=== PATIENT | female | born 1965 | race Hispanic/Latino ===

== ENCOUNTER 2022-04-28 15:01 | Emergency (ER) | payer OTHER ==
--- OUTSIDE RECORDS SUMMARY | 2022-04-28 15:04 | XMS REPORT | Continuity of Care Document ---
:1965 Author Organization [facility] t Address [address] [place] [address] Care Team Providers Name Role Phone Jose Roberto Jones Attending Clinician Unavailable Mariusz Hernadez DO Attending Clinician RICH TOLEDO Attending Clinician Unavailable Rich Toledo MD Attending Clinician Agapito CLINE Attending Clinician Doctor Unassigned, Name Attending Clinician Unavailable Scott Cheung MD Attending Clinician Scott CHEUNG Attending Clinician Unavailable Javi CLINE Attending Clinician Brad OGDEN C Attending Clinician JAVI Attending Clinician Unavailable Richie GLORIA Attending Clinician Unavailable Payers Payer Name Policy Type Policy Number Effective Date Expiration Date S ource Problems Condition Condition Condition Status Onset Resolution Last Treating Co mments Source Name Details Category Date Date Treatment Clinician Date Vaginal Vaginal Disease Active 2019- Univers itching itching 6-04 ity of 00:00: [address] Urinary Urinary Disease Active 2019- Univers frequency frequency 6-04 ity of 00:00: [address] 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 00:00: [place] vaginitis vaginitis 00 [facility] Branch H/O H/O Disease Active 2016-11 Overview: [place] s mammogram mammogram 09/20/17- i ty of 00:00: see [place] 00 scanned Medical records Branch WNL History of History of Disease Active U nivers thyroid thyroid 7 ity of disease disease 00:00: [place] 00 Medical Branch Post-menop Post-menop Disease Active U nivers ausal ausal 05-24 ity of 00:00: [place] 00 Medical Branch H/O tubal H/O tubal Disease Active Uni vers ligation ligation 05-24 ity of 00:00: [place] [facility] Depression Depression Disease Active U nivers 05-24 ity of 00:00: [place] 00 Medical Branch Generalize Generalize Disease Active U nivers d anxiety d anxiety 05-24 ity of disorder disorder 00:00: [place] [facility] Liver Liver Disease Active Univers disease disease 05-24 ity of 00:00: [place] 00 Medical Branch Obesity Obesity Disease Active Overview: Univ ers (BMI (BMI 7 ICD10 ity of 30-39.9) 30-39.9) 00:00: Diagnosis Dennys as 00 Term Medical Thoracic Medicine Specialist Branch Utility Well woman Well woman Disease Active Overview : Univers exam exam 05-24 ICD10 ity of 00:00: Diagnosis [place] Term Medical Thoracic Medicine Specialist Branch Utility Overweight Overweight Disease Active Overview : Univers 05-24 ICD10 ity of 00:00: Diagnosis [place] 00 Term Medical Thoracic Medicine Specialist Branch Utility Allergies, Adverse Reactions, Alerts Allergy Allergy Status Severity Reaction(s) Onset Inactive Treating Comm ents Source Name Type Date Date Clinician NO KNOWN Drug Active Univers ALLERGIE Class ity of [facility] Social History Social Habit Start Date Stop Date Quantity Comments Source Exposure to Not sure [place] of SARS-CoV-2 [place] [facility] (event) Branch Tobacco use and 2020-12-23 2020-12-23 Never used Universit y of exposure 00:00:00 00:00:00 [facility] Alcohol intake 2020-12-23 2020-12-23 Current University of 00:00:00 00:00:00 non-drinker of [facility] alcohol Branch (finding) Sex [birth year] At [birth year] Universit y of 00:00:00 00:00:00 [facility] Smoking Status Start Date Stop Date Source Never smoker [facility] Medications Ordered Filled Start Stop Current Ordering Indication Dosage Frequency Signature Comments Components Source Medication Medication Date Date Medication? Clinician (SIG) Name Name Fesoterodin Yes [id number] 4mg Take 1 Univers e (TOVIAZ) 2-01 tablet by ity of 4 mg tablet 00:00: mouth [place] 00 daily. Medical Branch Fesoterodin Yes [id number] 4mg Take 1 Univers e (TOVIAZ) 2-01 tablet by ity of 4 mg tablet 00:00: mouth [place] 00 daily. Medical Branch Fesoterodin Yes [id number] 4mg Take 1 Univers e (TOVIAZ) 2-01 tablet by ity of 4 mg tablet 00:00: mouth [place] 00 daily. Medical Branch mupirocin 2 Yes [id number] Apply to Univers % ointment 1-14 area(s) 3 ity of 00:00: (three) [place] 00 times Medical daily. Branch hydrOXYzine Yes [id number] 1 tablet Univers 25 mg 1-14 twice a ity of tablet 00:00: day as [place] 00 needed for Medical sleep Branch triamcinolo Yes [id number] Use BID on Univers ne 1-14 affected ity of acetonide 00:00[place] 0.1 % cream 00 body. Do [facility] not use on Branch face. mupirocin 2 Yes [id number] Apply to Univers % ointment 1-14 area(s) 3 ity of 00:00: (three) [place] 00 times Medical daily. Branch hydrOXYzine Yes [id number] 1 tablet Univers 25 mg 1-14 twice a ity of tablet 00:00: day as [place] 00 needed for Medical sleep Branch triamcinolo Yes [id number] Use BID on Univers ne 1-14 affected ity of acetonide 00:00[place] of [place] 0.1 % cream 00 body. Do [facility] not use on Branch face. mupirocin 2 Yes [id number] Apply to Univers % ointment 1-14 area(s) 3 ity of 00:00: (three) [place] 00 times Medical daily. Branch hydrOXYzine 2020-0 Yes [id number] 1 tablet Univers 25 mg 1-14 twice a ity of tablet 00:00: day as [place] 00 needed for Medical sleep Branch triamcinolo 2020-0 Yes [id number] Use BID on Univers ne 1-14 affected ity of acetonide 00:00: [place] of [place] 0.1 % cream 00 body. Do Medi matt not use on Branch face. mupirocin 2 2020-0 Yes [id number] Apply to Univers % ointment 1-14 area(s) 3 ity of 00:00: (three) [place] 00 times Medical daily. Branch hydrOXYzine 2020-0 Yes [id number] 1 tablet Univers 25 mg 1-14 twice a ity of tablet 00:00: day as [place] 00 needed for Medical sleep Branch triamcinolo 2020-0 Yes [id number] Use BID on Univers ne 1-14 affected ity of acetonide 00:00: [place] of [place] 0.1 % cream 00 body. Do Medi matt not use on Branch face. mupirocin 2 2020-0 Yes [id number] Apply to Univers % ointment 1-14 area(s) 3 ity of 00:00: (three) [place] 00 times Medical daily. Branch hydrOXYzine 2020-0 Yes [id number] 1 tablet Univers 25 mg 1-14 twice a ity of tablet 00:00: day as [place] 00 needed for Medical sleep Branch triamcinolo 2020-0 Yes [id number] Use BID on Univers ne 1-14 affected ity of acetonide 00:00: [place] of [place] 0.1 % cream 00 body. Do Medi matt not use on Branch face. mupirocin 2 2020-0 Yes [id number] Apply to Univers % ointment 1-14 area(s) 3 ity of 00:00: (three) [place] 00 times Medical daily. Branch hydrOXYzine 2020-0 Yes [id number] 1 tablet Univers 25 mg 1-14 twice a ity of tablet 00:00: day as [place] 00 needed for Medical sleep Branch triamcinolo 2020-0 Yes [id number] Use BID on Univers ne 1-14 affected ity of acetonide 00:00: [place] of [place] 0.1 % cream 00 body. Do Medi matt not use on Branch face. mupirocin 2 2020-0 Yes [id number] Apply to Univers % ointment 1-14 area(s) 3 ity of 00:00: (three) [place] 00 times Medical daily. Branch hydrOXYzine 0 Yes [id number] 1 tablet Univers 25 mg 1-14 twice a ity of tablet 00:00: day as [place] 00 needed for Medical sleep Branch triamcinolo 0 Yes [id number] Use BID on Univers ne 1-14 affected ity of acetonide 00:00: [place] of [place] 0.1 % cream 00 body. Do Medi matt not use on Branch face. mupirocin 2 2020-0 Yes [id number] Apply to Univers % ointment 1-14 area(s) 3 ity of 00:00: (three) [place] 00 times Medical daily. Branch hydrOXYzine 0 Yes [id number] 1 tablet Univers 25 mg 1-14 twice a ity of tablet 00:00: day as [place] 00 needed for Medical sleep Branch triamcinolo 0 Yes [id number] Use BID on Univers ne 1-14 affected ity of acetonide 00:00: [place] of [place] 0.1 % cream 00 body. Do Medi matt not use on Branch face. omeprazole 2020-1 Yes 40mg Take 40 mg U nivers 40 mg 2-31 by mouth ity of capsule 00:00: daily. [place] [facility] omeprazole 2020-1 Yes 40mg Take 40 mg U nivers 40 mg 2-31 by mouth ity of capsule 00:00: daily. [place] [facility] omeprazole 2020-1 Yes 40mg Take 40 mg U nivers 40 mg 2-31 by mouth ity of capsule 00:00: daily. Medical Branch omeprazole 2020-1 Yes 40mg Take 40 mg U nivers 40 mg 2-31 by mouth ity of capsule 00:00: daily. [place] [facility] omeprazole 2020-1 Yes 40mg Take 40 mg U nivers 40 mg 2-31 by mouth ity of capsule 00:00: daily. [place] [facility] omeprazole 2020-1 Yes 40mg Take 40 mg U nivers 40 mg 2-31 by mouth ity of capsule 00:00: daily. [place] [address] Medical Branch ziprasidone 2019-11- No TAKE 1 Uni vers 40 mg 12-06 CAPSULE BY ity of capsule 00:00: 00:00 MOUTH IN [place] 00 :00 THE Medical MORNING Branch WITH FOOD ziprasidone 2019-11- No TAKE 1 Uni vers 40 mg 12-06 CAPSULE BY ity of capsule 00:00: 00:00 MOUTH IN [place] 00 :00 THE Medical MORNING Branch WITH FOOD cephALEXin 2019-11- No [id number] 500mg Take 2 Univers 250 mg 12-2307 capsules ity of capsule 00:00: 05:59 by mouth [place] 00 :00 every 12 Medical (twelve) Branch hours for 5 days. ziprasidone 2018-0 Yes TK 2 CS PO Univers 60 mg 5-15 HS WF ity of capsule 00:00: [address] Branch ziprasidone 2018-0 Yes TK 2 CS PO Univers 60 mg 5-15 HS WF ity of capsule 00:00: [address] Branch ziprasidone 2019-0 Yes TK 2 CS PO Univers 60 mg 5-15 HS WF ity of capsule 00:00: [address] Branch ziprasidone 2019-0 Yes TK 2 CS PO Univers 60 mg 5-15 HS WF ity of capsule 00:00: [address] Branch ziprasidone 2019-0 Yes TK 2 CS PO Univers 60 mg 5-15 HS WF ity of capsule 00:00: [address] Branch ziprasidone 2019-0 Yes TK 2 CS PO Univers 60 mg 5-15 HS WF ity of capsule 00:00: [address] Branch ziprasidone 2019-0 Yes TK 2 CS PO Univers 60 mg 5-15 HS WF ity of capsule 00:00: [address] Branch ziprasidone 2019-0 Yes TK 2 CS PO Univers 60 mg 5-15 HS WF ity of capsule 00:00: [place] [address] Medical Branch ziprasidone 2019-0 Yes TK 2 CS PO Univers 60 mg 5-15 HS WF ity of capsule 00:00: [address] Branch ziprasidone 2019-0 Yes TK 2 CS PO Univers 60 mg 5-15 HS WF ity of capsule 00:00: [address] Branch ziprasidone 2019-0 Yes TK 2 CS PO Univers 60 mg 5-15 HS WF ity of capsule 00:00: [address] Branch ziprasidone 2019-0 Yes TK 2 CS PO Univers 60 mg 5-15 HS WF ity of capsule 00:00: [place] 00 Medical Branch ziprasidone 2019-0 Yes TK 2 CS PO Univers 60 mg 5-15 HS WF ity of capsule 00:00: [place] 00 Medical Branch ziprasidone 2019-0 Yes TK 2 CS PO Univers 60 mg 5-15 HS WF ity of capsule 00:00: [place] 00 Medical Branch ziprasidone 2019-0 Yes TK 2 CS PO Univers 60 mg 5-15 HS WF ity of capsule 00:00: [place] [address] Medical Branch ziprasidone 2019-0 Yes TK 2 CS PO Univers 60 mg 5-15 HS WF ity of capsule 00:00: [place] [address] Medical Branch ziprasidone 2019-0 Yes TK 2 CS PO Univers 60 mg 5-15 HS WF ity of capsule 00:00: [place] [address] Medical Branch ziprasidone 2019-0 Yes TK 2 CS PO Univers 60 mg 5-15 HS WF ity of capsule 00:00: [place] [address] Medical Branch ziprasidone 2019-0 Yes TK 2 CS PO Univers 60 mg 5-15 HS WF ity of capsule 00:00: [place] [address] Medical Branch ziprasidone 2019-0 Yes TK 2 CS PO Univers 60 mg 5-15 HS WF ity of capsule 00:00: [place] [address] Medical Branch ziprasidone 2019-0 Yes TK 2 CS PO Univers 60 mg 5-15 HS WF ity of capsule 00:00: [place] [address] Medical Branch ziprasidone 2019-0 Yes TK 2 CS PO Univers 60 mg 5-15 HS WF ity of capsule 00:00: [place] [address] Medical Branch ziprasidone 2019-0 Yes TK 2 CS PO Univers 60 mg 5-15 HS WF ity of capsule 00:00: [place] 00 Medical Branch triamcinolo 2019-0 Yes MAR AA BID Univers ne 5-10 ity of acetonide 00:00: [place] 0.1 % 00 Medical ointment Branch triamcinolo 2019-0 Yes MAR AA BID Univers ne 5-10 ity of acetonide 00:00: [place] 0.1 % 00 Medical ointment Branch triamcinolo 2019-0 Yes MAR AA BID Univers ne 5-10 ity of acetonide 00:00: [place] 0.1 % 00 Medical ointment Branch triamcinolo 2019-0 Yes MAR AA BID Univers ne 5-10 ity of acetonide 00:00: [place] 0.1 % 00 Medical ointment Branch [facility] 2019-0 Yes MAR AA BID Univers ne 5-10 ity of acetonide 00:00: [place] 0.1 % 00 Medical ointment Branch [facility] 2019-0 Yes MAR AA BID Univers ne 5-10 ity of acetonide 00:00: [place] 0.1 % 00 Medical ointment Branch [facility] 2019-0 Yes MAR AA BID Univers ne 5-10 ity of acetonide 00:00: [place] 0.1 % 00 Medical ointment Branch [facility] 2019-0 Yes MAR AA BID Univers ne 5-10 ity of acetonide 00:00: [place] 0.1 % 00 Medical ointment Branch [facility] 2019-0 Yes MAR AA BID Univers ne 5-10 ity of acetonide 00:00: [place] 0.1 % 00 Medical ointment Branch [facility] 2019-0 Yes MAR AA BID Univers ne 5-10 ity of acetonide 00:00: [place] 0.1 % 00 Medical ointment Branch [facility] 2019-0 Yes MAR AA BID Univers ne 5-10 ity of acetonide 00:00: [place] 0.1 % 00 Medical ointment Branch [facility] 2019-0 Yes MAR AA BID Univers ne 5-10 ity of acetonide 00:00: [place] 0.1 % 00 Medical ointment Branch [facility] 2019-0 Yes MAR AA BID Univers ne 5-10 ity of acetonide 00:00: [place] 0.1 % 00 Medical ointment Branch [facility] 2019-0 Yes MAR AA BID Univers ne 5-10 ity of acetonide 00:00: [place] 0.1 % 00 Medical ointment Branch [facility] 2019-0 Yes MAR AA BID Univers ne 5-10 ity of acetonide 00:00: [place] 0.1 % 00 Medical ointment Branch [facility] 2019-0 Yes MAR AA BID Univers ne 5-10 ity of acetonide 00:00: [place] 0.1 % 00 Medical ointment Branch [facility] 2019-0 Yes MAR AA BID Univers ne 5-10 ity of acetonide 00:00: [place] 0.1 % 00 Medical ointment Branch [facility] 2019-0 Yes MAR AA BID Univers ne 5-10 ity of acetonide 00:00: [place] 0.1 % 00 Medical ointment Branch [facility] Yes MAR AA BID Univers ne 5-10 ity of acetonide 00:00: [place] 0.1 % 00 Medical ointment Branch [facility] Yes MAR AA BID Univers ne 5-10 ity of acetonide 00:00: [place] 0.1 % 00 Medical ointment Branch [facility] Yes MAR AA BID Univers ne 5-10 ity of acetonide 00:00: [place] 0.1 % 00 Medical ointment Branch [facility] Yes MAR AA BID Univers ne 5-10 ity of acetonide 00:00: [place] 0.1 % 00 Medical ointment Branch [facility] Yes [facility] AA BID Univers ne 5-10 ity of acetonide 00:00: [place] 0.1 % 00 Medical ointment Branch LORazepam Yes TK 1 T PO Uni vers 0.5 mg 3-25 Q 8 H PRF ity of tablet 00:00: ANXIETY [place] [facility] LORazepam Yes TK 1 T PO Uni vers 0.5 mg 3-25 Q 8 H PRF ity of tablet 00:00: ANXIETY [place] [facility] LORazepam Yes TK 1 T PO Uni vers 0.5 mg 3-25 Q 8 H PRF ity of tablet 00:00: ANXIETY [place] [facility] Branch LORazepam Yes TK 1 T PO Uni vers 0.5 mg 3-25 Q 8 H PRF ity of tablet 00:00: ANXIETY [place] [facility] LORazepam Yes TK 1 T PO Uni vers 0.5 mg 3-25 Q 8 H PRF ity of tablet 00:00: ANXIETY [place] [facility] LORazepam Yes TK 1 T PO Uni vers 0.5 mg 3-25 Q 8 H PRF ity of tablet 00:00: ANXIETY [place] [facility] LORazepam Yes TK 1 T PO Uni vers 0.5 mg 3-25 Q 8 H PRF ity of tablet 00:00: ANXIETY [place] [facility] LORazepam Yes TK 1 T PO Uni vers 0.5 mg 3-25 Q 8 H PRF ity of tablet 00:00: ANXIETY [place] [facility] LORazepam Yes TK 1 T PO Uni vers 0.5 mg 3-25 Q 8 H PRF ity of tablet 00:00: ANXIETY Medical Branch LORazepam Yes TK 1 T PO Uni vers 0.5 mg 3-25 Q 8 H PRF ity of tablet 00:00: ANXIETY Medical Branch LORazepam Yes TK 1 T PO Uni vers 0.5 mg 3-25 Q 8 H PRF ity of tablet 00:00: ANXIETY Medical Branch LORazepam Yes TK 1 T PO Uni vers 0.5 mg 3-25 Q 8 H PRF ity of tablet 00:00: ANXIETY Medical Branch LORazepam Yes TK 1 T PO Uni vers 0.5 mg 3-25 Q 8 H PRF ity of tablet 00:00: ANXIETY [place] [facility] LORazepam Yes TK 1 T PO Uni vers 0.5 mg 3-25 Q 8 H PRF ity of tablet 00:00: ANXIETY [place] [facility] LORazepam Yes TK 1 T PO Uni vers 0.5 mg 3-25 Q 8 H PRF ity of tablet 00:00: ANXIETY [place] [facility] LORazepam Yes TK 1 T PO Uni vers 0.5 mg 3-25 Q 8 H PRF ity of tablet 00:00: ANXIETY [place] [facility] LORazepam Yes TK 1 T PO Uni vers 0.5 mg 3-25 Q 8 H PRF ity of tablet 00:00: ANXIETY [place] [facility] LORazepam Yes TK 1 T PO Uni vers 0.5 mg 3-25 Q 8 H PRF ity of tablet 00:00: ANXIETY [place] [facility] LORazepam Yes TK 1 T PO Uni vers 0.5 mg 3-25 Q 8 H PRF ity of tablet 00:00: ANXIETY [place] [facility] LORazepam Yes TK 1 T PO Uni vers 0.5 mg 3-25 Q 8 H PRF ity of tablet 00:00: ANXIETY [place] [facility] LORazepam Yes TK 1 T PO Uni vers 0.5 mg 3-25 Q 8 H PRF ity of tablet 00:00: ANXIETY [place] [facility] LORazepam Yes TK 1 T PO Uni vers 0.5 mg 3-25 Q 8 H PRF ity of tablet 00:00: ANXIETY [place] [facility] LORazepam Yes TK 1 T PO Uni vers 0.5 mg 3-25 Q 8 H PRF ity of tablet 00:00: ANXIETY Medical Branch benztropine 2019-0 Yes TK 1 T PO U nivers 0.5 mg 3-20 BID PRN ity of tablet 00:00: FOR SHAKING/ST Medical IFFNESS/RE Branch STLESSNESS benztropine 2019-0 Yes TK 1 T PO U nivers 0.5 mg 3-20 BID PRN ity of tablet 00:00: FOR SHAKING/ST Medical IFFNESS/RE Branch STLESSNESS benztropine 2019-0 Yes TK 1 T PO U nivers 0.5 mg 3-20 BID PRN ity of tablet 00:00: FOR SHAKING/ST Medical IFFNESS/RE Branch STLESSNESS benztropine 2019-0 Yes TK 1 T PO U nivers 0.5 mg 3-20 BID PRN ity of tablet 00:00: FOR SHAKING/ST Medical IFFNESS/RE Branch STLESSNESS benztropine 2019-0 Yes TK 1 T PO U nivers 0.5 mg 3-20 BID PRN ity of tablet 00:00: FOR SHAKING/ST Medical IFFNESS/RE Branch STLESSNESS benztropine 2019-0 Yes TK 1 T PO U nivers 0.5 mg 3-20 BID PRN ity of tablet 00:00: FOR SHAKING/ST Medical IFFNESS/RE Branch STLESSNESS benztropine 2019-0 Yes TK 1 T PO U nivers 0.5 mg 3-20 BID PRN ity of tablet 00:00: FOR SHAKING/ST Medical IFFNESS/RE Branch STLESSNESS benztropine 2019-0 Yes TK 1 T PO U nivers 0.5 mg 3-20 BID PRN ity of tablet 00:00: FOR SHAKING/ST Medical IFFNESS/RE Branch STLESSNESS benztropine 2019-0 Yes TK 1 T PO U nivers 0.5 mg 3-20 BID PRN ity of tablet 00:00: FOR SHAKING/ST Medical IFFNESS/RE Branch STLESSNESS benztropine 2019-0 Yes TK 1 T PO U nivers 0.5 mg 3-20 BID PRN ity of tablet 00:00: FOR [place] SHAKING/ST Medical IFFNESS/RE Branch STLESSNESS benztropine 2019-0 Yes TK 1 T PO U nivers 0.5 mg 3-20 BID PRN ity of tablet 00:00: FOR [place] SHAKING/ST Medical IFFNESS/RE Branch STLESSNESS benztropine 2019-0 Yes TK 1 T PO U nivers 0.5 mg 3-20 BID PRN ity of tablet 00:00: FOR [place] SHAKING/ST Medical IFFNESS/RE Branch STLESSNESS benztropine 2019-0 Yes TK 1 T PO U nivers 0.5 mg 3-20 BID PRN ity of tablet 00:00: FOR [place] SHAKING/ST Medical IFFNESS/RE Branch STLESSNESS benztropine 2019-0 Yes TK 1 T PO U nivers 0.5 mg 3-20 BID PRN ity of tablet 00:00: FOR [place] SHAKING/ST Medical IFFNESS/RE Branch STLESSNESS benztropine 2019-0 Yes TK 1 T PO U nivers 0.5 mg 3-20 BID PRN ity of tablet 00:00: FOR [place] SHAKING/ST Medical IFFNESS/RE Branch STLESSNESS benztropine 2019-0 Yes TK 1 T PO U nivers 0.5 mg 3-20 BID PRN ity of tablet 00:00: FOR [place] SHAKING/ST Medical IFFNESS/RE Branch STLESSNESS benztropine 2019-0 Yes TK 1 T PO U nivers 0.5 mg 3-20 BID PRN ity of tablet 00:00: FOR [place] SHAKING/ST Medical IFFNESS/RE Branch STLESSNESS benztropine 2019-0 Yes TK 1 T PO U nivers 0.5 mg 3-20 BID PRN ity of tablet 00:00: FOR [place] SHAKING/ST Medical IFFNESS/RE Branch STLESSNESS benztropine 2019-0 Yes TK 1 T PO U nivers 0.5 mg 3-20 BID PRN ity of tablet 00:00: FOR [place] SHAKING/ST Medical IFFNESS/RE Branch STLESSNESS benztropine 2019-0 Yes TK 1 T PO U nivers 0.5 mg 3-20 BID PRN ity of tablet 00:00: FOR [place] SHAKING/ST Medical IFFNESS/RE Branch STLESSNESS benztropine 2019-0 Yes TK 1 T PO U nivers 0.5 mg 3-20 BID PRN ity of tablet 00:00: FOR SHAKING/ST Medical IFFNESS/RE Branch STLESSNESS benztropine 2019-0 Yes TK 1 T PO U nivers 0.5 mg 3-20 BID PRN ity of tablet 00:00: FOR SHAKING/ST Medical IFFNESS/RE Branch STLESSNESS benztropine 2019-0 Yes TK 1 T PO U nivers 0.5 mg 3-20 BID PRN ity of tablet 00:00: FOR SHAKING/ST Medical IFFNESS/RE Branch STLESSNESS Ativan Ativan Yes Danyel 1 tablet Commo n [place] as needed Spirit at bedtime - [facility] Vital Signs Vital Name Observation Time Observation Value Comments Source Systolic blood 2020-12-23 21:28:00 144 mm[Hg] Univer sity of pressure [facility] Diastolic blood 2020-12-23 21:28:00 85 mm[Hg] Unive rsity of [facility] Heart rate 2020-12-23 21:28:00 80 /min [facility] Respiratory rate 2020-12-23 21:28:00 18 /min [facility] Body height 2020-12-23 21:28:00 152.4 cm [facility] Body weight 2020-12-23 21:28:00 69.854 kg [facility] BMI 2020-12-23 21:28:00 30.08 kg/m2 [facility] Oxygen saturation in 2020-12-23 21:28:00 97 /min [facility] Arterial blood by [facility] Pulse oximetry Branch Systolic blood 2020-12-06 19:09:00 129 mm[Hg] Univer sity of pressure [facility] Diastolic blood 2020-12-06 19:09:00 72 mm[Hg] Unive rsity of pressure [facility] Heart rate 2020-12-06 19:09:00 70 /min [facility] Body temperature 2020-12-06 19:09:00 36.67 [facility] Respiratory rate 2020-12-06 19:09:00 18 /min [facility] Body weight 2020-12-06 19:09:00 68.539 kg Universi ty of [place] [facility] BMI 2020-12-06 19:09:00 29.51 kg/m2 Universi ty of [place] [facility] Oxygen saturation in 2020-12-06 19:09:00 98 /min University of Arterial blood by [facility] Pulse oximetry Branch Systolic blood 2020-10-21 19:38:00 116 mm[Hg] Univer sity of pressure [place] [facility] Diastolic blood 2020-10-21 19:38:00 67 mm[Hg] Unive rsity of pressure [place] [facility] Heart rate 2020-10-21 19:38:00 79 /min Universi ty of [place] [facility] Respiratory rate 2020-10-21 19:38:00 18 /min Univ ersity of [place] [facility] Body height 2020-10-21 19:38:00 152.4 cm Universi ty of [place] [facility] Body weight 2020-10-21 19:38:00 68.675 kg Universi ty of [place] [facility] BMI 2020-10-21 19:38:00 29.57 kg/m2 [facility]i ty [facility] [place] [facility] Oxygen saturation in 2020-10-21 19:38:00 97 /min University of Arterial blood by [facility] Pulse oximetry Branch Systolic blood 2020-10-14 19:26:00 116 mm[Hg] Univer sity of pressure [place] [facility] Diastolic blood 2020-10-14 19:26:00 77 mm[Hg] Unive rsity of pressure [place] [facility] Heart rate 2020-10-14 19:26:00 84 /min Universi ty of [place] [facility] Body temperature 2020-10-14 19:26:00 36.44 [facility] Univ ersity of [place] [facility] Respiratory rate 2020-10-14 19:26:00 18 /min Univ ersity of [place] [facility] Body weight 2020-10-14 19:26:00 67.314 kg Universi ty of [place] [facility] BMI 2020-10-14 19:26:00 28.98 kg/m2 [facility] [place] [facility] Systolic blood 2020-06-10 15:34:00 127 mm[Hg] Univer sity of pressure [place] [facility] Diastolic blood 2020-06-10 15:34:00 89 mm[Hg] Unive rsity of pressure [place] [facility] Heart rate 2020-06-10 15:34:00 93 /min [facility] Body temperature 2020-06-10 15:34:00 36.61 [facility] Respiratory rate 2020-06-10 15:34:00 16 /min [facility] Body height 2020-06-10 15:34:00 152.4 cm [facility] Body weight 2020-06-10 15:34:00 69.854 kg [facility] BMI 2020-06-10 15:34:00 30.08 kg/m2 [facility] Procedures Procedure Date / Time Performing Clinician Source Performed DISCLOSURE AND CONSENT, 2020-12-06 06:01:00 Doctor Unassigned, N o [facility] MEDICAL AND SURGICAL [facility] PROCEDURES POCT URINALYSIS 2020-10-21 20:33:00 Sh[place] [facility] o [facility] PATIENT QUESTIONNAIRE 2020-10-21 06:01:00 Doctor Unassigned, No [facility] NOTICE OF PRIVACY 2020-06-10 15:08:13 Doctor Unassigned, No [facility] Encounters Start End Encounter Admission Attending Care Care Encounter Source Date/Time Date/Time Type Type Clinicians Facility Department ID 2022-04-13 Outpatient Jones, STLMLC STLMLC [id number] Common 12:59:04 [facility] 2022-04-09 Outpatient Jones, STLMLC STLMLC [id number] Common 16:18:00 [facility] 2021-12-17 Outpatient Jones, STLMLC STLMLC [id number] Common 14:32:00 Danyel [facility] 2021-12-17 Outpatient Jones, STLMLC STLMLC [id number] Common 14:31:33 Danyel [facility] 2021-12-17 Outpatient Jones, STLMLC STLMLC [id number] Common 13:45:17 Danyel [id number] [facility] 2021-12-17 Outpatient Jones, STLMLC STLMLC [id number] Common 12:48:47 [facility] 37637 [facility] 2021-12-17 Outpatient Jones, STLMLC STLMLC [id number] Common 12:48:29 Danyel [id number] [facility] 2021-12-17 Outpatient Jones, STLMLC STLMLC [id number] Common 12:18:24 Danyel 26791 [facility] 2021-12-17 Outpatient Jones, STLMLC STLMLC [id number] Common 11:44:15 Danyel 64882 [facility] 2021-12-17 Outpatient Jones, STLMLC STLMLC [id number] Common 11:25:09 Danyel 08618 [facility] 2021-12-17 Outpatient Jones, STLMLC STLMLC [id number] Common 11:24:16 Danyel 16781 [facility] 2021-12-17 Outpatient Jones, STLMLC STLMLC [id number] Common 11:16:21 Danyel 29090 [facility] 2022-04-16 2022-04-16 ambulatory STLMLC STLMLC [id number] Common 00:00:00 00:00:00 [facility] 2022-04-13 2022-04-13 ambulatory STLMLC STLMLC [id number] Common 00:00:00 00:00:00 [facility] 2022-02-24 2022-02-24 ambulatory STLMLC STLMLC [id number] Common 00:00:00 00:00:00 [facility] 2021-11-27 2021-11-27 ambulatory STLMLC STLMLC [id number] Common 00:00:00 00:00:00 [facility] 2021-10-21 2021-10-21 ambulatory STLMLC STLMLC [id number] Common 00:00:00 00:00:00 [facility] 2021-08-27 2021-08-27 Outpatient STLMLC STLMLC [id number] Common 00:00:00 00:00:00 [facility] 2021-08-13 2021-08-13 Outpatient STLMLC STLMLC [id number] Common 00:00:00 00:00:00 [facility] 2021-07-24 2021-07-24 Outpatient STLMLC STLMLC [id number] Common 00:00:00 00:00:00 [facility] 2021-07-24 2021-07-24 Outpatient STLMLC STLMLC [id number] Common 00:00:00 00:00:00 [facility] 2021-05-29 2021-05-29 Outpatient STLMLC STLMLC [id number] Common 00:00:00 00:00:00 [facility] 2021-05-29 2021-05-29 Outpatient STLMLC STLMLC [id number] Common 00:00:00 00:00:00 [facility] 2021-04-22 2021-04-22 Outpatient STLMLC STLMLC [id number] Common 00:00:00 00:00:00 [facility] 2021-02-26 2021-02-26 Outpatient STLMLC STLMLC [id number] Common 00:00:00 00:00:00 [facility] 2021-02-01 2021-02-01 Patient Satya [facility] [id number] Univers 00:00:00 00:00:00 [id number] [id number] Madalyn MARIN [phone] [place] [address] [address] 2021-01-21 2021-01-21 Outpatient STLMLC STLMLC [id number] Common 00:00:00 00:00:00 [facility] 2021-01-20 2021-01-20 Outpatient R SHAYY [facility] [id number] P-20 Univers 16:00:00 16:00:00 [id number] ity [facility] 2020-12-24 2020-12-24 Outpatient STLMLC STLMLC [id number] Common 00:00:00 00:00:00 [facility] 2020-12-23 2020-12-23 Office Shayy Toledo [facility] [id number] Univers 15:22:06 16:01:41 Visit [facility] [id number] [id number] [phone] [address] Office Building 2020-12-23 2020-12-23 Outpatient Henry [facility]O [facility] [id number] P-[id number] Univers 15:30:00 15:30:00 [id number] ity of [facility] 2020-12-23 2020-12-23 Outpatient Henry [facility]EDO [facility] [id number] Univers 15:30:00 15:30:00 ity of [facility] 2020-12-06 2020-12-06 Office Ray Altman [facility] 1.2.840.114 [id number] Univers 12:55:13 13:25:13 Visit Shayy Toledo [facility] [id number] [id number] [phone] [address] Office Building 2020-12-06 2020-12-06 Outpatient Henry TOLEDO [facility] [id number] P-[id number] Univers 13:00:00 13:00:00 [id number] ity of [facility] 2020-12-06 2020-12-06 Outpatient Henry TOLEDO [facility] [id number] Univers 13:00:00 13:00:00 ity of [facility] 2020-12-06 2020-12-06 Orders Doctor SWANSON [id number] Univers 00:00:00 00:00:00 Only Unassigned, TAVARES [id number] ity of [place] [facility] [id number] Dennys as [phone] [place] [address] [address] 2020-12-05 2020-12-05 [facility] [id number] Univers 08:40:53 16:49:31 Visit Philomena AARON [id number] [id number] [phone] [address] [facility] 2020-12-05 2020-12-05 Office Jonatan [facility] 1.2.840.114 [id number] 08:40:53 16:49:31 Visit Philomena AARON [id number] [place] [id number] [place] [phone] [facility] 2020-12-05 2020-12-05 [facility] [id number] Univers 08:45:00 08:45:00 PHILOMENA [id number] [facility] 2020-12-05 2020-12-05 [facility] [id number] Univers 08:45:00 08:45:00 PHILOMENA [facility] 2020-11-28 2020-11-28 Outpatient STLMLC STLMLC [id number] Common 00:00:00 00:00:00 [facility] 2020-11-28 2020-11-28 Outpatient STLMLC STLMLC [id number] Common 00:00:00 00:00:00 [facility] 2020-11-01 2020-11-01 Outpatient STLMLC STLMLC [id number] Common 00:00:00 00:00:00 [facility] 2020-10-22 2020-10-22 Telephone [facility] 1.2.840.114 [id number] Univers 00:00:00 00:00:00 Juan Gering [id number] [id number] [phone] In dical nal [address] [facility] 2020-10-21 2020-10-21 Office [facility] 1.2.840.114 [id number] Univers 13:20:16 14:09:54 Visit [facility] [id number] [id number] [phone] [facility] 098 [facility] 2020-10-21 2020-10-21 Outpatient [facility]AYY [facility] [id number] P-20 Univers 13:30:00 13:30:00 [facility] 2020-10-21 2020-10-21 Outpatient R SHAYY [facility] [id number] Univers 13:30:00 13:30:00 ity of [facility] 2020-10-21 2020-10-21 Orders Doctor SKY 1.2.840.114 [id number] Univers 00:00:00 00:00:00 Only Unassigned, TAVAERS [id number] ity of [place] [facility] [id number] Dennys as [phone] [address] 2020-10-15 2020-10-15 Telephone [facility] 1.2.840.114 [id number] Univers 00:00:00 00:00:00 [facility] [id number] [id number] [phone] [address] 2020-10-15 2020-10-15 Telephone [facility] 1.2.840.114 [id number] Univers 00:00:00 00:00:00 Juansatish [place] [id number] [id number] [phone] [address] 2020-10-15 2020-10-15 Telephone [facility] 1.2.840.114 [id number] Univers 00:00:00 00:00:00 Tamie Quiroz BOAT TENDER [id number] [facility] [id number] Dennys as MATERNAL [phone] Med ical & CHILD 107 [facility] 2020-10-14 2020-10-14 Office [facility] 1.2.840.114 [id number] Univers 13:01:52 13:28:42 Visit Juan Gering [id number] [id number] [phone] [address] 2020-10-14 2020-10-14 Outpatient R JAVI [facility] [id number] Univers 13:00:00 13:00:00 JUAN ity [facility] 2020-10-14 2020-10-14 Outpatient R JAVI [facility] [id number] P-[id number] Univers 09:30:00 09:30:00 JUAN [id number] ity [facility] 2020-10-14 2020-10-14 Outpatient STLMLC STLMLC [id number] Common 00:00:00 00:00:00 [facility] 2020-08-28 2020-08-28 Outpatient STLMLC STLMLC [id number] Common 00:00:00 00:00:00 [facility] 2020-08-15 2020-08-15 Outpatient STLMLC STLMLC [id number] Common 00:00:00 00:00:00 [facility] 2020-08-14 2020-08-14 Outpatient STLMLC STLMLC [id number] Common 00:00:00 00:00:00 [facility] 2020-07-31 2020-07-31 Outpatient [facility] [id number] Common 11:42:00 11:42:[address] [facility] 2020-07-31 2020-07-31 Outpatient [facility] [id number] Common 10:00:00 10:00:[address] [facility] 2020-06-10 2020-06-18 Office [facility] [id number] Univers 10:20:52 15:33:43 Visit Tamie Quiroz BOAT TENDER [id number] ity [facility] [id number] Dennys as MATERNAL [phone] Med ical & CHILD [address] [place] [address] 2020-06-11 2020-06-11 Outpatient [facility] [id number] Common 13:45:00 13:45:[address] [facility] 2020-06-10 2020-06-10 Outpatient Henry GLORIA [facility] [id number] Univers 10:15:00 10:15:00 TAMIE [id number] ity o f [facility] 2020-06-10 2020-06-10 Out[facility] [id number] Univers 10:15:00 10:15:00 TAMIE chand o f [facility] 2020-06-10 2020-06-10 Orders Doctor SKY 1.2.840.114 [id number] 00:00:00 00:00:00 Only Unassigned, TAVARES [id number] ity of [place] [facility] [id number] Dennys as [phone] [address] 2020-06-04 2020-06-04 Out[facility] [id number] Common 08:47:00 08:47:[address] [facility] 2020-05-28 2020-05-28 [facility] [id number] Common 15:17:00 15:17:[address] [facility] 2020-05-23 2020-05-23 Out[facility] [id number] Common 16:02:00 16:02:[address] [facility] 2020-05-22 2020-05-22 Out[facility] [id number] Common 09:28:00 09:28:[address] [facility] 2020-05-13 2020-05-13 Out[facility] [id number] Common 10:12:00 10:12:[address] [facility] 2020-05-08 2020-05-08 Out[facility] [id number] Common 14:30:00 14:30:[address] [facility] 2020-05-08 2020-05-08 Out[facility] [id number] Common 07:55:00 07:55:[address] [facility] 2020-04-30 2020-04-30 Out[facility] [id number] Common 10:45:00 10:45:[address] [facility] 2020-04-30 2020-04-30 Out[facility] [id number] Common 10:45:00 10:45:[address] [facility] 2020-04-08 2020-04-08 Out[facility] [id number] Common 13:10:00 13:10:[address] [facility] 2020-02-17 2020-02-17 Out[facility] [id number] Common 15:00:00 15:00:[address] [facility] 2020-02-16 2020-02-16 [facility] [id number] Common 16:47:00 16:47:[address] [facility] 2020-01-29 2020-01-29 Out[facility] [id number] Common 10:30:00 10:30:[address] [facility] 2019-10-30 2019-10-30 Out[facility] [id number] Common 10:15:00 10:15:[address] [facility] 2019-10-24 2019-10-24 Out[facility] [id number] Common 08:29:00 08:29:[address] [facility] 2019-07-27 2019-07-27 [facility] [id number] Common 09:45:00 09:45:[address] [facility] 2019-05-23 2019-05-23 Out[facility] [id number] Common 11:41:00 11:41:[address] [facility] 2019-03-08 2019-03-08 [facility] [id number] Common 14:45:00 14:45:00 t Urgent [facility] 2019-02-22 2019-02-22 Out[facility] [id number] Common 10:00:00 10:00:[address] [facility] 2019-02-01 2019-02-01 Out[facility] [id number] Common 09:33:00 09:33:[address] [facility] 2019-01-25 2019-01-25 Out[facility] [id number] Common 13:30:00 13:30:[address] [facility] Results Test Description Test Time Test Comments Results Result Comments Source TSH, THIRD GENERATION 2022-01-30 05:29:52 Test Item Value Reference Range Interpretation Comme nts TSH, THIRD GENERATION (test code = 2821) 1.630 UIU/ML 0.400-4.100 VITAMIN D, 25 [id number] 05:21:29 Test Item Value Reference Range Interpretation Comments VITAMIN D, 25 OH 12 NG/ML SEE BELOW L NOTE: 25-H YDROXYVITAMIN D (test code = 4958) ASSAY INC LUDES 25-HYDROXYVITAM IN D2 AND D3. METHOD OLOGY IS CHEMILUMINESCEN T IMMUNOASSAY. INTERPRE TIVE RANGES PEDIATRIC (<17 YEARS) . . . . . . . . . . . NG/ML 20-100A DULT: INSUFFICIENT . . . . . . . . . . . . . . N G/ML <20 SUBOPTI MAL . . . . . . . . . . . . . . . NG/ML 20-29 OPTIMAL . . . . . . . . . . . . . . . . . NG/ML 30-100 UNLESS OTHERW ISE INDICATED, ALL TESTING PERFORMED ATCLI NICAL PATHOLOGY LABOR [employer] [address] [place] [address] LABORATORY DIRE CTOR: Jose Roberto BRYSON. CLIA NUMBER [id number] CAP ACCREDITATION N O. [id number] HEMOGLOBIN [id number] 05:14:35 Test Item Value Reference Range Interpretation Comments HEMOGLOBIN A1c (test code = 75979) 5.8 % 4.2-5.6 H COMPREHENSIVE METABOLIC [id number] 05:08:46 Test Item Value Reference Range Interpretation Comments GLUCOSE (test code = 107 MG/DL 70-99 H 2216) BUN (test code = 13 MG/DL 6-20 2207) CREATININE (test 0.86 MG/DL 0.60-1.30 code = 2213) eGFR (2020 CKD-EPI) 79 ML/MIN/1.73 >60 (test code = 81706) CALC BUN/CREAT (test 15 RATIO 6-28 code = 2235) SODIUM (test code = 144 MEQ/L 680-818 4476) POTASSIUM (test code 4.6 MEQ/L 3.5-5.4 = 2227) CHLORIDE (test code 104 MEQ/L 95-107 = 2214) CARBON DIOXIDE (test 25 MEQ/L 19-31 code = 2205) CALCIUM (test code = 9.6 MG/DL 8.5-10.5 2208) PROTEIN, TOTAL (test 7.5 G/DL 6.1-8.3 code = 2228) ALBUMIN (test code = 4.6 G/DL 3.5-5.2 2200) CALC GLOBULIN (test 2.9 G/DL 1.9-3.7 code = 2239) CALC A/G RATIO (test 1.6 RATIO 1.0-2.6 code = 2233) BILIRUBIN, TOTAL <0.2 MG/DL See_Comment [Automated message] (test code = 2206) The syste [employer] which generated this result transmit franklin reference range : <=1.2. The refe rence range was not u sed to interpret th is result as normal/abnormal . ALKALINE PHOSPHATASE 69 U/L 40-136 (test code = 2203) AST (test code = 20 U/L 9-40 2217) ALT (test code = 23 U/L 5-40 2218) LIPID [id number] 05:08:46 Test Item Value Reference Range Interpretation Comments CHOLESTEROL (test 214 MG/DL <200 H code = 2210) TRIGLYCERIDES (test 80 MG/DL <150 code = 2232) HDL CHOLESTEROL (test 60 MG/DL >39 code = 222) CALC LDL CHOL (test 137 MG/DL <100 H NOTE: C ALCULATED LDL code = 2237) IS BASED ON HALINA-CROCKETT METHOD WHICHINCLUDES ADJUSTABLE TRIGLYCERIDE:VL DL CHOLESTEROL RAT IO.THIS FACTOR VARIES B Y MEASURED TRIGLY CERIDE AND NON-HDLCHOL ESTEROL CONCENTRATIONS WITH INCREASED CALCU LATED LDL SEENIN HIGH ER TRIGLYCERIDE OR LOWER NON-HDL SPECIME NS. FOR MOREINFORMATION , SEE CLIENT ANNOUNCE MENT AT [email or web address] RISK RATIO LDL/HDL 2.28 RATIO <3.22 (test code = 2238) CBC W/AUTO DIFF WITH [id number] 03:31:03 Test Item Value Reference Range Interpretation Comments WBC (test code = 4.4 K/UL 3.5-11.0 1001) RBC (test code = 5.26 M/UL 3.80-5.40 1002) HEMOGLOBIN (test code 14.2 G/DL 11.5-15.5 = 1003) HEMATOCRIT (test code 43.2 % 34.0-45.0 = 1004) MCV (test code = 82.1 fL 80.0-99.0 1005) MCH (test code = 27.0 PG 25.0-33.0 1006) MCHC (test code = 32.9 G/DL 31.0-36.0 1007) RDW (test code = 12.9 % 11.5-15.0 1038) NEUTROPHILS (test 54.0 % code = 1008) LYMPHOCYTES (test 35.2 % code = 1010) MONOCYTES (test code 7.0 % = 1011) EOSINOPHILS (test 2.7 % code = 1012) BASOPHILS (test code 0.9 % = 1013) IMMATURE GRANULOCYTES 0.2 % (test code = 1036) NUCLEATED RBCS (test 0.0 /100 See_Comment [Autom ated code = 1065) WBC'S message] The sy stem which generated this result transmitted reference range : 0.0. The refere nce range was not u sed to interpret th is result as normal/abnormal . PLATELET COUNT (test 191 K/UL 130-400 code = 1015) ABSOLUTE NEUTROPHILS 2.39 K/UL 1.50-7.50 (test code = 1066) ABSOLUTE LYMPHOCYTES 1.56 K/UL 1.00-4.00 (test code = 1067) ABSOLUTE MONOCYTES 0.31 K/UL 0.20-1.00 (test code = 1068) ABSOLUTE EOSINOPHILS 0.12 K/UL 0.00-0.50 (test code = 1040) ABSOLUTE BASOPHILS 0.04 K/UL 0.00-0.20 (test code = 1069) ABS IMMATURE 0.01 K/UL 0.00-0.10 GRANULOCYTES (test code = 1020) ABS NUCLEATED RBCS 0.00 K/UL 0.00-0.11 (test code = 29662) POCT URINALYSIS W SPECIFIC [id number] 20:34:00 Test Item Value Reference Range Interpretation Comments POCT U SP GRAV (test code = 1.020 mg/dl 1.005-1.025 3255) POCT PH U (test code = 3254) 5 mg/dl 5-8 POCT U LEUK EST (test code = negative Negative - Negative 3263) POCT U NIT (test code = 3262) negative Negative - Negative POCT U PROT (test code = negative Negative - Negative 3259) POCT U GLU (test code = 3256) normal Negative - Negative POCT U KETONE (test code = negative Negative - Negative 3258) POCT U UROBILI (test code = normal 0.2-1 3260) POCT U BILI (test code = negative Negative - Negative 3261) POCT U BLD (test code = 3257) negative Negative - Negative POCT U COLOR (test code = yellow 3266) POCT U APPEAR (test code = clear 3267) Lab Interpretation (test code Normal = 52215-2) [facility] URINALYSIS W SPECIFIC [id number] 20:34:00 Test Item Value Reference Range Interpretation Comments POCT U SP GRAV (test code = 1.020 mg/dl 1.005-1.025 5) POCT PH U (test code = 3254) 5 mg/dl 5-8 POCT U LEUK EST (test code = negative Negative - Negative 3) POCT U NIT (test code = 3262) negative Negative - Negative POCT U PROT (test code = negative Negative - Negative 3259) POCT U GLU (test code = 3256) normal Negative - Negative POCT U KETONE (test code = negative Negative - Negative 3258) POCT U UROBILI (test code = normal 0.2-1 3260) POCT U BILI (test code = negative Negative - Negative 3261) POCT U BLD (test code = 3257) negative Negative - Negative POCT U COLOR (test code = yellow 3266) POCT U APPEAR (test code = clear 3267) Lab Interpretation (test code Normal = 63169-6) [facility]
--- NOTE | 2022-04-28 16:22 | RAD REPORT ---
EXAM DESCRIPTION: RAD - Knee Right 2 View - 04/28/2022 4:16 pm CLINICAL HISTORY: Pain COMPARISON: Knee Right 3 View dated 05/17/2009 FINDINGS: Mild osteoarthritis is present. No acute fracture or dislocation is seen.
--- NOTE | 2022-04-28 16:24 | RAD REPORT ---
EXAM DESCRIPTION: RAD - Knee Left 2 View - 04/28/2022 4:16 pm CLINICAL HISTORY: PAIN COMPARISON: Knee Left 3 view dated 05/17/2009 FINDINGS: Moderate osteoarthritis is suspected. No acute fracture visualized.
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
[2022-04-28 17:32] VITALS: BP 132/76; TEMP 98.2; O2SAT 100
== END 2022-04-28 17:00 | disposition home or self-care (01) ==
LOC: ER 15:01
DX: S80.02XA Contusion of left knee, initial encounter (principal); S80.01XA Contusion of right knee, initial encounter
CPT/HCPCS: 99283

== ENCOUNTER 2024-07-03 13:35 | Emergency (ER) | payer OTHER ==
--- OUTSIDE RECORDS SUMMARY | 2024-07-03 13:41 | XMS REPORT | Continuity of Care Document ---
Author Name Unknown Address [address] 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 Name Role Phone Aidee Wilkinson Primary Care Physician Danyel Jones Attending Clinician Unavailable DEVANG_Brennon Attending Clinician Unavaila josh GC_GCBZW_Kaabdi_S Attending Clinician Unavaila Kiesha Rivers MD Attending Clinician KIESHA WHEATLEY Attending Clinician Unavailable Nathaniel Hernadez DO Attending Clinician [phone] Shayy Toledo MD Attending Clinician [phone] SHAYY TOLEDO Attending Clinician Unavailable Ray Altman MD Attending Clinician Doctor Unassigned, Guernsey Attending Clinician U Philomena Guzman MD Attending Clinician PHILOMENA CHEUNG Attending Clinician Unavail able Juan Caldwell MD Attending Clinician [phone] Tamie Pulliam Attending Clinician + JUAN CALDWELL Attending Clinician Unavailable TAMIE SALINAS Attending Clinician Unavail able Darwin Admitting Clinician Unavaila ble GIOVANNI_GCBZW_Geneva_Ran Admitting Clinician Unavaila ble Payers Payer Name Policy Type Policy Number Effective Date Expirati on Date Source [place]: NOVITAS [employer] [id number] 2014 00:00:00 MEDICARE NOVITAS MB [id number] 2014 00:00:00 [id number] 2014 00:00:00 [facility] Problems Condition Name Condition Details Condition Category Status Onset Date Resolution Date Last Treatment Date Treating Clinician Comments Source Primary gonarthros is, bilateral Primary Gonarthros is, Bilateral Problem Active 01-13 00:00: 00 [facility] Pain of bilateral knee regions Pain of Bilateral Knee Regions Problem Active 01-13 00:00: 00 [facility] Vaginal itching Vaginal itching Disease Active 04-25 00:00: 00 [facility] Urinary frequency Urinary frequency Disease Active 04-25 00:00: 00 [facility] Postmenopa usal atrophic vaginitis Postmenopa usal atrophic vaginitis Disease Active 04-25 00:00: 00 [facility] H/O mammogram H/O mammogram Disease Active 2016-11 00:00: 00 Overview: Formattin g of this note might be different from the original. 09/20/17- see scanned records [facility] History of thyroid disease History of thyroid disease Disease Active 05-28 00:00: 00 [facility] Post-menop ausal Post-menop ausal Disease Active 05-24 00:00: 00 [facility] H/O tubal ligation H/O tubal ligation Disease Active 05-24 00:00: 00 [facility] Depression Depression Disease Active 05-24 00:00: 00 [facility] Liver disease Liver disease Disease Active 05-24 00:00: 00 [facility] Obesity (BMI 30-39.9) Obesity (BMI 30-39.9) Disease Active 05-24 00:00: 00 Overview: Formattin g of this note might be different from the original. ICD10 Diagnosis Term Quality Assurance Monitor Body Utility [facility] Well woman exam Well woman exam Disease Active 05-24 00:00: 00 Overview: Formattin g of this note might be different from the original. ICD10 Diagnosis Term Quality Assurance Monitor Body Utility [facility] [id number] Abnormal mammogram Problem Common [facility] [id number] Sleep apnea in adult Problem [facility] Chronic hepatitis C Chronic hepatitis C Problem [facility] Vitamin D deficiency Vitamin D deficiency Problem [facility] Mixed hyperlipid emia Hyperlipid emia, mixed Problem [facility] Atopic dermatitis Atopic dermatitis Problem [facility] [id number] Eczema, unspecifie d type Problem [facility] [id number] Gastroesop hageal reflux disease without esophagiti s Problem [facility] Laboratory test result abnormal Liver enzyme elevation Problem [facility] Major depressive disorder, single episode, severe with psychotic features Depression , psychotic Problem [facility] Hiatal hernia Hiatal hernia Problem [facility] [id number] Generalize d anxiety disorder Problem [facility] Moderate major depression , single episode Major depressive disorder, single episode, moderate Problem [facility] [id number] Cirrhosis of liver without ascites, unspecifie d hepatic cirrhosis type Problem [facility] [id number] Depression with anxiety Problem [facility] Gastroesop hageal reflux disease GERD (gastroeso phageal reflux disease) Problem [facility] [id number] Bipolar affective disorder, currently depressed, moderate Problem [facility] Liver cyst Liver cyst Problem Co mmon [facility] [id number] Elevated LFTs Problem [facility] Decreased hearing Decreased hearing Problem [facility] Hyperglyce guille Hyperglyce guille Problem [facility] [id number] Irritant contact dermatitis , unspecifie d trigger Problem [facility] [id number] Overactive bladder Problem [facility] [id number] Benzodiaze pine dependence , continuous Problem [facility] Allergies, Adverse Reactions, Alerts Allergy Name Allergy Type Status Severity Reaction(s) Onset Date Inactive Date Treating Clinician Comments Source NO KNOWN ALLERGIE S [facility] Active rash [facility] Social History Social Habit Start Date Stop Date Quantity Comments Source History of Tobacco Use [facility] Sex Assigned At [facility] Exposure to SARS-CoV-2 (event) 2022-07-11 00:00:00 2022-07-21 14:42:[address] [facility] [place] [place] Tobacco use and exposure 2022-07-21 00:00:00 2022-07-21 00:00:00 Smokeless tobacco non-user [facility] [place] [place] Alcohol intake 2022-07-21 00:00:00 2022-07-21 00:00:00 Current non-drinker of alcohol (finding) [facility] [place] [place] Smoking Status Start Date Stop Date Source Never Smoker [facility] Medications Ordered Medication Name Filled Medication Name Start Date Stop Date Current Medication? Ordering Clinician Indication Dosage Frequency Signature (SIG) Comments Components Source topiramate 25 mg tablet 06-15 00:00: 00 Yes 1mg Nicholas Chisholm Lomaira 8 mg tablet 06-15 00:00: 00 Yes 5mg Nicholas Susi Phan Qsymia 3.75 mg-23 mg capsule, extended release 2024-0 7-25 00:00: 00 Yes 1mg Nicholas Chisholm benztropine 0.5 mg tablet 0 7-23 00:00: 00 Yes mg Nicholas Chisholm omeprazole 40 mg capsule,del ayed release 0 -16 00:00: 00 Yes mg Nicholas Chisholm hydroxyzine HCl 25 mg tablet 2023-0 7-16 00:00: 00 Yes mg Nicholas Chisholm triamcinolo ne acetonide 0.1 % topical ointment 0 -16 00:00: 00 Yes % Nicholas Chisholm ziprasidone 40 mg capsule 0 7-05 00:00: 00 Yes mg Nicholas Chisholm ZIPRASIDONE 60MG 0 4-12 00:00: 00 Yes Nicholas Chisholm meloxicam 15 mg tablet 0 4- 00:00: 00 Yes mg Nicholas Chisholm MELOXICAM 15MG 0 2-22 00:00: 00 Yes Nicholas Chisholm TRIAMCINOLO N 0.1% OIN 0 2-21 00:00: 00 Yes Nicholas Chisholm ZIPRASIDONE 40MG 2023-0 2-18 00:00: 00 Yes Nicholas Chisholm ZIPRASIDONE 40MG 0 1-24 00:00: 00 Yes Nicholas Chisholm TRIAMCINOLO N 0.1% OIN 2022-11 2-05 00:00: 00 Yes Nicholas Chisholm HYDROXYZ HCL 25MG 2022-11 2-05 00:00: 00 Yes Nicholas Chisholm TAKE 1 CAPSULE BY MOUTH THREE TIMES DAILY FOR 14 DAYS 2022-11 1-09 00:00: 00 Yes Nicholas Chisholm METHYLPRED 4MG 2022-11 1-09 00:00: 00 Yes Nicholas Chisholm HYDROXYZ HCL 25MG 1 0-24 00:00: 00 Yes Nicholas Chisholm TAKE 1 CAPSULE BY MOUTH EVERY DAY 1 0-24 00:00: 00 Yes Nicholas Chisholm BENZTROPINE 0.5MG 0 9-27 00:00: 00 Yes 500 Nicholas Chisholm TAKE 1 TABLET 3 TIMES DAILY. 0 8- 00:00: 00 05-08 00:00 :00 No 1 Nicholas Chisholm CHLORHEX GLU 0.12% ALESIA 2023-0 7-25 00:00: 00 Yes Nicholas Chisholm TRIAMCINOLO N 0.1% OIN 2023-0 7-19 00:00: 00 Yes Nicholas Chisholm TAKE 1 TABLET BY MOUTH EVERY 12 HOURS NEEDED FOR ITCHING 2023-0 7-19 00:00: 00 Yes Nicholsa Chisholm BENZTROPINE 0.5MG 2023-0 7-13 00:00: 00 Yes 500 Nicholas Chisholm TAKE 1 CAPSULE BY MOUTH IN THE MORNING 3-0 6-26 00:00: 00 Yes Nicholas Chisholm ZIPRASIDONE 60MG 2023-0 6-13 00:00: 00 Yes Nicholas Chisholm OMEPRAZOLE 40MG 2023-0 6-13 00:00: 00 Yes [id number] Nicholas Chisholm OMEPRAZOLE 40MG 2023-0 5-24 00:00: 00 Yes [id number] Nicholas Chisholm CHLORHEX GLU 0.12% ALESIA 3-0 5-19 00:00: 00 Yes Nicholas Chisholm ZIPRASIDONE 40MG 2023-0 5-18 00:00: 00 Yes Nicholas Chisholm TRIAMCINOLO N 0.1% OIN 2023-0 5-15 00:00: 00 Yes Nicholas Chisholm HYDROXYZ HCL 25MG 3-0 4-29 00:00: 00 Yes Nicholas Chisholm BENZTROPINE 0.5MG 2023-0 4-03 00:00: 00 Yes Nicholas Chisholm TAKE 2 CAPSULES BY MOUTH AT BEDTIME WITH FOOD 2023-0 4-03 00:00: 00 Yes Nicholas Chisholm ZIPRASIDONE 40MG 2023-0 4-03 00:00: 00 Yes [id number] Nicholas Chisholm TAKE 1 TABLET BY MOUTH EVERY 12 HOURS NEEDED FOR ITCHING 2023-0 3-21 00:00: 00 Yes Nicholas Chisholm TAKE 1 CAPSULE BY MOUTH EVERY DAY 2023-0 2-27 00:00: 00 Yes Nicholas Chisholm TRIAMCINOLO N 0.1% OIN 2023-0 2-27 00:00: 00 Yes Nicholas Chisholm CHLORHEX GLU 0.12% ALESIA 2023-0 2-23 00:00: 00 Yes Nicholas Chisholm ZIPRASIDONE 40MG 2023-0 2-10 00:00: 00 Yes [id number] Nicholas Chisholm TAKE 1 TABLET BY MOUTH AT BEDTIME 3-0 1-03 00:00: 00 Yes Nicholas Chisholm ZIPRASIDONE 40MG 3-0 1-03 00:00: 00 Yes [id number] Nicholas Chisholm ZIPRASIDONE 60MG 2021-1 2-22 00:00: 00 Yes [id number] Nicholas Chisholm HYDROXYZ HCL 25MG 2021-1 2-21 00:00: 00 Yes [id number] Nicholas Chisholm TAKE 1 CAPSULE BY MOUTH EVERY DAY 2021-1 2- 00:00: 00 Yes 40 Nicholas Chisholm TRIAMCINOLO NE ACETONIDE 0.1% OIN 2021-1 2- 00:00: 00 Yes Nicholas Chisholm CHLORHEXIDI NE GLUCONATE 0.12% ALESIA 2021-11 2- 00:00: 00 Yes Nicholas Chisholm ZIPRASIDONE HCL 40MG 2021-1 2- 00:00: 00 Yes 40 Nicholas Chisholm APPLY TOPICALLY TO THE AFFECTED AREA TWICE DAILY 2021-1 2- 00:00: 00 Yes Nicholas Chisholm SUPREP BOWEL PREP KIT PREP KIT ALESIA 2021-1 - 00:00: 00 Yes Nicholas Chisholm APPLY 2 GRAMS TOPICALLY TO THE AFFECTED JOINTS TWICE DAILY NEEDED 2021-1 2-13 00:00: 00 - 00:00 :00 No Nicholas Chisholm ZIPRASIDONE 60MG 2021-1 1-28 00:00: 00 Yes [id number] Nicholas Chisholm CHLORHEX GLU 0.12% ALESIA 2021- 1-07 00:00: 00 Yes 120 Nicholas Chisholm DICLOFENAC 1% GEL 2021-1 0-13 00:00: 00 Yes 1000 Nicholas Cihsholm APPLY 2 GRAMS TOPICALLY TO THE AFFECTED JOINTS TWICE DAILY NEEDED 2021-1 0-11 00:00: 00 Yes Nicholas Chisholm ZIPRASIDONE 40MG 2-1 0-10 00:00: 00 Yes [id number] Nicholas Chisholm TAKE 1 TABLET BY MOUTH TWICE DAILY NEEDED FOR ANXIETY OR SLEEP 2021-1 0-10 00:00: 00 Yes Nicholas Chisholm ZIPRASIDONE 60MG CAP 2021-1 0-05 00:00: 00 Yes Nicholas Chisholm OMEPRAZOLE 40MG 2-0 8-23 00:00: 00 Yes [id number] Nicholas Chisholm HYDROXYZINE HYDROCHLORI DE 25MG 2-0 8-23 00:00: 00 Yes [id number] Nicholas Chisholm &lt 2022-0 8-15 00:00: 00 Yes 60 Nicholas Chisholm TAKE 2 CAPSULES BY MOUTH AT BEDTIME WITH FOOD 2021-0 8-12 00:00: 00 Yes Nicholas Chisholm TAKE 1 TABLET BY MOUTH AT BEDTIME 2-0 8-09 00:00: 00 Yes Nicholas Chisholm &lt 2022-0 8-08 00:00: 00 Yes 40 Nicholas Chisholm ZIPRASIDONE HCL 40MG 2-0 8-08 00:00: 00 Yes [id number] Nicholas Chisholm &lt 2022-0 7-09 00:00: 00 Yes 60 Nicholas Chisholm &lt 2022-0 7-09 00:00: 00 Yes 40 Nicholas Chisholm &lt 2022-0 7-09 00:00: 00 Yes 25 Nicholas Chisholm triamcinolo ne acetonide 0.1 % topical cream 2021-0 6-21 00:00: 00 Yes 1% Nicholas Chisholm diclofenac 1 % topical gel 2021-0 6-21 00:00: 00 Yes 1% Nicholas Chisholm TAKE 1 TABLET BY MOUTH AT BEDTIME 2021-0 6-21 00:00: 00 Yes Nicholas Chisholm &lt 2022-0 6-21 00:00: 00 Yes Nicholas Chisholm TAKE 1 TABLET BY MOUTH TWICE DAILY NEEDED FOR ANXIETY OR SLEEP 2021-0 4-25 00:00: 00 Yes Nicholas Chisholm TAKE 1 TABLET BY MOUTH AT BEDTIME 2021-0 4-25 00:00: 00 Yes Nicholas Chisholm Dose Unknown 2021-0 3-12 00:00: 00 Yes Nicholas Chisholm Dose Unknown 2021-0 3-11 00:00: 00 Yes Nicholas Chisholm Dose Unknown 2021-0 3-11 00:00: 00 Yes Nicholas Chisholm triamcinolo ne acetonide 0.1 % topical cream 2021-0 3-10 00:00: 00 Yes 1% Nicholas Chisholm Dose Unknown 2021-0 3-10 00:00: 00 Yes Nicholas Chisholm Dose Unknown 2021-0 3-10 00:00: 00 Yes Nicholas Chisholm Fesoterodin e (TOVIAZ) 4 mg tablet 12-23 00:00: 00 Yes [id number] 4mg Take 1 tablet by mouth daily. [facility] triamcinolo ne acetonide 0.1 % cream 12-05 00:00: 00 Yes [id number] Use BID on affected areas of body. Do not use on face. [facility] omeprazole 40 mg capsule,del ayed release 04-22 00:00: 00 Yes 1mg Nicholas Chisholm Dose Unknown 11-22 00:00: 00 Yes Nicholas Chisholm LORazepam 0.5 mg tablet 02-13 00:00: 00 Yes TK 1 T PO Q 8 H PRF ANXIETY [facility] benzonatate 200 mg capsule TAKE 1 CAPSULE BY MOUTH THREE TIMES DAILY FOR 14 DAYS benzonatate 200 mg capsule TAKE 1 CAPSULE BY MOUTH THREE TIMES DAILY FOR 14 DAYS No benzonatat e 200 mg capsule TAKE 1 CAPSULE BY MOUTH THREE TIMES DAILY FOR 14 DAYS [facility] benztropine 0.5 mg tablet TAKE 1 TABLET BY MOUTH AT BEDTIME benztropine 0.5 mg tablet TAKE 1 TABLET BY MOUTH AT BEDTIME No benztropin e 0.5 mg tablet TAKE 1 TABLET BY MOUTH AT BEDTIME [facility] chlorhexidi ne gluconate 0.12 % mouthwash chlorhexidi ne gluconate 0.12 % mouthwash No chlorhexid ine gluconate 0.12 % mouthwash [facility] hydroxyzine HCl 25 mg tablet TAKE 1 TABLET BY MOUTH TWICE DAILY NEEDED FOR ANXIETY OR SLEEP hydroxyzine HCl 25 mg tablet TAKE 1 TABLET BY MOUTH TWICE DAILY NEEDED FOR ANXIETY OR SLEEP No hydroxyzin e HCl 25 mg tablet TAKE 1 TABLET BY MOUTH TWICE DAILY NEEDED FOR ANXIETY OR SLEEP [facility] methylpredn isolone 4 mg tablets in a dose pack FOLLOW PACKAGE DIRECTIONS methylpredn isolone 4 mg tablets in a dose pack FOLLOW PACKAGE DIRECTIONS No methylpred nisolone 4 mg tablets in a dose pack FOLLOW PACKAGE DIRECTIONS [facility] Mobic 15 mg tablet Take 1 tablet every day by oral route with meal(s) for 30 days. Mobic 15 mg tablet Take 1 tablet every day by oral route with meal(s) for 30 days. No 1 Q1D Mobic 15 mg tablet Take 1 tablet every day by oral route with meal(s) for 30 days. [facility] omeprazole 40 mg capsule,del ayed release TAKE 1 CAPSULE BY MOUTH EVERY DAY omeprazole 40 mg capsule,del ayed release TAKE 1 CAPSULE BY MOUTH EVERY DAY No omeprazole 40 mg capsule,de layed release TAKE 1 CAPSULE BY MOUTH EVERY DAY [facility] triamcinolo ne acetonide 0.1 % topical ointment APPLY TOPICALLY TO THE AFFECTED AREA TWICE DAILY triamcinolo ne acetonide 0.1 % topical ointment APPLY TOPICALLY TO THE AFFECTED AREA TWICE DAILY No triamcinol one acetonide 0.1 % topical ointment APPLY TOPICALLY TO THE AFFECTED AREA TWICE DAILY [facility] valacyclovi r 1 gram tablet valacyclovi r 1 gram tablet No valacyclov ir 1 gram tablet [facility] ziprasidone 20 mg capsule TAKE 1 CAPSULE BY MOUTH IN THE MORNING ziprasidone 20 mg capsule TAKE 1 CAPSULE BY MOUTH IN THE MORNING No ziprasidon e 20 mg capsule TAKE 1 CAPSULE BY MOUTH IN THE MORNING [facility] ziprasidone 40 mg capsule TAKE 1 CAPSULE BY MOUTH IN THE MORNING WITH FOOD ziprasidone 40 mg capsule TAKE 1 CAPSULE BY MOUTH IN THE MORNING WITH FOOD No ziprasidon e 40 mg capsule TAKE 1 CAPSULE BY MOUTH IN THE MORNING WITH FOOD [facility] ziprasidone 60 mg capsule TAKE 2 CAPSULES BY MOUTH AT BEDTIME WITH FOOD ziprasidone 60 mg capsule TAKE 2 CAPSULES BY MOUTH AT BEDTIME WITH FOOD No ziprasidon e 60 mg capsule TAKE 2 CAPSULES BY MOUTH AT BEDTIME WITH FOOD [facility] hydrOXYzine HCl 25 MG hydrOXYzine HCl 25 MG No 1{table t_as_ne eded} hydrOXYzin e HCl 25 MG Mupirocin 2 % Mupirocin 2 % No 1{appli cation_ to_affe cted_ar ea} TID Mupirocin 2 % Fluocinonid e 0.05 % Fluocinonid e 0.05 % No QD Fluocinoni de 0.05 % Omeprazole 40 MG Omeprazole 40 MG No 1{capsu le} QD Omeprazole 40 MG Geodon 60 MG Geodon 60 MG No 1{capsu le_with _food} BID Geodon 60 MG Triamcinolo ne Acetonide 0.1 % Triamcinolo ne Acetonide 0.1 % No 1{appli cation} BID Triamcinol one Acetonide 0.1 % ZyrTEC Allergy 10 MG ZyrTEC Allergy 10 MG No 1{table t} QD ZyrTEC Allergy 10 MG Hibiclens 4 % Hibiclens 4 % No 1{ml} QD Hibiclens 4 % Immunizations Ordered Immunization Name Filled Immunization Name Date Status Comments Source SHINGRIX VACCINE SHINGRIX VACCINE 2022-02-02 00:00:00 Completed Nicholas Chisholm Tdap Tdap 2022-02-02 00:00:00 Rex Chisholm Vital Signs Vital Name Observation Time Observation Value Comments S bere height 2024-06-06 09:10:00 62 [in_i] Commo n [facility] weight 2024-06-06 09:10:00 156.6 [lb_av] Co [facility] temperature 2024-06-06 09:10:00 96.4 [degF] Com [facility] bmi 2024-06-06 09:10:00 28.64 kg/m2 Comm on [facility] oximetry 2024-06-06 09:10:00 96 % Commo n [facility] blood pressure systolic 2024-06-06 09:10:00 132 mm[Hg] [facility] pressure diastolic 2024-06-06 09:10:00 70 mm[Hg] Common [facility] height 2024-06-06 09:10:00 62 [in_i] Commo n [facility] weight 2024-06-06 09:10:00 156.6 [facility]lb_av[facility] 09:10:00 96.4 [degF] Com [facility] bmi 2024-06-06 09:10:00 28.64 kg/m2 Comm on [facility] oximetry 2024-06-06 09:10:00 96 % Commo n [facility] blood pressure systolic 2024-06-06 09:10:00 132 mm[Hg] Common [facility] blood pressure diastolic 2024-06-06 09:10:00 70 mm[Hg] Common [facility] height 2024-02-03 16:10:00 62 [in_i] Commo n [facility] weight 2024-02-03 16:10:00 154.0 [lb_av] Co mmon [facility] temperature 2024-02-03 16:10:00 97.5 [degF] Com mon [facility] bmi 2024-02-03 16:10:00 28.16 kg/m2 Comm on [facility] oximetry 2024-02-03 16:10:00 96 % Commo n [facility] respiratory rate 2024-02-03 16:10:00 17 /min [facility] blood pressure systolic 2024-02-03 16:10:00 130 mm[Hg] Common [facility] blood pressure diastolic 2024-02-03 16:10:00 82 mm[Hg] [facility] Body Weight 2024-01-13 00:00:00 148 [lb_av] [facility] BMI (Body Mass Index) 2024-01-13 00:00:00 30.9 kg/m2 [facility] Height 2024-01-13 00:00:00 58 [in_i] [facility] Height 2024-01-13 00:00:00 58 [in_i] [facility] Body Weight 2024-01-13 00:00:00 148 [lb_av] [facility] BMI (Body Mass Index) 2024-01-13 00:00:00 30.9 kg/m2 [facility] height 2024-01-12 10:20:00 62 [in_i] Commo n [facility] weight 2024-01-12 10:20:00 151.0 [lb_av] Co mmon [facility] temperature 2024-01-12 10:20:00 97.7 [degF] Com [facility] bmi 2024-01-12 10:20:00 27.62 kg/m2 Comm on [facility] oximetry 2024-01-12 10:20:00 97 % Commo n [facility] respiratory rate 2024-01-12 10:20:00 18 /min Common [facility] blood pressure systolic 2024-01-12 10:20:00 118 mm[Hg] Common [facility] blood pressure diastolic 2024-01-12 10:20:00 67 mm[Hg] Common [facility] height 2024-01-12 10:20:00 62 [in_i] Commo n [facility] weight 2024-01-12 10:20:00 151.0 [lb_av] Co mmon [facility] temperature 2024-01-12 10:20:00 97.7 [degF] Com [facility] bmi 2024-01-12 10:20:00 27.62 kg/m2 Comm on [facility] oximetry 2024-01-12 10:20:00 97 % Commo n [facility] respiratory rate 2024-01-12 10:20:00 18 /min Common [facility] blood pressure systolic 2024-01-12 10:20:00 118 mm[Hg] Common [facility] blood pressure diastolic 2024-01-12 10:20:00 67 mm[Hg] Common [facility] height 2023-09-30 10:40:00 62 [in_i] Commo n [facility] weight 2023-09-30 10:40:00 148.4 [lb_av] Co mmon [facility] bmi 2023-09-30 10:40:00 27.14 kg/m2 Comm on [facility] height 2023-09-14 14:30:00 62 [in_i] Commo n [facility] weight 2023-09-14 14:30:00 148.4 [lb_av] Co mmon [facility] temperature 2023-09-14 14:30:00 97.2 [degF] Com mon [facility] bmi 2023-09-14 14:30:00 27.14 kg/m2 Comm on [facility] oximetry 2023-09-14 14:30:00 94 % Commo n [facility] respiratory rate 2023-09-14 14:30:00 16 /min Common [facility] blood pressure systolic 2023-09-14 14:30:00 138 mm[Hg] [facility] blood pressure diastolic 2023-09-14 14:30:00 74 mm[Hg] Common [facility] height 2023-06-09 09:40:00 62 [in_i] Commo n [facility] weight 2023-06-09 09:40:00 149.0 [lb_av] Co on [facility] temperature 2023-06-09 09:40:00 96.4 [degF] Com mon [facility] bmi 2023-06-09 09:40:00 27.25 kg/m2 Comm on [facility] oximetry 2023-06-09 09:40:00 97 % Commo n [facility] respiratory rate 2023-06-09 09:40:00 17 /min Common [facility] blood pressure systolic 2023-06-09 09:40:00 131 mm[Hg] [facility] blood pressure diastolic 2023-06-09 09:40:00 68 mm[Hg] [facility] height 2023-06-09 09:40:00 62 [in_i] Commo n [facility] weight 2023-06-09 09:40:00 149.0 [lb_av] Co mmon [facility] temperature 2023-06-09 09:40:00 96.4 [degF] Com [facility] bmi 2023-06-09 09:40:00 27.25 kg/m2 Comm on [facility] oximetry 2023-06-09 09:40:00 97 % Commo n [facility] respiratory rate 2023-06-09 09:40:00 17 /min Common [facility] blood pressure systolic 2023-06-09 09:40:00 131 mm[Hg] Common [facility] blood pressure diastolic 2023-06-09 09:40:00 68 mm[Hg] Common [facility] height 2023-01-18 10:50:00 62 [in_i] Commo n [facility] weight 2023-01-18 10:50:00 150.2 [lb_av] Co mmon [facility] temperature 2023-01-18 10:50:00 97.2 [degF] Com [facility] bmi 2023-01-18 10:50:00 27.47 kg/m2 Comm on [facility] oximetry 2023-01-18 10:50:00 96 % Commo n [facility] respiratory rate 2023-01-18 10:50:00 17 /min Common [facility] blood pressure systolic 2023-01-18 10:50:00 119 mm[Hg] Common [facility] blood pressure diastolic 2023-01-18 10:50:00 67 mm[Hg] Common [facility] height 2022-10-14 10:40:00 62 [in_i] Commo n [facility] weight 2022-10-14 10:40:00 152.5 [lb_av] Co mmon [facility] temperature 2022-10-14 10:40:00 97.2 [degF] Com mon [facility] bmi 2022-10-14 10:40:00 27.89 kg/m2 Comm on [facility] oximetry 2022-10-14 10:40:00 97 % Commo n [facility] respiratory rate 2022-10-14 10:40:00 17 /min Common [facility] blood pressure systolic 2022-10-14 10:40:00 131 mm[Hg] [facility] blood pressure diastolic 2022-10-14 10:40:00 74 mm[Hg] Common [facility] Respiratory rate 2022-07-21 20:12:00 18 /min [facility] [place] [place] Body height 2022-07-21 20:12:00 152.4 cm [facility] Body weight 2022-07-21 20:12:00 70.035 kg [facility] BMI 2022-07-21 20:12:00 30.15 kg/m2 [facility] height 2022-07-14 10:30:00 62 [in_i] Commo n [facility] weight 2022-07-14 10:30:00 152 [lb_av] Comm on [facility] temperature 2022-07-14 10:30:00 97.9 [degF] Com mon [facility] bmi 2022-07-14 10:30:00 27.8 kg/m2 Commo n [facility] oximetry 2022-07-14 10:30:00 97 % Commo n [facility] respiratory rate 2022-07-14 10:30:00 16 /min Common [facility] blood pressure systolic 2022-07-14 10:30:00 122 mm[Hg] Common [facility] blood pressure diastolic 2022-07-14 10:30:00 73 mm[Hg] Common [facility] height 2022-06-10 10:30:00 62.5 [in_i] Comm on [facility] weight 2022-06-10 10:30:00 152.8 [lb_av] Co on [facility] temperature 2022-06-10 10:30:00 98.7 [degF] Com [facility] bmi 2022-06-10 10:30:00 27.5 kg/m2 Commo n [facility] oximetry 2022-06-10 10:30:00 96 % Commo n [facility] respiratory rate 2022-06-10 10:30:00 17 /min [facility] blood pressure systolic 2022-06-10 10:30:00 117 mm[Hg] Common [facility] blood pressure diastolic 2022-06-10 10:30:00 70 mm[Hg] Common [facility] height 2022-04-13 13:20:00 62.5 [in_i] Comm on [facility] weight 2022-04-13 13:20:00 151.8 [lb_av] Co on [facility] temperature 2022-04-13 13:20:00 97.4 [degF] Com [facility] bmi 2022-04-13 13:20:00 27.32 kg/m2 Comm on [facility] oximetry 2022-04-13 13:20:00 97 % Commo n [facility] respiratory rate 2022-04-13 13:20:00 17 /min Common [facility] blood pressure systolic 2022-04-13 13:20:00 127 mm[Hg] Common [facility] blood pressure diastolic 2022-04-13 13:20:00 63 mm[Hg] Common [facility] height 2021-11-27 14:00:00 62.5 [in_i] Comm on [facility] weight 2021-11-27 14:00:00 151.3 [lb_av] Co mmon [facility] temperature 2021-11-27 14:00:00 97.2 [degF] Com [facility] bmi 2021-11-27 14:00:00 27.23 kg/m2 Comm on [facility] oximetry 2021-11-27 14:00:00 98 % Commo n [facility] respiratory rate 2021-11-27 14:00:00 17 /min Common [facility] blood pressure systolic 2021-11-27 14:00:00 126 mm[Hg] Common [facility] blood pressure diastolic 2021-11-27 14:00:00 73 mm[Hg] [facility] height 2021-08-27 11:20:00 62.5 [in_i] Comm on [facility] weight 2021-08-27 11:20:00 154.1 [lb_av] Co on [facility] temperature 2021-08-27 11:20:00 98.0 [degF] Com [facility] bmi 2021-08-27 11:20:00 27.73 kg/m2 Comm on [facility] oximetry 2021-08-27 11:20:00 95 % Commo n [facility] respiratory rate 2021-08-27 11:20:00 17 /min [facility] blood pressure systolic 2021-08-27 11:20:00 123 mm[Hg] Common [facility] blood pressure diastolic 2021-08-27 11:20:00 62 mm[Hg] Common [facility] BP Systolic 2024-06-26 08:37:00 113 mm[Hg] Stas tompkins Susi Phan BP Diastolic 2024-06-26 08:37:00 71 mm[Hg] Kg jose Susi Phan Weight Measured 2024-06-26 08:37:00 156.60 pounds Nicholas Chisholm Height Measured 2024-06-26 08:37:00 62.00 inches Nicholas F Pahn Body Temperature 2024-06-26 08:37:00 97.30 degrees Nicholas F Phan Heart Rate 2024-06-26 08:37:00 85.00 /min Olya en F Phan Respiratory Rate 2024-06-26 08:37:00 18.00 /min Nicholas F Phan BP Systolic 2024-06-15 17:53:00 137 mm[Hg] Step hen F Phan BP Diastolic 2024-06-15 17:53:00 80 mm[Hg] Kg phen F Phan Weight Measured 2024-06-15 17:53:00 156.60 pounds Nicholas F Phan Height Measured 2024-06-15 17:53:00 62.00 inches Nicholas F Phan Body Temperature 2024-06-15 17:53:00 98.20 degrees Nicholas F Phan Heart Rate 2024-06-15 17:53:00 89.00 /min Olya en F Phan Respiratory Rate 2024-06-15 17:53:00 18.00 /min Nicholas F Phan BP Systolic 2024-01-27 10:06:00 129 mm[Hg] Step hen F Phan BP Diastolic 2024-01-27 10:06:00 86 mm[Hg] Kg phen F Phan Weight Measured 2024-01-27 10:06:00 154.60 pounds Nicholas F Phan Height Measured 2024-01-27 10:06:00 62.00 inches Nicholas F Phan Body Temperature 2024-01-27 10:06:00 98.10 degrees Nicholas F Phan Heart Rate 2024-01-27 10:06:00 93.00 /min Olya en F Phan Respiratory Rate 2024-01-27 10:06:00 17.00 /min Nicholas F Phan BP Systolic 2023-07-14 11:00:00 118 mm[Hg] Step hen F Phan BP Diastolic 2023-07-14 11:00:00 78 mm[Hg] Kg phen F Phan Weight Measured 2023-07-14 11:00:00 149.60 pounds Nicholas F Phan Height Measured 2023-07-14 11:00:00 62.00 inches Nicholas F Phan Body Temperature 2023-07-14 11:00:00 98.20 degrees Nicholas F Phan Heart Rate 2023-07-14 11:00:00 90.00 /min Olya en F Phan Respiratory Rate 2023-07-14 11:00:00 18.00 /min Nicholas F Phan BP Systolic 2022-05-12 09:45:00 133 mm[Hg] Step hen F Phan BP Diastolic 2022-05-12 09:45:00 83 mm[Hg] Kg phen F Phan Weight Measured 2022-05-12 09:45:00 152.60 pounds Nicholas F Phan Height Measured 2022-05-12 09:45:00 62.00 inches Nicholas F Phan Body Temperature 2022-05-12 09:45:00 97.40 degrees Nciholas F Phan Heart Rate 2022-05-12 09:45:00 96.00 /min Olya en F Phan Respiratory Rate 2022-05-12 09:45:00 Nicholas F Phan BP Systolic 2022-02-02 10:23:00 114 mm[Hg] Step hen F Phan BP Diastolic 2022-02-02 10:23:00 72 mm[Hg] Kg phen F Phan Weight Measured 2022-02-02 10:23:00 155.60 pounds Nicholas F Phan Height Measured 2022-02-02 10:23:00 62.00 inches Nicholas F Phan Body Temperature 2022-02-02 10:23:00 98.10 degrees Nicholas F Phan Heart Rate 2022-02-02 10:23:00 80.00 /min Olya en F Phan Respiratory Rate 2022-02-02 10:23:00 Nicholas F Phan BP Systolic 2022-01-29 09:37:00 125 mm[Hg] Step hen F Phan BP Diastolic 2022-01-29 09:37:00 82 mm[Hg] Kg phen F Phan Weight Measured 2022-01-29 09:37:00 154.60 pounds Nicholas F Phan Height Measured 2022-01-29 09:37:00 62.00 inches Nicholas F Phan Body Temperature 2022-01-29 09:37:00 97.50 degrees Nicholas F Phan Heart Rate 2022-01-29 09:37:00 90.00 /min Olya en F Phan Respiratory Rate 2022-01-29 09:37:00 Nicholas F Phan BP Systolic 2021-06-27 14:34:00 116 mm[Hg] Step hen F Phan BP Diastolic 2021-06-27 14:34:00 75 mm[Hg] Kg phen Susi Chisholm Weight Measured 2021-06-27 14:34:00 151.00 pounds Nicholas Chisholm Height Measured 2021-06-27 14:34:00 62.00 inches Nicholas Susi Chisholm Body Temperature 2021-06-27 14:34:00 97.90 degrees Nicholas Susi Chisholm Heart Rate 2021-06-27 14:34:00 89.00 /min Olya en F Phan Respiratory Rate 2021-06-27 14:34:00 Nicholas Susi Chisholm BP Systolic 2020-06-24 11:24:00 144 mm[Hg] Step hen F Phan BP Diastolic 2020-06-24 11:24:00 81 mm[Hg] Kg phen Susi Chisholm Weight Measured 2020-06-24 11:24:00 155.00 pounds Nicholas Chisholm Height Measured 2020-06-24 11:24:00 62.00 inches Nicholas Chisholm Body Temperature 2020-06-24 11:24:00 98.60 degrees Nicholas Chisholm Heart Rate 2020-06-24 11:24:00 97.00 /min Olya en F Phan Respiratory Rate 2020-06-24 11:24:00 16.00 /min Nicholas Chisholm Procedures Procedure Date / Time Performed Performing Clinicia n Source XR, knee, 1 or 2 view 2024-01-13 00:00:00 [facility] Encounters Start Date/Time End Date/Time Encounter Type Admission Type Attending [facility] Care Facility Care Department Encounter ID Source 2024-06-02 08:54:00 [facility] [id number] [facility] 2024-01-10 11:29:00 [facility] [id number] [facility] 2023-09-30 08:38:00 [facility] [id number] [facility] 2023-06-23 12:01:00 [facility] [id number] [facility] 2023-06-07 07:43:00 Outpatient Jones, Danyel STLMLC ST[facility] [id number] [facility] 2023-01-14 08:26:00 Outpatient Jones, Danyel STLMLC STLMLC [id number] [facility] 2022-10-13 08:19:00 Outpatient Jones, Danyel STLMLC STLMLC [id number] [facility] 2022-10-02 08:24:00 Outpatient Jones, Danyel STLMLC STLMLC [id number] [facility] [place] [place] [facility] 2022-04-13 12:59:04 Outpatient Jones, Danyel STLMLC STLMLC [id number] [facility] 2022-04-09 16:18:00 Outpatient Jones, Danyel STLMLC STLMLC [id number] [facility] 2021-12-17 14:32:00 Outpatient Jones, Danyel STLMLC STLMLC [id number] [facility] 2021-12-17 14:31:33 Outpatient Jones, Danyel STLMLC STLMLC [id number] [facility] 2021-12-17 13:45:17 Outpatient Jones, Danyel STLMLC STLMLC [id number] [facility] 2021-12-17 12:48:47 Outpatient Jones, Danyel STLMLC STLMLC [id number] [facility] 2021-12-17 12:48:29 Outpatient Jones, Danyel STLMLC STLMLC [id number] [facility] 2021-12-17 12:18:24 Outpatient Jones, Danyel STLMLC STLMLC [id number] [facility] 2021-12-17 11:44:15 Outpatient Jones, Danyel STLMLC STLMLC [id number] [facility] 2021-12-17 11:25:09 Out[facility] [id number] [facility] 2021-12-17 11:24:16 Outpatient JonesDanyel tamez [facility] [id number] [facility] 2021-12-17 11:16:21 Outpatient JonesDanyel tamez [facility] [id number] [facility] 2024-07-03 08:32:55 2024-07-03 08:32:55 Outpatient [facility] [id number] Nicholas Chisholm 2024-06-27 13:00:19 2024-06-27 13:00:19 Outpatient [facility] [id number] Nicholas Chisholm 2024-06-26 08:30:10 2024-06-26 08:30:10 Outpatient [facility] [id number] Nicholas Chisholm 2024-06-26 00:00:00 2024-06-26 00:00:00 Outpatient Visit [facility] [id number] Nicholas Chisholm 2024-06-15 17:46:51 2024-06-15 17:46:51 Outpatient [facility] [id number] Nicholas Chisholm 2024-06-15 00:00:00 2024-06-15 00:00:00 Outpatient Visit [facility] [id number] Nicholas Chisholm 2024-06-06 00:00:00 2024-06-06 00:00:00 OFFICE VISIT ESTAB PT LEVEL 4 [facility] [id number] [facility] 2024-06-06 00:00:00 2024-06-06 00:00:00 SUB ANNUAL [facility] [id number] [facility] 2024-05-22 13:38:40 2024-05-22 13:38:40 Outpatient [facility] [id number] Nicholas Chisholm 2024-04-18 09:55:33 2024-04-18 09:55:33 Outpatient [facility] [id number] Nicholas Chisholm 2024-04-13 00:00:00 2024-04-13 00:00:00 (TEL) STLMLC STLC [id number] [facility] 2024-03-09 00:00:00 2024-03-09 00:00:00 (TEL) STLMLC STLMLC [id number] [facility] 2024-03-07 14:21:40 2024-03-07 14:21:40 Outpatient [facility] [id number] Nicholas Chisholm 2024-02-22 00:00:00 2024-02-22 00:00:00 Joey Medrano MD: [address] [place] [id number] , Ph. [phone] Darryl Mack [facility] [place] [facility] [place] [id number] [facility] 2024-02-03 00:00:00 2024-02-03 00:00:00 OFFICE VISIT ESTAB PT LEVEL 3 [facility] [id number] [facility] 2024-02-01 14:26:12 2024-02-01 14:26:12 Outpatient [facility] [id number] Nicholas Goldman Phan 2024-02-01 00:00:00 2024-02-01 00:00:00 (WEB) STLC STLC [id number] [facility] 2024-01-27 09:51:30 2024-01-27 09:51:30 Outpatient [facility] [id number] Nicholas Goldman Phan 2024-01-13 00:00:00 2024-01-13 00:00:00 Joey Medrano MD: [address] [place] [id number] , Ph. [phone] Darryl Mack [facility] [place] [facility] [place] [id number] [facility] 2024-01-13 00:00:00 2024-01-13 00:00:00 Joey Medrano MD: [id number] [place] [address] , Ph. [phone] [facility] [place] [facility] [place] [id number] [facility] 2024-01-12 00:00:00 2024-01-12 00:00:00 Outpatient FOG_Mitchell_Henry yee_ [facility] [id number] [facility] 2024-01-12 00:00:00 2024-01-12 00:00:00 OFFICE VISIT ESTAB PT LEVEL 4 STLMLC STLMLC [id number] [facility] 2024-01-06 00:00:00 2024-01-06 00:00:00 Outpatient DEVANG_Alena Mack [facility] [id number] [facility] 2024-01-04 00:00:00 2024-01-04 00:00:00 (TEL) STLMLC STLMLC [id number] [facility] 2023-12-28 14:15:32 2023-12-28 14:15:32 Outpatient [facility] [id number] Nicholas F Phan 2023-10-18 14:44:31 2023-10-18 14:44:31 Outpatient [facility] [id number] Nicholas Goldman Phan 2023-10-18 00:00:00 2023-10-18 00:00:00 (TEL) STLMLC [facility]C [id number] [facility] 2023-09-30 00:00:00 2023-09-30 00:00:00 (TEL) STLMLC STLMLC [id number] [facility] 2023-09-30 00:00:00 2023-09-30 00:00:00 OFFICE VISIT ESTAB PT LEVEL 3 STLMLC STLMLC [id number] [facility] 2023-09-20 00:00:00 2023-09-20 00:00:00 Outpatient GC_GCBZW_Ka diyala_S [facility] [id number] [facility] 2023-09-14 00:00:00 2023-09-14 00:00:00 (TEL) STLMLC STLMLC [id number] [facility] 2023-09-14 00:00:00 2023-09-14 00:00:00 OFFICE VISIT ESTAB PT LEVEL 4 STLMLC STLMLC [id number] [facility] 2023-08-10 13:18:13 2023-08-10 13:18:13 Outpatient [facility] [id number] Nicholas Chisholm 2023-07-14 10:43:12 2023-07-14 10:43:12 Outpatient [facility] [id number] Nicholas Goldman Phan 2023-07-13 12:58:56 2023-07-13 12:58:56 Outpatient [facility] [id number] Nicholas Chisholm 2023-06-18 00:00:00 2023-06-18 00:00:00 (TEL) STLMLC STLMLC [id number] [facility] 2023-06-09 00:00:00 2023-06-09 00:00:00 OFFICE VISIT ESTAB PT LEVEL 4 STLMLC STLMLC [id number] [facility] 2023-06-09 00:00:00 2023-06-09 00:00:00 SUB ANNUAL [facility] VIS[facility] STLMLC STLMLC [id number] [facility] 2023-06-08 12:58:13 2023-06-08 12:58:13 Outpatient [facility] [id number] Nicholas Goldman Phan 2023-05-11 12:58:26 2023-05-11 12:58:26 Outpatient [facility] [id number] Nicholas Goldman Phan 2023-04-19 12:58:11 2023-04-19 12:58:11 Outpatient [facility] [id number] Nicholas Chisholm 2023-04-14 00:00:00 2023-04-14 00:00:00 (TEL) STLMLC STLMLC [id number] [facility] 2023-04-09 13:59:04 2023-04-09 13:59:04 Outpatient [facility] [id number] Nicholas Chisholm 2023-03-23 10:17:50 2023-03-23 10:17:50 Outpatient [facility] [id number] Nicholas Chisholm 2023-03-11 14:38:18 2023-03-11 14:38:18 Outpatient [facility] [id number] Nicholas Chisholm 2023-03-01 00:00:00 2023-03-01 00:00:00 (TEL) STLMLC STLMLC [id number] [facility] 2023-01-18 00:00:00 2023-01-18 00:00:00 OFFICE VISIT ESTAB PT LEVEL 4 STLMLC STLMLC [id number] [facility] 2023-01-18 00:00:00 2023-01-18 00:00:00 (TEL) STLMLC STLMLC [id number] [facility] 2022-10-14 00:00:00 2022-10-14 00:00:00 OFFICE VISIT ESTAB PT LEVEL 4 STLMLC STLMLC [id number] [facility] 2022-10-02 00:00:00 2022-10-02 00:00:00 (TEL) STLMLC STLMLC [id number] [facility] 2022-08-17 00:00:00 2022-08-17 00:00:00 (TEL) STLMLC STLMLC [id number] [facility] 2022-08-13 00:00:00 2022-08-13 00:00:00 (TEL) STLMLC STLMLC [id number] [facility] 2022-08-07 00:00:00 2022-08-07 00:00:00 Telephone Adum, Kiesha L [facility] [id number] [id number] [id number] [facility] 2022-07-21 15:00:00 2022-07-21 16:00:37 Office Visit AdKiesha sexton [facility] [id number] 350.1.13.10 [id number] [id number] [facility] 2022-07-21 15:00:00 2022-07-21 16:00:37 Outpatient R KIESHA [facility] [id number] [facility] 2022-07-21 15:00:00 2022-07-21 15:00:00 Outpatient R KIESHA [facility] [id number] [facility] 2022-07-14 00:00:00 2022-07-14 00:00:00 OFFICE VISIT ESTAB PT LEVEL 4 STLMLC STLMLC [id number] [facility] 2022-06-10 00:00:00 2022-06-10 00:00:00 SUB ANNUAL [facility] VIS[facility] STLMLC STLMLC [id number] [facility] 2022-04-16 00:00:00 2022-04-16 00:00:00 (TEL) STLMLC STLMLC [id number] [facility] 2022-04-13 00:00:00 2022-04-13 00:00:00 OFFICE VISIT ESTAB PT LEVEL 4 STLMLC STLMLC [id number] [facility] 2022-02-24 00:00:00 2022-02-24 00:00:00 (TEL) STLMLC STLMLC [id number] [facility] 2021-11-27 00:00:00 2021-11-27 00:00:00 OFFICE VISIT ESTAB PT LEVEL 4 STLMLC STLMLC [id number] [facility] 2021-10-21 00:00:00 2021-10-21 00:00:00 (TEL) STLMLC STLMLC [id number] [facility] 2021-08-27 00:00:00 2021-08-27 00:00:00 OFFICE VISIT ESTAB PT LEVEL 4 STLMLC STLMLC [id number] [facility] 2021-08-13 00:00:00 2021-08-13 00:00:00 Outpatient STLMLC STLMLC [id number] [facility] 2021-07-24 00:00:00 2021-07-24 00:00:00 Outpatient STLMLC STLMLC [id number] [facility] 2021-07-24 00:00:00 2021-07-24 00:00:00 Outpatient STLMLC STLMLC [id number] [facility] 2021-05-29 00:00:00 2021-05-29 00:00:00 Outpatient STLMLC STLMLC [id number] [facility] 2021-05-29 00:00:00 2021-05-29 00:00:00 Outpatient STLMLC STLMLC [id number] [facility] 2021-04-22 00:00:00 2021-04-22 00:00:00 Outpatient STLMLC STLMLC [id number] [facility] 2021-02-26 00:00:00 2021-02-26 00:00:00 Outpatient STLMLC STLMLC [id number] [facility] 2021-02-01 00:00:00 2021-02-01 00:00:00 Patient Outreach Nathaniel Hernadez [facility] [id number] 350.1.13.10 [id number] [id number] [facility] 2021-01-21 00:00:00 2021-01-21 00:00:00 Outpatient STLMLC STLMLC [id number] [facility] 2020-12-24 00:00:00 2020-12-24 00:00:00 Outpatient STLMLC STLMLC [id number] [facility] 2020-12-23 15:22:06 2020-12-23 16:01:41 Office Visit Shayy [place] [facility] 1..114 350.1.13.10 [id number] [id number] [facility] 2020-12-23 15:30:00 2020-12-23 15:30:00 Outpatient Henry [place] [facility] [id number] [facility] 2020-12-06 12:55:13 2020-12-06 13:25:13 Office Visit [facility] 1..114 350.1.13.10 4.2.7.2.686 [id number] [facility] 2020-12-06 13:00:00 2020-12-06 13:00:00 Outpatient R [place] [facility] [id number] [facility] 2020-12-06 00:00:00 2020-12-06 00:00:00 Orders Only Doctor Unassigned, [place] [facility] 1.840.114 350.1.13.10 4.2.7.2.686 [id number] [facility] 2020-12-05 08:40:53 2020-12-05 16:49:31 Office Visit Philomena Cheung [facility] 1.0.114 350.1.13.10 4.2.7.2.686 [id number] 2020-12-05 08:40:53 2020-12-05 16:49:31 Office Visit Philomena Cheung [facility] 1.0.114 350.1.13.10 4.2.7.2.686 [id number] [facility] 2020-12-05 08:45:00 2020-12-05 08:45:00 Outpatient PHILOMENA MARIANO [facility] [id number] [facility] 2020-11-28 00:00:00 2020-11-28 00:00:00 Outpatient STLMLC STLMLC [id number] [facility] 2020-11-28 00:00:00 2020-11-28 00:00:00 Outpatient STLMLC STLMLC [id number] [facility] 2020-11-01 00:00:00 2020-11-01 00:00:00 Outpatient STLMLC STLMLC [id number] [facility] 2020-10-22 00:00:00 2020-10-22 00:00:00 Telephone [facility] 1..840.114 350.1.13.10 4.2.7.2.686 [id number] [facility] 2020-10-21 13:20:16 2020-10-21 14:09:54 Office Visit Shayy [place] 1.2.840.114 350.1.13.10 4.2.7.2.686 [id number] [facility] 2020-10-21 13:30:00 2020-10-21 13:30:00 [facility] [id number] [facility] 2020-10-21 00:00:00 2020-10-21 00:00:00 Orders Only Doctor Unassigned, [place] [facility] 1.840.114 350.1.13.10 4.2.7.2.686 [id number] [facility] 2020-10-15 00:00:00 2020-10-15 00:00:00 Telephone [facility] 1..840.114 350.1.13.10 4.2.7.2.686 [id number] [facility] 2020-10-15 00:00:00 2020-10-15 00:00:00 Telephone [facility] 1.2.840.114 350.1.13.10 4.2.7.2.686 [id number] [facility] 2020-10-15 00:00:00 2020-10-15 00:00:00 Telephone Tamie [place] FORESTR[facility] AID TECHNICIAN [facility] 1.2.840.114 350.1.13.10 4.2.7.2.686 [id number] [facility] 2020-10-14 13:01:52 2020-10-14 13:28:42 Office Visit Juan [facility] 1.2.840.114 350.1.13.10 4.2.7.2.686 [id number] [facility] 2020-10-14 13:00:00 2020-10-14 13:00:00 [facility] [id number] 2020-10-14 00:00:00 2020-10-14 00:00:00 Outpatient STLMLC STLMLC [id number] [facility] 2020-08-28 00:00:00 2020-08-28 00:00:00 Outpatient STLMLC STLMLC [id number] [facility] 2020-08-15 00:00:00 2020-08-15 00:00:00 Outpatient STLMLC STLMLC [id number] [facility] 2020-08-14 00:00:00 2020-08-14 00:00:00 Outpatient STLMLC STLMLC [id number] [facility] 2020-07-31 11:42:00 2020-07-31 11:42:00 [facility] [id number] [facility] 2020-07-31 10:00:00 2020-07-31 10:00:00 [facility] [place] [facility] [id number] [facility] 2020-06-10 10:20:52 2020-06-18 15:33:43 Office Visit Tamie Salinas [facility] FORESTRY AID TECHNICIAN [facility] [id number] [facility] 2020-06-11 13:45:00 2020-06-11 13:45:00 [facility] [id number] [facility] 2020-06-10 10:15:00 2020-06-10 10:15:00 Outpatient R TAMIE SALINAS [facility] [id number] [facility] 2020-06-10 00:00:00 2020-06-10 00:00:00 Orders Only Doctor Unassigned, [place] [facility] [id number] [facility] 2020-06-04 08:47:00 2020-06-04 08:47:00 [facility] [place] [facility] Medicine [id number] [facility] 2020-05-28 15:17:00 2020-05-28 15:17:00 [facility] [place] [facility] [id number] [facility] 2020-05-23 16:02:00 2020-05-23 16:02:00 [facility] [place] [facility] [id number] [facility] 2020-05-22 09:28:00 2020-05-22 09:28:00 [facility] [place] [facility] [id number] [facility] 2020-05-13 10:12:00 2020-05-13 10:12:[address] [facility] [id number] [facility] 2020-05-08 14:30:00 2020-05-08 14:30:[address] [facility] [id number] [facility] 2020-05-08 07:55:00 2020-05-08 07:55:[address] [facility] [id number] [facility] 2020-04-30 10:45:00 2020-04-30 10:45:[address] [facility] [facility] [id number] [facility] 2020-04-30 10:45:00 2020-04-30 10:45:[address] [facility] [facility] [id number] [facility] 2020-04-08 13:10:00 2020-04-08 13:10:[address] [facility] [facility] [id number] [facility] 2020-02-17 15:00:00 2020-02-17 15:00:[address] [facility] [id number] [facility] 2020-02-16 16:47:00 2020-02-16 16:47:[address] [facility] [id number] [facility] 2020-01-29 10:30:00 2020-01-29 10:30:[address] [facility] [id number] [facility] 2019-10-30 10:15:00 2019-10-30 10:15:[address] [facility] [id number] [facility] 2019-10-24 08:29:00 2019-10-24 08:29:[address] [facility] [id number] [facility] 2019-07-27 09:45:00 2019-07-27 09:45:00 [facility] [place] [facility] [id number] [facility] 2019-05-23 11:41:00 2019-05-23 11:41:00 [facility] [id number] [facility] 2019-03-08 14:45:00 2019-03-08 14:45:00 [facility] [id number] [facility] 2019-02-22 10:00:00 2019-02-22 10:00:00 Outpatient [facility] [id number] [facility] 2019-02-01 09:33:00 2019-02-01 09:33:00 [facility] [place] [facility] [id number] [facility] 2019-01-25 13:30:00 2019-01-25 13:30:00 [facility] [id number] [facility] Results Test Description Test Time Test Comments Results Result Co mments Source HERPES SIMPLEX VIRUS, [id number] 00:00:00* Test Item Value Reference Range Interpretation Comme nts SPECIMEN SOURCE (test code = 01199) RIGHT LABIA HSV TYPE I (test code = 478666) NEGATIVE HSV TYPE II (test code = 020661) NEGATIVE Nicholas Susi PhanHERPES SIMPLEX VIRUS, [id number] 00:00:00* Test Item Value Reference Range Interpretation Comme nts SPECIMEN SOURCE (test code = 93152) RIGHT LABIA HSV TYPE I (test code = 660536) NEGATIVE HSV TYPE II (test code = 424378) NEGATIVE [facility] W/AUTO [id number] 00:00:00* Test Item Value Reference Range Interpretation Comme nts NUCLEATED RBCS (test code = 43794-4) 0.0 /100 WBC'S See_Comment [Automated messa ge] The system which generated this result transmitted reference range: 0.0 /100 WBC'S. The reference range was not used to interpret this result as normal/abnormal. ABSOLUTE EOSINOPHILS (test code = 70593-5) 0.11 K/UL See_Comment [Automated messa ge] The system which generated this result transmitted reference range: 0.00-0.50 K/UL. The reference range was not used to interpret this result as normal/abnormal. ABSOLUTE LYMPHOCYTES (test code = 68256-9) 1.86 K/UL See_Comment [Automated messa ge] The system which generated this result transmitted reference range: 1.00-4.00 K/UL. The reference range was not used to interpret this result as normal/abnormal. ABSOLUTE MONOCYTES (test code = 84562-3) 0.36 K/UL See_Comment [Automated messa ge] The system which generated this result transmitted reference range: 0.20-1.00 K/UL. The reference range was not used to interpret this result as normal/abnormal. ABSOLUTE NEUTROPHILS (test code = 34732-0) 2.59 K/UL See_Comment [Automated messa ge] The system which generated this result transmitted reference range: 1.50-7.50 K/UL. The reference range was not used to interpret this result as normal/abnormal. BASOPHILS (test code = 85072-9) 0.8 % EOSINOPHILS (test code = 96399-6) 2.2 % HEMATOCRIT (test code = 38481-9) 41.9 % See_Comment [Automated messa ge] The system which generated this result transmitted reference range: 34.0-45.0 %. The reference range was not used to interpret this result as normal/abnormal. HEMOGLOBIN (test code = 718-7) 13.5 G/DL See_Comment [Automated messa ge] The system which generated this result transmitted reference range: 11.5-15.5 G/DL. The reference range was not used to interpret this result as normal/abnormal. LYMPHOCYTES (test code = 08001-0) 37.4 % MCH (test code = 49816-9) 26.6 PG See_Comment [Automated messa ge] The system which generated this result transmitted reference range: 25.0-33.0 PG. The reference range was not used to interpret this result as normal/abnormal. MCHC (test code = 67755-8) 32.2 G/DL See_Comment [Automated messa ge] The system which generated this result transmitted reference range: 31.0-36.0 G/DL. The reference range was not used to interpret this result as normal/abnormal. MCV (test code = 40705-3) 82.6 fL See_Comment [Automated messa ge] The system which generated this result transmitted reference range: 80.0-99.0 fL. The reference range was not used to interpret this result as normal/abnormal. MONOCYTES (test code = 92736-0) 7.2 % NEUTROPHILS (test code = 00771-2) 52.2 % PLATELET COUNT (test code = 03043-3) 201 K/UL See_Comment [Automated messa ge] The system which generated this result transmitted reference range: 130-400 K/UL. The reference range was not used to interpret this result as normal/abnormal. RBC (test code = 46941-2) 5.07 M/UL See_Comment [Automated messa ge] The system which generated this result transmitted reference range: 3.80-5.40 M/UL. The reference range was not used to interpret this result as normal/abnormal. RDW (test code = 93988-3) 12.2 % See_Comment [Automated messa ge] The system which generated this result transmitted reference range: 11.5-15.0 %. The reference range was not used to interpret this result as normal/abnormal. WBC (test code = 64449-2) 5.0 K/UL See_Comment [Automated messa ge] The system which generated this result transmitted reference range: 3.5-11.0 K/UL. The reference range was not used to interpret this result as normal/abnormal. HEMOGLOBIN [id number] 00:00:00* Test Item Value Reference Range Interpretation Comme nts HEMOGLOBIN A1c (test code = 4548-4) 5.8 % See_Comment H [Automated messa ge] The system which generated this result transmitted reference range: 4.2-5.6 %. The reference range was not used to interpret this result as normal/abnormal. VITAMIN D, 25 [id number] 00:00:00* Test Item Value Reference Range Interpretation Comme nts VITAMIN D, 25 OH (test code = 1988-) 18 NG/ML SEE BELOW NG/ML L LIPID PANEL WITH REFLEX DIRECT [id number] 00:00:00* Test Item Value Reference Range Interpretation [facility] CALC LDL CHOL (test code = 03510-0) 125 MG/DL See_Comment H [Automated messa ge] The system which generated this result transmitted reference range: <100 MG/DL. The reference range was not used to interpret this result as normal/abnormal. CHOLESTEROL (test code = 2093-3) 203 MG/DL See_Comment H [Automated messa ge] The system which generated this result transmitted reference range: <200 MG/DL. The reference range was not used to interpret this result as normal/abnormal. HDL CHOLESTEROL (test code = 2085-9) 56 MG/DL See_Comment [Automated messa ge] The system which generated this result transmitted reference range: >39 MG/DL. The reference range was not used to interpret this result as normal/abnormal. RISK RATIO LDL/HDL (test code = 33967-5) 2.23 RATIO See_Comment [Automated message] The system which generated this result transmitted reference range: <3.22 RATIO. The reference range was not used to interpret this result as normal/abnormal. TRIGLYCERIDES (test code = 2571-8) 113 MG/DL See_Comment [Automated messa ge] The system which generated this result transmitted reference range: <150 MG/DL. The reference range was not used to interpret this result as normal/abnormal. COMPREHENSIVE METABOLIC [id number] 00:00:00* Test Item Value Reference Range Interpretation [facility] ALBUMIN (test code = 1751-7) 4.6 G/DL See_Comment [Automated messa ge] The system which generated this result transmitted reference range: 3.5-5.2 G/DL. The reference range was not used to interpret this result as normal/abnormal. ALKALINE PHOSPHATASE (test code = 6768-6) 65 U/L See_Comment [Automated message] The system which generated this result transmitted reference range: 40-136 U/L. The reference range was not used to interpret this result as normal/abnormal. BILIRUBIN, TOTAL (test code = 1975-2) 0.2 MG/DL See_Comment [Automated message] The system which generated this result transmitted reference range: <=1.2 MG/DL. The reference range was not used to interpret this result as normal/abnormal. BUN (test code = 3094-0) 14 MG/DL See_Comment [Automated messa ge] The system which generated this result transmitted reference range: 6-20 MG/DL. The reference range was not used to interpret this result as normal/abnormal. CALCIUM (test code = 69910-2) 9.6 MG/DL See_Comment [Automated messa ge] The system which generated this result transmitted reference range: 8.5-10.5 MG/DL. The reference range was not used to interpret this result as normal/abnormal. CALC A/G RATIO (test code = 1759-0) 1.6 RATIO See_Comment [Automated messa ge] The system which generated this result transmitted reference range: 1.0-2.6 RATIO. The reference range was not used to interpret this result as normal/abnormal. CALC BUN/CREAT (test code = 3097-3) 16 RATIO See_Comment [Automated messa ge] The system which generated this result transmitted reference range: 6-28 RATIO. The reference range was not used to interpret this result as normal/abnormal. CALC GLOBULIN (test code = 10560-6) 2.8 G/DL See_Comment [Automated messa ge] The system which generated this result transmitted reference range: 1.9-3.7 G/DL. The reference range was not used to interpret this result as normal/abnormal. CARBON DIOXIDE (test code = 1963-8) 25 MEQ/L See_Comment [Automated messa ge] The system which generated this result transmitted reference range: 19-31 MEQ/L. The reference range was not used to interpret this result as normal/abnormal. CHLORIDE (test code = 2075-0) 106 MEQ/L See_Comment [Automated messa ge] The system which generated this result transmitted reference range: 95-107 MEQ/L. The reference range was not used to interpret this result as normal/abnormal. CREATININE (test code = 2160-0) 0.87 MG/DL See_Comment [Automated messa ge] The system which generated this result transmitted reference range: 0.60-1.30 MG/DL. The reference range was not used to interpret this result as normal/abnormal. eGFR (2020 CKD-EPI) (test code = 15637-0) 77 ML/MIN/1.73 See_Comment [Automated messa ge] The system which generated this result transmitted reference range: >60 ML/MIN/1.73. The reference range was not used to interpret this result as normal/abnormal. GLUCOSE (test code = 1558-6) 97 MG/DL See_Comment [Automated messa ge] The system which generated this result transmitted reference range: 70-99 MG/DL. The reference range was not used to interpret this result as normal/abnormal. POTASSIUM (test code = 2823-3) 4.4 MEQ/L See_Comment [Automated messa ge] The system which generated this result transmitted reference range: 3.5-5.4 MEQ/L. The reference range was not used to interpret this result as normal/abnormal. PROTEIN, TOTAL (test code = 2885-2) 7.4 G/DL See_Comment [Automated messa ge] The system which generated this result transmitted reference range: 6.1-8.3 G/DL. The reference range was not used to interpret this result as normal/abnormal. AST (test code = 1920-8) 19 U/L See_Comment [Automated messa ge] The system which generated this result transmitted reference range: 9-40 U/L. The reference range was not used to interpret this result as normal/abnormal. ALT (test code = 1742-6) 19 U/L See_Comment [Automated messa ge] The system which generated this result transmitted reference range: 5-40 U/L. The reference range was not used to interpret this result as normal/abnormal. SODIUM (test code = 2951-2) 144 MEQ/L See_Comment [Automated messa ge] The system which generated this result transmitted reference range: 133-146 MEQ/L. The reference range was not used to interpret this result as normal/abnormal. CT/NG, NAAT, [id number] 20:27:14* Test Item Value Reference Range Interpretation Comme nts CHLAMYDIA, NAAT, URINE (test code = 64251) NEGATIVE NEGATIVE Testing is perfo rmed with Lisa JOSE 6800/8800 systems usingreal-time polymerase chain reaction (PCR) method. A negative result does not exclude low level infection, specimensampling error, or collection error. GONORRHEA, NAAT, URINE (test code = 36318) NEGATIVE NEGATIVE Testing is perfo rmed with Lisa JOSE 6800/8800 systems usingreal-time polymerase chain reaction (PCR) method. A negative result does not exclude low level infection, specimensampling error, or collection error. HIV 1/2 4TH GEN, RFLX [id number] 04:34:37* Test Item Value Reference Range Interpretation Comme nts HIV 1/2 4TH GEN, RFLX CONF (test code = 3514) NON-REACTIVE NON-REACTIVE UNLESS OTHERWISE INDICATED, ALL TESTING PERFORMED AT [facility] [address] [place] [address] PORTER MARINA: FERMIN YBARRA M.D. CLIA NUMBER [id number] [facility] [place] [id number] CT/NG, TMA, [id number] 00:00:00* Test Item Value Reference Range Interpretation Comme nts CHLAMYDIA, NAAT, URINE (test code = 02292) NEGATIVE GONORRHEA, NAAT, URINE (test code = 77763) NEGATIVE Nicholasleda ChisholmHIV 1/2 4TH GEN, RFLX [id number] 00:00:00* Test Item Value Reference Range Interpretation Comme nts HIV 1/2 4TH GEN, RFLX CONF ( test code = 3514) NON-REACTIVE Nicholas Susi AustinCT/NG, TMA, [id number] 00:00:00* Test Item Value Reference Range Interpretation Comme nts CHLAMYDIA, NAAT, URINE (test code = 84602) NEGATIVE GONORRHEA, NAAT, URINE (test code = 55421) NEGATIVE Nicholas F AustinHIV 1/2 4TH GEN, RFLX [id number] 00:00:00* Test Item Value Reference Range Interpretation Comme nts HIV 1/2 4TH GEN, RFLX CONF ( test code = 3514) NON-REACTIVE Nicholas Susi ChisholmCBC W/AUTO [id number] 00:00:00* Test Item Value Reference Range Interpretation Comme nts NUCLEATED RBCS (test code = 55277-3) 0.0 /100 WBC'S See_Comment [Automated messa ge] The system which generated this result transmitted reference range: 0.0 /100 WBC'S. The reference range was not used to interpret this result as normal/abnormal. ABSOLUTE EOSINOPHILS (test code = 35460-5) 0.14 K/UL See_Comment [Automated messa ge] The system which generated this result transmitted reference range: 0.00-0.50 K/UL. The reference range was not used to interpret this result as normal/abnormal. ABSOLUTE LYMPHOCYTES (test code = 30552-4) 1.81 K/UL See_Comment [Automated messa ge] The system which generated this result transmitted reference range: 1.00-4.00 K/UL. The reference range was not used to interpret this result as normal/abnormal. ABSOLUTE MONOCYTES (test code = 05409-6) 0.41 K/UL See_Comment [Automated messa ge] The system which generated this result transmitted reference range: 0.20-1.00 K/UL. The reference range was not used to interpret this result as normal/abnormal. ABSOLUTE NEUTROPHILS (test code = 04881-1) 2.52 K/UL See_Comment [Automated messa ge] The system which generated this result transmitted reference range: 1.50-7.50 K/UL. The reference range was not used to interpret this result as normal/abnormal. BASOPHILS (test code = 91804-5) 0.6 % EOSINOPHILS (test code = 51117-1) 2.8 % HEMATOCRIT (test code = 57194-1) 43.2 % See_Comment [Automated messa ge] The system which generated this result transmitted reference range: 34.0-45.0 %. The reference range was not used to interpret this result as normal/abnormal. HEMOGLOBIN (test code = 718-7) 14.1 G/DL See_Comment [Automated messa ge] The system which generated this result transmitted reference range: 11.5-15.5 G/DL. The reference range was not used to interpret this result as normal/abnormal. LYMPHOCYTES (test code = 74715-1) 36.8 % MCH (test code = 72832-0) 27.8 PG See_Comment [Automated messa ge] The system which generated this result transmitted reference range: 25.0-33.0 PG. The reference range was not used to interpret this result as normal/abnormal. MCHC (test code = 86730-1) 32.6 G/DL See_Comment [Automated messa ge] The system which generated this result transmitted reference range: 31.0-36.0 G/DL. The reference range was not used to interpret this result as normal/abnormal. MCV (test code = 31799-6) 85.0 fL See_Comment [Automated messa ge] The system which generated this result transmitted reference range: 80.0-99.0 fL. The reference range was not used to interpret this result as normal/abnormal. MONOCYTES (test code = 51384-0) 8.3 % NEUTROPHILS (test code = 85601-5) 51.3 % PLATELET COUNT (test code = 56377-0) 194 K/UL See_Comment [Automated ESBATecha ge] The system which generated this result transmitted reference range: 130-400 K/UL. The reference range was not used to interpret this result as normal/abnormal. RBC (test code = 80840-2) 5.08 M/UL See_Comment [Automated ESBATecha ge] The system which generated this result transmitted reference range: 3.80-5.40 M/UL. The reference range was not used to interpret this result as normal/abnormal. RDW (test code = 59120-3) 12.9 % See_Comment [Automated ESBATecha ge] The system which generated this result transmitted reference range: 11.5-15.0 %. The reference range was not used to interpret this result as normal/abnormal. WBC (test code = 91035-7) 4.9 K/UL See_Comment [Automated ESBATecha [employer] Quotes] The system which generated this result transmitted reference range: 3.5-11.0 K/UL. The reference range was not used to interpret this result as normal/abnormal. HEMOGLOBIN [id number] 00:00:00* Test Item Value Reference Range Interpretation Comme [facility] HEMOGLOBIN A1c (test code = 4548-4) 5.8 % See_Comment H [Automated ESBATecha [employer]] The system which generated this result transmitted reference range: 4.2-5.6 %. The reference range was not used to interpret this result as normal/abnormal. VITAMIN D, 25 [id number] 00:00:00* Test Item Value Reference Range Interpretation Comme [facility] VITAMIN D, 25 OH (test code = 1989-3) 20 NG/ML SEE BELOW NG/ML L LIPID PANEL WITH REFLEX DIRECT [id number] 00:00:00* Test Item Value Reference Range Interpretation Comme nts CALC LDL CHOL (test code = 96239-7) 164 MG/DL See_Comment H [Automated messa ge] The system which generated this result transmitted reference range: <100 MG/DL. The reference range was not used to interpret this result as normal/abnormal. CHOLESTEROL (test code = 2093-3) 239 MG/DL See_Comment H [Automated messa ge] The system which generated this result transmitted reference range: <200 MG/DL. The reference range was not used to interpret this result as normal/abnormal. HDL CHOLESTEROL (test code = 2085-9) 52 MG/DL See_Comment [Automated messa ge] The system which generated this result transmitted reference range: >39 MG/DL. The reference range was not used to interpret this result as normal/abnormal. RISK RATIO LDL/HDL (test code = 21254-0) 3.15 RATIO See_Comment [Automated message] The system which generated this result transmitted reference range: <3.22 RATIO. The reference range was not used to interpret this result as normal/abnormal. TRIGLYCERIDES (test code = 2571-8) 117 MG/DL See_Comment [Automated messa ge] The system which generated this result transmitted reference range: <150 MG/DL. The reference range was not used to interpret this result as normal/abnormal. COMPREHENSIVE METABOLIC [id number] 00:00:00* Test Item Value Reference Range Interpretation Comme nts ALBUMIN (test code = 1751-7) 4.8 G/DL See_Comment [Automated messa ge] The system which generated this result transmitted reference range: 3.5-5.2 G/DL. The reference range was not used to interpret this result as normal/abnormal. ALKALINE PHOSPHATASE (test code = 6768-6) 64 U/L See_Comment [Automated message] The system which generated this result transmitted reference range: 40-136 U/L. The reference range was not used to interpret this result as normal/abnormal. BILIRUBIN, TOTAL (test code = 1975-2) 0.3 MG/DL See_Comment [Automated message] The system which generated this result transmitted reference range: <=1.2 MG/DL. The reference range was not used to interpret this result as normal/abnormal. BUN (test code = 3094-0) 16 MG/DL See_Comment [Automated messa ge] The system which generated this result transmitted reference range: 6-20 MG/DL. The reference range was not used to interpret this result as normal/abnormal. CALCIUM (test code = 08237-4) 9.8 MG/DL See_Comment [Automated messa ge] The system which generated this result transmitted reference range: 8.5-10.5 MG/DL. The reference range was not used to interpret this result as normal/abnormal. CALC A/G RATIO (test code = 1759-0) 1.9 RATIO See_Comment [Automated messa ge] The system which generated this result transmitted reference range: 1.0-2.6 RATIO. The reference range was not used to interpret this result as normal/abnormal. CALC BUN/CREAT (test code = 3097-3) 18 RATIO See_Comment [Automated messa ge] The system which generated this result transmitted reference range: 6-28 RATIO. The reference range was not used to interpret this result as normal/abnormal. CALC GLOBULIN (test code = 19625-1) 2.5 G/DL See_Comment [Automated messa ge] The system which generated this result transmitted reference range: 1.9-3.7 G/DL. The reference range was not used to interpret this result as normal/abnormal. CARBON DIOXIDE (test code = 1963-8) 25 MEQ/L See_Comment [Automated messa ge] The system which generated this result transmitted reference range: 19-31 MEQ/L. The reference range was not used to interpret this result as normal/abnormal. CHLORIDE (test code = 2075-0) 105 MEQ/L See_Comment [Automated messa ge] The system which generated this result transmitted reference range: 95-107 MEQ/L. The reference range was not used to interpret this result as normal/abnormal. CREATININE (test code = 2160-0) 0.91 MG/DL See_Comment [Automated messa ge] The system which generated this result transmitted reference range: 0.60-1.30 MG/DL. The reference range was not used to interpret this result as normal/abnormal. eGFR (2020 CKD-EPI) (test code = 51791-7) 73 ML/MIN/1.73 See_Comment [Automated messa ge] The system which generated this result transmitted reference range: >60 ML/MIN/1.73. The reference range was not used to interpret this result as normal/abnormal. GLUCOSE (test code = 1558-6) 111 MG/DL See_Comment H [Automated messa ge] The system which generated this result transmitted reference range: 70-99 MG/DL. The reference range was not used to interpret this result as normal/abnormal. POTASSIUM (test code = 2823-3) 4.3 MEQ/L See_Comment [Automated messa ge] The system which generated this result transmitted reference range: 3.5-5.4 MEQ/L. The reference range was not used to interpret this result as normal/abnormal. PROTEIN, TOTAL (test code = 2885-2) 7.3 G/DL See_Comment [Automated messa ge] The system which generated this result transmitted reference range: 6.1-8.3 G/DL. The reference range was not used to interpret this result as normal/abnormal. AST (test code = 1920-8) 17 U/L See_Comment [Automated messa ge] The system which generated this result transmitted reference range: 9-40 U/L. The reference range was not used to interpret this result as normal/abnormal. ALT (test code = 1742-6) 17 U/L See_Comment [Automated messa ge] The system which generated this result transmitted reference range: 5-40 U/L. The reference range was not used to interpret this result as normal/abnormal. SODIUM (test code = 2951-2) 144 MEQ/L See_Comment [Automated messa ge] The system which generated this result transmitted reference range: 133-146 MEQ/L. The reference range was not used to interpret this result as normal/abnormal. TSH, THIRD [id number] 05:29:52* Test Item Value Reference Range Interpretation Comme [facility] TSH, THIRD GENERATION (test code = 2821) 1.630 UIU/ML 0.400-4.100 VITAMIN D, 25 [id number] 05:21:29* Test Item Value Reference Range Interpretation Comme [facility] VITAMIN D, 25 OH (test code = 4958) 12 NG/ML SEE BELOW L NOTE: 25-HYDR OXYVITAMIN D ASSAY INCLUDES 25-HYDROXYVITAMIN D2 AND D3. METHODOLOGY IS CHEMILUMINESCENT IMMUNOASSAY. INTERPRETIVE RANGES PEDIATRIC (<17 YEARS) . . . . . . . . . . . NG/ML 20-100ADULT: INSUFFICIENT . . . . . . . . . . . . . . NG/ML <20 SUBOPTIMAL . . . . . . . . . . . . . . . NG/ML 20-29 OPTIMAL . . . . . . . . . . . . . . . . . NG/ML 30-100 UNLESS OTHERWISE INDICATED, ALL TESTING PERFORMED [facility] [employer] [address] [place] [id number] PORTER MARINA: LUIS HUMPHREYS M.D. CLIA NUMBER [id number] [facility] [place]. [id number] HEMOGLOBIN [id number] 05:14:35* Test Item Value Reference Range Interpretation Comme nts HEMOGLOBIN A1c (test code = 56814) 5.8 % 4.2-5.6 H COMPREHENSIVE METABOLIC [id number] 05:08:46* Test Item Value Reference Range Interpretation Comme nts GLUCOSE (test code = 2217) 107 MG/DL 70-99 H BUN (test code = 2208) 13 MG/DL 6-20 CREATININE (test code = 2214) 0.86 MG/DL 0.60-1.30 eGFR (2020 CKD-EPI) (test code = 08924) 79 ML/MIN/1.73 >60 CALC BUN/CREAT (test code = 2235) 15 RATIO 6-28 SODIUM (test code = 2231) 144 MEQ/L 133-146 POTASSIUM (test code = 2228) 4.6 MEQ/L 3.5-5.4 CHLORIDE (test code = 2215) 104 MEQ/L 95-107 CARBON DIOXIDE (test code = 2206) 25 MEQ/L 19-31 CALCIUM (test code = 2209) 9.6 MG/DL 8.5-10.5 PROTEIN, TOTAL (test code = 2229) 7.5 G/DL 6.1-8.3 ALBUMIN (test code = 2201) 4.6 G/DL 3.5-5.2 CALC GLOBULIN (test code = 2240) 2.9 G/DL 1.9-3.7 CALC A/G RATIO (test code = 2234) 1.6 RATIO 1.0-2.6 BILIRUBIN, TOTAL (test code = 2207) <0.2 MG/DL See_Comment [Automated me ssage] The system which generated this result transmitted reference range: <=1.2. The reference range was not used to interpret this result as normal/abnormal. ALKALINE PHOSPHATASE (test code = 2204) 69 U/L 40-136 AST (test code = 2218) 20 U/L 9-40 ALT (test code = 2219) 23 U/L 5-40 LIPID [id number] 05:08:46* Test Item Value Reference Range Interpretation Comme nts CHOLESTEROL (test code = 2210) 214 MG/DL <200 H TRIGLYCERIDES (test code = 2232) 80 MG/DL <150 HDL CHOLESTEROL (test code = 2220) 60 MG/DL >39 CALC LDL CHOL (test code = 2237) 137 MG/DL <100 H NOTE: CALCULATED LDL IS BASED ON HALINA-CROCKETT METHOD WHICHINCLUDES ADJUSTABLE TRIGLYCERIDE:VLDL CHOLESTEROL RATIO.THIS FACTOR VARIES BY MEASURED TRIGLYCERIDE AND NON-HDLCHOLESTEROL CONCENTRATIONS WITH INCREASED CALCULATED LDL SEENIN HIGHER TRIGLYCERIDE OR LOWER NON-HDL SPECIMENS. FOR MOREINFORMATION, SEE CLIENT ANNOUNCEMENT AT [email or web address] [email or web address] RATIO LDL/HDL (test code = 2238) 2.28 RATIO <3.22 CBC W/AUTO DIFF WITH [id number] 03:31:03* Test Item Value Reference Range Interpretation Comme nts WBC (test code = 1001) 4.4 K/UL 3.5-11.0 RBC (test code = 1002) 5.26 M/UL 3.80-5.40 HEMOGLOBIN (test code = 1003) 14.2 G/DL 11.5-15.5 HEMATOCRIT (test code = 1004) 43.2 % 34.0-45.0 MCV (test code = 1005) 82.1 fL 80.0-99.0 MCH (test code = 1006) 27.0 PG 25.0-33.0 MCHC (test code = 1007) 32.9 G/DL 31.0-36.0 RDW (test code = 1038) 12.9 % 11.5-15.0 NEUTROPHILS (test code = 1008) 54.0 % LYMPHOCYTES (test code = 1010) 35.2 % MONOCYTES (test code = 1011) 7.0 % EOSINOPHILS (test code = 1012) 2.7 % BASOPHILS (test code = 1013) 0.9 % IMMATURE GRANULOCYTES (test code = 1036) 0.2 % NUCLEATED RBCS (test code = 1065) 0.0 /100 WBC'S See_Comment [Automated ESBATecha ge] The system which generated this result transmitted reference range: 0.0. The reference range was not used to interpret this result as normal/abnormal. PLATELET COUNT (test code = 1015) 191 K/UL 130-400 ABSOLUTE NEUTROPHILS (test code = 1066) 2.39 K/UL 1.50-7.50 ABSOLUTE LYMPHOCYTES (test code = 1067) 1.56 K/UL 1.00-4.00 ABSOLUTE MONOCYTES (test code = 1068) 0.31 K/UL 0.20-1.00 ABSOLUTE EOSINOPHILS (test code = 1040) 0.12 K/UL 0.00-0.50 ABSOLUTE BASOPHILS (test code = 1069) 0.04 K/UL 0.00-0.20 ABS IMMATURE GRANULOCYTES (test code = 1020) 0.01 K/UL 0.00-0.10 ABS NUCLEATED RBCS (test code = 77220) 0.00 K/UL 0.00-0.11 COMPREHENSIVE METABOLIC [id number] 00:00:00* Test Item Value Reference Range Interpretation Comme nts GLUCOSE (test code = 2217) 107 MG/DL BUN (test code = 2208) 13 MG/DL CREATININE (test code = 2214) 0.86 MG/DL eGFR (2020 CKD-EPI) (test co de = 26089) 79 ML/MIN/1.73 CALC BUN/CREAT (test code = 2235) 15 RATIO SODIUM (test code = 2231) 144 MEQ/L POTASSIUM (test code = 2228) 4.6 MEQ/L CHLORIDE (test code = 2215) 104 MEQ/L CARBON DIOXIDE (test code = 2206) 25 MEQ/L CALCIUM (test code = 2209) 9.6 MG/DL PROTEIN, TOTAL (test code = 2229) 7.5 G/DL ALBUMIN (test code = 2201) 4.6 G/DL CALC GLOBULIN (test code = 2240) 2.9 G/DL CALC A/G RATIO (test code = 2234) 1.6 RATIO BILIRUBIN, TOTAL (test code = 2207) <0.2 MG/DL ALKALINE PHOSPHATASE (test code = 2204) 69 U/L AST (test code = 2218) 20 U/L ALT (test code = 2219) 23 U/L Nicholas ChisholmLIPID [id number] 00:00:00* Test Item Value Reference Range Interpretation Comme nts CHOLESTEROL (test code = 2210) 214 MG/DL TRIGLYCERIDES (test code = 2232) 80 MG/DL HDL CHOLESTEROL (test code = 2220) 60 MG/DL CALC LDL CHOL (test code = 2237) 137 MG/DL RISK RATIO LDL/HDL (test cod e = 2238) 2.28 RATIO Nicholas ChisholmHEMOGLOBIN [id number] 00:00:00* Test Item Value Reference Range Interpretation Comme [facility] HEMOGLOBIN A1c (test code = 28912) 5.8 % Nicholas [id number] 00:00:00* Test Item Value Reference Range Interpretation Comme [facility] TSH, THIRD GENERATION (test code = 2821) 1.630 UIU/ML Nicholas ChisholmCBC W/AUTO [id number] 00:00:00* Test Item Value Reference Range Interpretation Comme nts WBC (test code = 1001) 4.4 K/UL RBC (test code = 1002) 5.26 M/UL HEMOGLOBIN (test code = 1003) 14.2 G/DL HEMATOCRIT (test code = 1004) 43.2 % MCV (test code = 1005) 82.1 fL MCH (test code = 1006) 27.0 PG MCHC (test code = 1007) 32.9 G/DL RDW (test code = 1038) 12.9 % NEUTROPHILS (test code = 1008) 54.0 % LYMPHOCYTES (test code = 1010) 35.2 % MONOCYTES (test code = 1011) 7.0 % EOSINOPHILS (test code = 1012) 2.7 % BASOPHILS (test code = 1013) 0.9 % IMMATURE GRANULOCYTES (test code = 1036) 0.2 % NUCLEATED RBCS (test code = 1065) 0.0 /100WBC'S PLATELET COUNT (test code = 1015) 191 K/UL ABSOLUTE NEUTROPHILS (test c ode = 1066) 2.39 K/UL ABSOLUTE LYMPHOCYTES (test c ode = 1067) 1.56 K/UL ABSOLUTE MONOCYTES (test cod e = 1068) 0.31 K/UL ABSOLUTE EOSINOPHILS (test c ode = 1040) 0.12 K/UL ABSOLUTE BASOPHILS (test cod e = 1069) 0.04 K/UL ABS IMMATURE GRANULOCYTES (t est code = 1020) 0.01 K/UL ABS NUCLEATED RBCS (test cod e = 44346) 0.00 K/UL Nicholas ChisholmVITAMIN D, 25 [id number] 00:00:00* Test Item Value Reference Range Interpretation Comme nts VITAMIN D, 25 OH (test code = 4958) 12 NG/ML Nicholas ChisholmCOMPREHENSIVE METABOLIC [id number] 00:00:00* Test Item Value Reference Range Interpretation Comme nts GLUCOSE (test code = 2217) 107 MG/DL BUN (test code = 2208) 13 MG/DL CREATININE (test code = 2214) 0.86 MG/DL eGFR (2020 CKD-EPI) (test co de = 49657) 79 ML/MIN/1.73 CALC BUN/CREAT (test code = 2235) 15 RATIO SODIUM (test code = 2231) 144 MEQ/L POTASSIUM (test code = 2228) 4.6 MEQ/L CHLORIDE (test code = 2215) 104 MEQ/L CARBON DIOXIDE (test code = 2206) 25 MEQ/L CALCIUM (test code = 2209) 9.6 MG/DL PROTEIN, TOTAL (test code = 2229) 7.5 G/DL ALBUMIN (test code = 2201) 4.6 G/DL CALC GLOBULIN (test code = 2240) 2.9 G/DL CALC A/G RATIO (test code = 2234) 1.6 RATIO BILIRUBIN, TOTAL (test code = 2207) <0.2 MG/DL ALKALINE PHOSPHATASE (test code = 2204) 69 U/L AST (test code = 2218) 20 U/L ALT (test code = 2219) 23 U/L Nicholas ChisholmLIPID [id number] 00:00:00* Test Item Value Reference Range Interpretation Comme nts CHOLESTEROL (test code = 2210) 214 MG/DL TRIGLYCERIDES (test code = 2232) 80 MG/DL HDL CHOLESTEROL (test code = 2220) 60 MG/DL CALC LDL CHOL (test code = 2237) 137 MG/DL RISK RATIO LDL/HDL (test cod e = 2238) 2.28 RATIO Nicholas ChisholmHEMOGLOBIN [id number] 00:00:00* Test Item Value Reference Range Interpretation Comme nts HEMOGLOBIN A1c (test code = 70188) 5.8 % Nicholas [id number] 00:00:00* Test Item Value Reference Range Interpretation Comme nts TSH, THIRD GENERATION (test code = 2821) 1.630 UIU/ML Nicholas ChisholmCBC W/AUTO [id number] 00:00:00* Test Item Value Reference Range Interpretation Comme nts WBC (test code = 1001) 4.4 K/UL RBC (test code = 1002) 5.26 M/UL HEMOGLOBIN (test code = 1003) 14.2 G/DL HEMATOCRIT (test code = 1004) 43.2 % MCV (test code = 1005) 82.1 fL MCH (test code = 1006) 27.0 PG MCHC (test code = 1007) 32.9 G/DL RDW (test code = 1038) 12.9 % NEUTROPHILS (test code = 1008) 54.0 % LYMPHOCYTES (test code = 1010) 35.2 % MONOCYTES (test code = 1011) 7.0 % EOSINOPHILS (test code = 1012) 2.7 % BASOPHILS (test code = 1013) 0.9 % IMMATURE GRANULOCYTES (test code = 1036) 0.2 % NUCLEATED RBCS (test code = 1065) 0.0 /100WBC'S PLATELET COUNT (test code = 1015) 191 K/UL ABSOLUTE NEUTROPHILS (test c ode = 1066) 2.39 K/UL ABSOLUTE LYMPHOCYTES (test c ode = 1067) 1.56 K/UL ABSOLUTE MONOCYTES (test cod e = 1068) 0.31 K/UL ABSOLUTE EOSINOPHILS (test c ode = 1040) 0.12 K/UL ABSOLUTE BASOPHILS (test cod e = 1069) 0.04 K/UL ABS IMMATURE GRANULOCYTES (t est code = 1020) 0.01 K/UL ABS NUCLEATED RBCS (test cod e = 54679) 0.00 K/UL Nicholas ChisholmVITAMIN D, 25 [id number] 00:00:00* Test Item Value Reference Range Interpretation Comme nts VITAMIN D, 25 OH (test code = 4958) 12 NG/ML Nicholas ChisholmHCV RNA, PCR [id number] 00:00:00* Test Item Value Reference Range Interpretation Comme nts HCV RNA, PCR QUANT (test code = 4571) NOT DETEC IU/ML HCV VIRAL LOG (test code = 50746) NOT DETEC LOGIU/ML Nicholas ChisholmHCV RNA, PCR [id number] 00:00:00* Test Item Value Reference Range Interpretation Comme nts HCV RNA, PCR QUANT (test code = 4571) NOT DETEC IU/ML HCV VIRAL LOG (test code = 62225) NOT DETEC LOGIU/ML Nicholas [id number] 00:00:00* Test Item Value Reference Range Interpretation Comme nts TSH, THIRD GENERATION (test code = 2821) 1.570 UIU/ML Nicholas ChisholmCOMPREHENSIVE METABOLIC [id number] 00:00:00* Test Item Value Reference Range Interpretation Comme nts GLUCOSE (test code = 2217) 118 MG/DL BUN (test code = 2208) 8 MG/DL CREATININE (test code = 2214) 0.75 MG/DL eGFR AMER. (test cod e = 78408) 104 ML/MIN/1.73 eGFR NON- AMER. (test code = 02793) 90 ML/MIN/1.73 CALC BUN/CREAT (test code = 2235) 11 RATIO SODIUM (test code = 2231) 142 MEQ/L POTASSIUM (test code = 2228) 4.2 MEQ/L CHLORIDE (test code = 2215) 105 MEQ/L CARBON DIOXIDE (test code = 2206) 22 MEQ/L CALCIUM (test code = 2209) 9.3 MG/DL PROTEIN, TOTAL (test code = 2229) 7.4 G/DL ALBUMIN (test code = 2201) 4.6 G/DL CALC GLOBULIN (test code = 2240) 2.8 G/DL CALC A/G RATIO (test code = 2234) 1.6 RATIO BILIRUBIN, TOTAL (test code = 2207) 0.3 MG/DL ALKALINE PHOSPHATASE (test code = 2204) 66 U/L AST (test code = 2218) 20 U/L ALT (test code = 2219) 18 U/L Nicholas ChisholmCBC W/AUTO [id number] 00:00:00* Test Item Value Reference Range Interpretation Comme nts WBC (test code = 1001) 5.9 K/UL RBC (test code = 1002) 4.75 M/UL HEMOGLOBIN (test code = 1003) 13.0 G/DL HEMATOCRIT (test code = 1004) 38.2 % MCV (test code = 1005) 80.4 fL MCH (test code = 1006) 27.4 PG MCHC (test code = 1007) 34.0 G/DL RDW (test code = 1038) 12.3 % NEUTROPHILS (test code = 1008) 62.3 % LYMPHOCYTES (test code = 1010) 27.5 % MONOCYTES (test code = 1011) 8.3 % EOSINOPHILS (test code = 1012) 1.7 % BASOPHILS (test code = 1013) 0.2 % PLATELET COUNT (test code = 1015) 190 K/UL Nicholas [id number] 00:00:00* Test Item Value Reference Range Interpretation Comme nts TSH, THIRD GENERATION (test code = 2821) 1.570 UIU/ML Nicholas ChisholmCOMPREHENSIVE METABOLIC [id number] 00:00:00* Test Item Value Reference Range Interpretation Comme nts GLUCOSE (test code = 2217) 118 MG/DL BUN (test code = 2208) 8 MG/DL CREATININE (test code = 2214) 0.75 MG/DL eGFR AMER. (test cod e = 69810) 104 ML/MIN/1.73 eGFR NON- AMER. (test code = 27079) 90 ML/MIN/1.73 CALC BUN/CREAT (test code = 2235) 11 RATIO SODIUM (test code = 2231) 142 MEQ/L POTASSIUM (test code = 2228) 4.2 MEQ/L CHLORIDE (test code = 2215) 105 MEQ/L CARBON DIOXIDE (test code = 2206) 22 MEQ/L CALCIUM (test code = 2209) 9.3 MG/DL PROTEIN, TOTAL (test code = 2229) 7.4 G/DL ALBUMIN (test code = 2201) 4.6 G/DL CALC GLOBULIN (test code = 2240) 2.8 G/DL CALC A/G RATIO (test code = 2234) 1.6 RATIO BILIRUBIN, TOTAL (test code = 2207) 0.3 MG/DL ALKALINE PHOSPHATASE (test code = 2204) 66 U/L AST (test code = 2218) 20 U/L ALT (test code = 2219) 18 U/L Nicholas ChisholmCBC W/AUTO [id number] 00:00:00* Test Item Value Reference Range Interpretation Comme nts WBC (test code = 1001) 5.9 K/UL RBC (test code = 1002) 4.75 M/UL HEMOGLOBIN (test code = 1003) 13.0 G/DL HEMATOCRIT (test code = 1004) 38.2 % MCV (test code = 1005) 80.4 fL MCH (test code = 1006) 27.4 PG MCHC (test code = 1007) 34.0 G/DL RDW (test code = 1038) 12.3 % NEUTROPHILS (test code = 1008) 62.3 % LYMPHOCYTES (test code = 1010) 27.5 % MONOCYTES (test code = 1011) 8.3 % EOSINOPHILS (test code = 1012) 1.7 % BASOPHILS (test code = 1013) 0.2 % PLATELET COUNT (test code = 1015) 190 K/UL Nicholas ChisholmHIV AB/AG COMBO RFLX [id number] 00:00:00* Test Item Value Reference Range Interpretation Comme nts HIV 1/2 4TH GEN, RFLX CONF ( test code = 3514) NON-REACTIVE Nicholas ChisholmPAP TEST, THINPREP, [id number] 00:00:00* Test Item Value Reference Range Interpretation Comme nts SOURCE: (test code = 8001) Cervical/Endocervical SLIDES: (test code = 8011) 1 LMP: (test code = 8021) SEE NOTE SPECIMEN ADEQUACY: (test code = 65291) (NOTE) INTERPRETATION: (test code = 16411) NILM/NO EPITH. ABNORMALITY;SEE BELOW OTHER COMMENTS: (test code = 8081) (NOTE) SLIP SHEETER: (test code = 8101) ASHTYN Morales(ASCP)IA C LOCATION: (test code = 37275) (NOTE) CPT: (test code = 8140) (NOTE) Nicholas ChisholmACUTE HEPATITIS [id number] 00:00:00* Test Item Value Reference Range Interpretation Comme nts HEPATITIS A IgM (test code = 45985) NON-REACTIVE HEPATITIS B CORE IgM (test c ode = 4644) NON-REACTIVE HEPATITIS B SURF AG (test co de = 2739) NON-REACTIVE HEPATITIS C ANTIBODY (test c ode = 4675) REACTIVE INTERPRETATION HEPATITIS A: (test code = 2552) (NOTE) INTERPRETATION HEPATITIS B: (test code = 66019) (NOTE) INTERPRETATION HEPATITIS C: (test code = 05266) (NOTE) Nicholas [id number] 00:00:00* Test Item Value Reference Range Interpretation Comme nts RPR RESULT (test code = 3501) NON-REACTIVE RPR TITER (test code = 3500) NOT INDIC. TITER Nicholas ChisholmHPV HIGH RISK WITH GENOTYPE, [id number] 00:00:00* Test Item Value Reference Range Interpretation Comme nts HPV HIGH RISK INTERP (test c ode = 76723) NEGATIVE HPV 16 (test code = 24761) NEGATIVE HPV 18 (test code = 10256) NEGATIVE HPV, HR, OTHER GENOTYPES (te st code = 36985) NEGATIVE Nicholas ChisholmHIV AB/AG COMBO RFLX [id number] 00:00:00* Test Item Value Reference Range Interpretation Comme nts HIV 1/2 4TH GEN, RFLX CONF ( test code = 3514) NON-REACTIVE Nicholas ChisholmGC AND CHLAMYDIA AMPLIFIED, [id number] 00:00:00* Test Item Value Reference Range Interpretation Comme nts GONORRHEA, TMA (test code = 87662) NEGATIVE CHLAMYDIA, TMA (test code = 27060) NEGATIVE Nicholas ChisholmACUTE HEPATITIS [id number] 00:00:00* Test Item Value Reference Range Interpretation Comme nts HEPATITIS A IgM (test code = 72341) NON-REACTIVE HEPATITIS B CORE IgM (test c ode = 4644) NON-REACTIVE HEPATITIS B SURF AG (test co de = 2739) NON-REACTIVE HEPATITIS C ANTIBODY (test c ode = 4675) REACTIVE INTERPRETATION HEPATITIS A: (test code = 2552) (NOTE) INTERPRETATION HEPATITIS B: (test code = 62952) (NOTE) INTERPRETATION HEPATITIS C: (test code = 46779) (NOTE) Nicholas ChisholmPAP TEST, THINPREP, [id number] 00:00:00* Test Item Value Reference Range Interpretation Comme nts SOURCE: (test code = 8001) Cervical/Endocervical SLIDES: (test code = 8011) 1 LMP: (test code = 8021) SEE NOTE SPECIMEN ADEQUACY: (test code = 80278) (NOTE) INTERPRETATION: (test code = 87891) NILM/NO EPITH. ABNORMALITY;SEE BELOW OTHER COMMENTS: (test code = 8081) (NOTE) SLIP SHEETER: (test code = 8101) ASHTYN Morales(ASCP)IA C LOCATION: (test code = 18731) (NOTE) CPT: (test code = 8140) (NOTE) Nicholas ChisholmHPV HIGH RISK WITH GENOTYPE, [id number] 00:00:00* Test Item Value Reference Range Interpretation Comme nts HPV HIGH RISK INTERP (test c ode = 13975) NEGATIVE HPV 16 (test code = 55967) NEGATIVE HPV 18 (test code = 30002) NEGATIVE HPV, HR, OTHER GENOTYPES (te st code = 32550) NEGATIVE Nicholas [id number] 00:00:00* Test Item Value Reference Range Interpretation Comme nts RPR RESULT (test code = 3501) NON-REACTIVE RPR TITER (test code = 3500) NOT INDIC. TITER Nicholas ChisholmGC AND CHLAMYDIA AMPLIFIED, [id number] 00:00:00* Test Item Value Reference Range Interpretation Comme nts GONORRHEA, TMA (test code = 73432) NEGATIVE CHLAMYDIA, TMA (test code = 74737) NEGATIVE Nicholas Chisholm3D SCR BREEZY BILAT W/CAD3D SCR BREEZY BILAT W/CAD3D SCR BREEZY BILAT W/CAD3D SCR BREEZY BILAT W/CADPOC, COVID 19 Antigen + Flu by SofiaPOC, COVID 19 Antigen + Flu by Renetta Notes Date/Time Note Provider Source Nicholas Chisholm [facility]2024-07-25 00:00:00 Plan Activity triamcinolone acetonide 0.1 % topical cr eam bid 2020-04-22 Weekly counseling. 2020-05-27 RTC on annual exam SBE If 40 or greater, schedule 1-2 year MMG as indicated If 50 or greater, schedule colonoscopy or give Heme card. Recommend Ca 2+ and Vitamin D if menopausal DEXA at 65 and greater Immunizations as age indicated Annual well adult with PCP as indicated STI labs as indicated Screening labs as indicated Await diagnostic results 2020-06-24 Gonorrhea Chlamydia HIV Plan pending lab results Safe sex education provided 2023-07-14 Weekly counseling. 2020-06-24 weight and height disproport ionate Therapeutic lifestyle changes required 2023-07-14 Exercise 15-30 minutes a day for 5 days of a week. 2024-01-27 Avoid processed foods. Eat more fruits a nd vegetables. 2024-01-27 referral for mammogram made 2021-06-27 UTD on Pap due in 4 years RTC on annual exam SBE monthly If 40 or greater, schedule 1-2 year MMG as indicated If 50 or greater, schedule colonoscopy or give Heme card. Recommend Ca 2+ and Vitamin D if menopausal DEXA at 65 and greater Immunizations as age indicated Annual well adult with PCP as indicated STI labs as indicated Screening labs as indicated Await diagnostic results 2021-06-27 Exercise 15 to 30 minutes 5 times a week Eat more fruits and vegetables. 2024-01-27 LIPID-fasting 2022-01-29 VIT D 2022-01-29 CBC 2022-01-29 TSH 2022-01-29 CMP A1C 2022-01-29 TDAP VIS FORM provided. s/e due to administration of vaccines explained to pt PT will do shingles at [facility] 2022-01-29 diclofenac 1 % topical gel take as direc [place] 2022-05-12 diclofenac 1 % topical gel take as direc [place] 2022-05-12 valacyclovir 1 g [address] for 7 to 10 abstain for sexual activity RTC if symptoms worsen or persist 2023-07-14 Culture lesion >>> lysed hea ling lesion and swabbed interior await results RTC 1-2 weeks for follow-up 2024-01-27 Discussed different anti obe sity meds reviewed s/e of each med PT WILL START QSYMIA TAKE DIRECTED : will also call as lomaira and topamax and determine which is cheaper Discussed about GLP 1 agonist Discussed CHN weight loss protocol visits Pt will do research and let us know what anti obesity meds to start 2024-06-15 [facility]
[2024-07-03] MEDS ORDERED: IPRATROPIUM BROM 0.5MG/2.5ML ONE (13:55)
[2024-07-03] MEDS ORDERED: ALBUTEROL 2.5 MG/3 ML NEB SOL ONE (13:55)
--- NOTE | 2024-07-03 14:26 | RAD REPORT ---
EXAM DESCRIPTION: Jeff Single View07/03/2024 2:06 pm CLINICAL HISTORY: sob COMPARISON: 2012 FINDINGS: Small calcified granuloma left lung The lungs appear clear of acute infiltrate. The heart is normal size IMPRESSION: No acute abnormalities displayed
[2024-07-03 14:37] LABS: Absolute Eosinophils 0.1 K/uL (0-0.5); Absolute Lymphocytes (CBC) 1.9 K/uL (0.7-4.9); Absolute Monocytes 0.4 K/uL (0.1-1.3); Absolute Neutrophil 3.4 K/uL (1.8-8.0); Basophils % 0.5 % (0-1.3); Eosinophils % 1.3 % (0-4.4); Hematocrit 39.5 % (36.0-45.0); Hemoglobin 12.9 g/dL (12.0-15.0); MCH 27.1 pg (27.0-35.0); MCHC 32.7 g/dL (32.0-36.0); MCV 82.8 fL (80-100); MPV 7.2 fL (7.6-11.3); Monocytes % 7.3 % (3.3-12.3); Neutrophils % 57.9 % (41.7-73.7); Nucleated Red Blood Cells % 0.2 % (0-0); Platelets 203 thou/uL (152-406); RBC Red Blood Cell Count 4.77 M/uL (3.86-4.86); Red Cell Distribution Width 13.1 % (12.1-15.2)
[2024-07-03 14:57] LABS: ALT/SGPT 32 U/L (13-56); AST/SGOT 16 U/L (15-37); Albumin 3.8 g/dL (3.4-5.0); Albumin/Globulin Ratio 1.1 (1.1-1.8); Alkaline Phosphatase 61 U/L (45-117); BUN Blood Urea Nitrogen 13 mg/dL (7-18); Bicarbonate 26 mEq/L (21-32); Bilirubin Total 0.3 mg/dL (0.2-1.0); Globulin 3.5 g/dL (2.3-3.5); Glomerular Filtration Rate 79 ml/min (=/>90); Glucose Level 86 mg/dL (74-106); Magnesium 2.2 mg/dL (1.6-2.4); NT PRO-BNP 34 pg/mL (<125); Protein, Total 7.3 g/dL (6.4-8.2); Sodium Level 141 mEq/L (136-145); Troponin High Sensitivity 3.3 pg/mL (<58.9)
[2024-07-03 14:58] LABS: Bilirubin Direct < 0.2 mg/dL (0-0.2); Bilirubin Indirect, Calculated 0.1 mg/dL (0.2-0.8)
--- NOTE | 2024-07-03 15:22 | ER ---
Nurse's Notes [facility] Name: Paulina Saravia Age: 58 yrs Sex: Female : 1965 Arrival Date: 07/03/2024 Time: 13:35 Bed 7 Private MD: Diagnosis: Dyspnea Presentation: 07/03 13:47 Chief complaint: Patient states: Shortness of breath onset Wednesday. pt was seen at [facility] and was told to stop Topamax and Lomaira that was started 3 weeks ago. Pt denies any chest pain. Coronavirus screen: Client denies travel out of the [place] in the last 14 days. At this time, the client does not indicate any symptoms associated with coronavirus-19. Ebola Screen: Patient denies travel to an Ebola-affected area in the 21 days before illness onset. No symptoms or risks identified at this time. Initial Sepsis Screen: Does the patient meet any 2 criteria? No. Patient's initial sepsis screen is negative. Does the patient have a suspected source of infection? No. Patient's initial sepsis screen is negative. Risk Assessment: Do you want to hurt yourself or someone else? Patient reports no desire to harm self or others. Onset of symptoms was July 03, 2024. 13:47 Method Of Arrival: Ambulatory 10 13:47 Acuity: KACEY 2 10 Triage Assessment: 13:48 General: Appears in no apparent distress. uncomfortable. General: Behavior is calm, cm10 cooperative. Pain: Denies pain. Neuro: No deficits noted. Level of Consciousness is awake, alert, obeys commands, Oriented to person, place, time, situation, Appropriate for age. 14:38 Respiratory: Onset: The symptoms/episode began/occurred since Wednesday, the patient has tl4 mild shortness of breath. Historical: - Allergies: 13:48 No Known Allergies; 10 - Home Meds: 14:31 metformin 500 mg Oral tablet daily [Active]; Qsymia 3.75-23 mg oral Capsule, ER tl4 Multiphase 24 hr daily [Active]; topiramate 25 mg oral tablet daily [Active]; Lomaira 8 mg oral tablet 0.5 tabs daily [Active]; benztropine 0.5 mg Oral tablet [Active]; omeprazole 40 mg Oral capsule,delayed release (e.c.) [Active]; hydroxyzine HCl 25 mg Oral tablet [Active]; triamcinolone acetonide 0.1 % Topical cream [Active]; ziprasidone HCl 40 mg oral capsule [Active]; meloxicam 15 mg oral tablet [Active]; - PMHx: 13:48 Anxiety; Pre-Diabetic; cm10 - PSHx: 13:48 breast biopsy; cm10 - Immunization history:: Adult Immunizations up to date. - Infectious Disease History:: Denies. - Social history:: Smoking status: unknown. - Family history:: not pertinent. Screenin:37 [facility] ED Fall Risk Assessment (Adult) History of falling in the last 3 months, tl4 including since admission No falls in past 3 months (0 pts) Confusion or Disorientation No (0 pts) Intoxicated or Sedated No (0 pts) Impaired Gait No (0 pts) Mobility Assist Device Used No (0 pt) Altered Elimination No (0 pt) Score/Fall Risk Level 0 - 2 = Low Risk Oriented to surroundings, Maintained a safe environment, Educated pt \T\ family on fall prevention, incl call for assistance when getting out of bed, Assessed \T\ reinforced patient's understanding of fall precautions. Abuse screen: Denies threats or abuse. Denies injuries from another. Nutritional screening: No deficits noted. Tuberculosis screening: No symptoms or risk factors identified. Assessment: 14:28 General: Appears in no apparent distress. Behavior is calm, cooperative. Pain: Denies tl4 pain. Neuro: Level of Consciousness is awake, alert, obeys commands, Oriented to person, place, time, situation, Moves all extremities. Full function Speech is normal, Facial symmetry appears normal. Cardiovascular: Denies chest pain, Rhythm is sinus rhythm. Respiratory: Reports shortness of breath Airway is patent Respiratory effort is even, unlabored, Respiratory pattern is regular, symmetrical, Breath sounds are clear bilaterally. GI: No signs and/or symptoms were reported involving the gastrointestinal system. : No signs and/or symptoms were reported regarding the genitourinary system. EENT: No signs and/or symptoms were reported regarding the EENT system. Derm: No signs and/or symptoms reported regarding the dermatologic system. Musculoskeletal: No signs and/or symptoms reported regarding the musculoskeletal system. Vital Signs: 13:47 BP 146 / 88; Pulse 89; Resp 24; Temp 98.5; Pulse Ox 98% on R/A; Weight 71.21 kg; Height cm10 5 ft. 2 in. ; Pain 0/10; 14:00 BP 121 / 75; Pulse 80; Resp 20; Pulse Ox 99% on R/A; Pain 0/10; tl4 15:40 BP 117 / 56; Pulse 90; Resp 21; Temp 98.3(O); Pulse Ox 97% on R/A; Pain 0/10; tl4 13:47 Body Mass Index 28.72 (71.21 kg, 157.48 cm) cm10 13:47 Pain Scale: Adult cm10 14:00 Pain Scale: Adult tl4 15:40 Pain Scale: Adult tl4 Vitals: 14:00 Cardiac Rhythm Assessment Regular Sinus rhythm. tl4 ED Course: 13:38 Patient arrived in ED. im 13:38 Rodri Thompson MD is Attending Physician. rt 13:48 Triage completed. cm10 13:49 Arm band placed on Patient placed in an exam room, on a stretcher, on pulse oximetry. cm10 14:08 XRAY Chest (1 view) In Process Unspecified. EDMS 14:19 Basic Metabolic Panel Sent. tl4 14:19 CBC with Diff Sent. tl4 14:19 LFT's Sent. tl4 14:19 Magnesium Sent. tl4 14:19 NT PRO-BNP Sent. tl4 14:19 Troponin HS Sent. tl4 14:19 Initial lab(s) drawn, by me, sent to lab. EKG done, by ED staff, reviewed by Rodri Thompson MD. Inserted saline lock: 22 gauge in right forearm, using aseptic technique. Blood collected. Flushed with 10 mL NS. 14:38 Patient has correct armband on for positive identification. Placed in gown. Bed in low tl4 position. Call light in reach. Side rails up X 1. Adult w/ patient. Provided Education on: ed process, call tao. Client placed on continuous cardiac and pulse oximetry monitoring. NIBP monitoring applied. environmental monitoring technician on. Door closed. Noise minimized. Lights dimmed. Moved to private room. Warm blanket given. Pillow given. 14:39 No provider procedures requiring assistance completed. tl4 15:40 IV discontinued, intact, bleeding controlled, No redness/swelling at site. Pressure tl4 dressing applied. Administered Medications: 14:18 Drug: DuoNeb Nebulize (3:1) (2.5 mg - 0.5 mg) 3 ml Nebulizer once {Note: via nebulizer tl4 with mask, oxygen at 8 lpm.} Route: Nebulizer; 15:55 Follow up: Response: No adverse reaction tl4 Medication: 14:37 VIS not applicable for this client. tl4 Outcome: 15:21 Discharge ordered by . rt 15:40 Discharged to home ambulatory, tl4 15:40 Condition: stable 15:40 Discharge instructions given to patient, Instructed on discharge instructions, follow up and referral plans. Demonstrated understanding of instructions, follow-up care, 15:54 Patient left the ED. tl4 Signatures: Dispatcher [employer] EDMS Rodri Thompson MD MD rt Mallory Romero Clarissa, RN RN cm10 Moses Apple RN RN tl4
--- NOTE | 2024-07-03 15:22 | EDPHYS ---
Physician Documentation [facility] Name: Paulina Saravia Age: 58 yrs Sex: Female : 1965 Arrival Date: 07/03/2024 Time: 13:35 Bed 7 Private MD: ED Physician Rodri Thompson HPI: 07/03 14:04 This 58 yrs old Female presents to ER via Ambulatory with complaints of rt Shortness Of Breath. 14:04 Patient started taking Topamax, phentermine about 3 weeks ago. States that since rt Wednesday, she has been short of breath. Is not worse with exertion. She denies any chest pain. Denies other acute complaints at this time, symptoms are moderate in severity, no other aggravating or alleviating factors.. Historical: - Allergies: 13:48 No Known Allergies; cm10 - Home Meds: 14:31 metformin 500 mg Oral tablet daily [Active]; Qsymia 3.75-23 mg oral Capsule, ER tl4 Multiphase 24 hr daily [Active]; topiramate 25 mg oral tablet daily [Active]; Lomaira 8 mg oral tablet 0.5 tabs daily [Active]; benztropine 0.5 mg Oral tablet [Active]; omeprazole 40 mg Oral capsule,delayed release (e.c.) [Active]; hydroxyzine HCl 25 mg Oral tablet [Active]; triamcinolone acetonide 0.1 % Topical cream [Active]; ziprasidone HCl 40 mg oral capsule [Active]; meloxicam 15 mg oral tablet [Active]; - PMHx: 13:48 Anxiety; Pre-Diabetic; cm10 - PSHx: 13:48 breast biopsy; cm10 - Immunization history:: Adult Immunizations up to date. - Infectious Disease History:: Denies. - Social history:: Smoking status: unknown. - Family history:: not pertinent. ROS: 14:04 Constitutional: Negative for fever, chills, and weight loss, Cardiovascular: Negative rt for chest pain, palpitations, and edema, Abdomen/GI: Negative for abdominal pain, nausea, vomiting, diarrhea, and constipation, MS/Extremity: Negative for injury and deformity, Skin: Negative for injury, rash, and discoloration, Neuro: Negative for headache, weakness, numbness, tingling, and seizure, 14:04 Respiratory: Positive for shortness of breath, Negative for cough, Exam: 14:04 Constitutional: This is a well developed, well nourished patient who is awake, alert, rt and in no acute distress. Head/Face: Normocephalic, atraumatic. Chest/axilla: Normal chest wall appearance and motion. Nontender with no deformity. No lesions are appreciated. Cardiovascular: Regular rate and rhythm with a normal S1 and S2. No gallops, murmurs, or rubs. Normal PMI, no JVD. No pulse deficits. Respiratory: Lungs have equal breath sounds bilaterally, clear to auscultation and percussion. No rales, rhonchi or wheezes noted. No increased work of breathing, no retractions or nasal flaring. Abdomen/GI: Soft, non-tender, with normal bowel sounds. No distension or tympany. No guarding or rebound. No evidence of tenderness throughout. Skin: Warm, dry with normal turgor. Normal color with no rashes, no lesions, and no evidence of cellulitis. MS/ Extremity: Pulses equal, no cyanosis. Neurovascular intact. Full, normal range of motion. Neuro: Awake and alert, GCS 15, oriented to person, place, time, and situation. Cranial nerves II-XII grossly intact. Motor strength 5/5 in all extremities. Sensory grossly intact. Cerebellar exam normal. Normal gait. 14:44 ECG was reviewed by the Attending Physician. rt Vital Signs: 13:47 BP 146 / 88; Pulse 89; Resp 24; Temp 98.5; Pulse Ox 98% on R/A; Weight 71.21 kg; Height cm10 5 ft. 2 in. ; Pain 0/10; 14:00 BP 121 / 75; Pulse 80; Resp 20; Pulse Ox 99% on R/A; Pain 0/10; tl4 15:40 BP 117 / 56; Pulse 90; Resp 21; Temp 98.3(O); Pulse Ox 97% on R/A; Pain 0/10; tl4 13:47 Body Mass Index 28.72 (71.21 kg, 157.48 cm) cm10 13:47 Pain Scale: Adult cm10 14:00 Pain Scale: Adult tl4 15:40 Pain Scale: Adult tl4 MDM: 13:41 Patient medically screened. rt 20:17 Differential diagnosis: Medication reaction, bronchospasm, pneumonia. Data reviewed: rt vital signs, nurses notes, lab test result(s), EKG, radiologic studies. Consideration of Admission/Observation Escalation of care including admission/observation considered. Stable vital signs, symptoms resolved with breathing treatment in the ED, unremarkable labs, EKG, patient stable for outpatient care, return precautions discussed.. I considered the following discharge prescriptions or medication management in the emergency department Medications were administered in the Emergency Department. See MAR. Independent interpretation of the following test(s) in the Emergency Department X-Ray: My interpretation is No pneumonia send amount of rotation of x-ray images. Test considered but Not performed: CT: Low suspicion for pulmonary embolus, CT angiogram not indicated. Care significantly affected by the following chronic conditions: Prediabetes. Counseling: I had a detailed discussion with the patient and/or guardian regarding the historical points, exam findings, and any diagnostic results supporting the discharge/admit diagnosis, lab results, radiology results, the need for outpatient follow up, to return to the emergency department if symptoms worsen or persist or if there are any questions or concerns that arise at home. Response to treatment: the patient's symptoms have resolved after treatment. 07/03 13:49 Order name: Basic Metabolic Panel; Complete Time: 15:00 rt 07/03 13:49 Order name: CBC with Diff; Complete Time: 15:00 rt 07/03 13:49 Order name: LFT's; Complete Time: 15:00 rt 07/03 13:49 Order name: Magnesium; Complete Time: 15:00 rt 07/03 13:49 Order name: NT PRO-BNP; Complete Time: 15:00 rt 07/03 13:49 Order name: Troponin HS; Complete Time: 15:00 rt 07/03 13:49 Order name: XRAY Chest (1 view); Complete Time: 14:32 rt 07/03 13:49 Order name: EKG; Complete Time: 13:49 rt 07/03 13:49 Order name: Cardiac monitoring; Complete Time: 14:18 rt 07/03 13:49 Order name: EKG - Nurse/Tech; Complete Time: 14:19 rt 07/03 13:49 Order name: IV Saline Lock; Complete Time: 14:19 rt 07/03 13:49 Order name: Labs collected and sent; Complete Time: 14:19 rt 07/03 13:49 Order name: O2 Per Protocol; Complete Time: 14:19 rt 07/03 13:49 Order name: O2 Sat Monitoring; Complete Time: 14:19 rt EC:44 Rate is 80 beats/min. Rhythm is regular, Normal Sinus Rhythm with No ectopy. QRS [place] rt is Normal. [place] interval is normal. QRS interval is normal. QT interval is normal. No Q waves. T waves are Normal. No ST changes noted. Interpreted by me. Administered Medications: 14:18 Drug: DuoNeb Nebulize (3:1) (2.5 mg - 0.5 mg) 3 ml Nebulizer once {Note: via nebulizer tl4 with mask, oxygen at 8 lpm.} Route: Nebulizer; 15:55 Follow up: Response: No adverse reaction tl4 Disposition Summary: 07/03/24 15:21 Discharge Ordered Notes: Location: Home rt Problem: new rt Symptoms: have improved rt Condition: Stable rt Diagnosis - Dyspnea rt Followup: rt - With: Private Physician - When: 2 - 3 days - Reason: Discharge Instructions: - Discharge Summary Sheet rt - Shortness of Breath, Adult rt Forms: - Medication Reconciliation Form rt - Antibiotic Education rt - Prescription Opioid Use rt - Patient Portal Instructions rt - Leadership Thank You Letter rt Prescriptions: - albuterol sulfate 90 mcg/actuation Inhalation HFA Aerosol Inhaler - inhale 3 puff INHALATION route every 4 to 6 hours as needed for shortness of rt breath; 2 Each; Refills: 0, Product Selection Permitted Signatures: Dispatcher [employer] EDMS Rodri Thompson MD MD rt Tania Frazier RN RN cm10 Moses Apple RN RN tl4 Corrections: (The following items were deleted from the chart) 13:49 13:49 BASIC METABOLIC PANEL+C.LAB.BRZ ordered. EDMS EDMS 13:49 13:49 CBC+H.LAB.BRZ ordered. EDMS EDMS 13:49 13:49 HEPATIC FUNCTION+C.LAB.BRZ ordered. EDMS EDMS 13:49 13:49 MAGNESIUM+C.LAB.BRZ ordered. EDMS EDMS 13:49 13:49 PROBNP+C.LAB.BRZ ordered. EDMS EDMS 13:49 13:49 Troponin High Sensitivity+C.LAB.BRZ ordered. EDMS EDMS
[2024-07-03 16:26] VITALS: BP 117/56; TEMP 98.3; O2SAT 97
== END 2024-07-03 15:54 | disposition home or self-care (01) ==
LOC: ER 13:35
DX: R06.00 Dyspnea, unspecified (principal); F41.9 Anxiety disorder, unspecified
CPT/HCPCS: 93005; 85025; 80048; 36415; 83735; 80076; 84484; 83880; 71045; 94640; 99285; J7613; J7644

== ENCOUNTER 2024-07-07 13:19 | Emergency (ER) | payer OTHER ==
[2024-07-07] MEDS ORDERED: predniSONE 20 MG TAB ONE (14:37)
[2024-07-07] MEDS ORDERED: ALBUTEROL 2.5 MG/3 ML NEB SOL ONE (14:37)
[2024-07-07 15:20] LABS: Absolute Eosinophils 0.1 K/uL (0-0.5); Absolute Monocytes 0.5 K/uL (0.1-1.3); Basophils % 0.4 % (0-1.3); Eosinophils % 1.1 % (0-4.4); Hematocrit 39.6 % (36.0-45.0); Hemoglobin 13.1 g/dL (12.0-15.0); MCH 27.2 pg (27.0-35.0); MCHC 32.9 g/dL (32.0-36.0); MCV 82.4 fL (80-100); MPV 7.1 fL (7.6-11.3); Monocytes % 7.3 % (3.3-12.3); Neutrophils % 61.2 % (41.7-73.7); Nucleated Red Blood Cells % 0.1 % (0-0); Platelets 199 thou/uL (152-406); RBC Red Blood Cell Count 4.81 M/uL (3.86-4.86)
[2024-07-07 15:31] LABS: Anion Gap 5.6 mEq/L (5.0-15.0); Magnesium 2.4 mg/dL (1.6-2.4); Potassium 3.6 mEq/L (3.5-5.1)
[2024-07-07 15:45] LABS: SARS-CoV-2 Antigen CONTROL BLUE LINE VIS/BG OK; SARS-CoV-2 Antigen Rapid Res Negative (Negative)
--- NOTE | 2024-07-07 17:17 | RAD REPORT ---
EXAM DESCRIPTION: RADChest Single View07/07/2024 4:26 pm CLINICAL HISTORY: SOB COMPARISON: Chest Single View dated 07/03/2024; CHEST PA AND LAT 2 VIEW dated 02/27/2013; CHEST SINGLE VIEW dated 02/11/2005 TECHNIQUE: Portable AP view of the chest. FINDINGS: The lungs are clear. No pneumothorax or effusion. The cardiomediastinal contours are unre markable. IMPRESSION: No acute cardiopulmonary process.
--- NOTE | 2024-07-07 17:18 | ER ---
Nurse's Notes [facility] Name: Paulina Saravia Age: 58 yrs Sex: Female : 1965 Arrival Date: 07/07/2024 Time: 13:19 Bed 16 Private MD: Diagnosis: Shortness of breath;Allergic rhinitis, unspecified Presentation: 07/07 13:33 Chief complaint: Patient states: Pt c/o intermittent nose bleed since last night. Pt tl4 c/o ongoing shortness of breath from weight loss medication that she discontinued last Wednesday. Pt denies cough, fever/chills, nausea. Coronavirus screen: shortness of breath. Ebola Screen: No symptoms or risks identified at this time. Initial Sepsis Screen: Does the patient meet any 2 criteria? No. Patient's initial sepsis screen is negative. Does the patient have a suspected source of infection? No. Patient's initial sepsis screen is negative. Risk Assessment: Do you want to hurt yourself or someone else? Patient reports no desire to harm self or others. Onset of symptoms was July 06, 2024. 13:33 Method Of Arrival: Ambulatory tl4 13:33 Acuity: KACEY 3 tl4 Triage Assessment: 13:40 General: Appears in no apparent distress. Behavior is calm, cooperative. Pain: Denies tl4 pain. EENT: Reports intermittent nose bleed. Neuro: Level of Consciousness is awake, alert, obeys commands, Oriented to person, place, time, situation, Moves all extremities. Full function Gait is steady, Speech is normal. Cardiovascular: Reports shortness of breath, Denies chest pain, diaphoresis, fatigue, lightheadedness, nausea, palpitations, syncope, vomiting, Capillary refill < 3 seconds Patient's skin is warm and dry. Respiratory: Reports Onset: The symptoms/episode began/occurred last Wednesday, the patient reports symptoms have resolved. GI: No signs and/or symptoms were reported involving the gastrointestinal system. : No signs and/or symptoms were reported regarding the genitourinary system. Derm: No signs and/or symptoms reported regarding the dermatologic system. Musculoskeletal: No signs and/or symptoms reported regarding the musculoskeletal system. Historical: - Allergies: 13:38 No Known Allergies; tl4 - Home Meds: 13:38 benztropine 0.5 mg Oral tablet [Active]; hydroxyzine HCl 25 mg Oral tablet [Active]; tl4 meloxicam 15 mg Oral tablet [Active]; metformin 500 mg Oral tablet daily [Active]; omeprazole 40 mg Oral capsule [Active]; topiramate 25 mg Oral tablet daily [Active]; triamcinolone acetonide 0.1 % Topical cream [Active]; ziprasidone HCl 40 mg Oral capsule [Active]; - PMHx: 13:38 Anxiety; pre-diabetic; tl4 - PSHx: 13:38 breast biopsy; tl4 - Immunization history:: Adult Immunizations unknown. - Infectious Disease History:: Denies. - Social history:: Smoking status: Patient denies any tobacco usage or history of. Screenin:45 [facility] ED Fall Risk Assessment (Adult) History of falling in the last 3 months, rs5 including since admission No falls in past 3 months (0 pts) Confusion or Disorientation No (0 pts) Intoxicated or Sedated No (0 pts) Impaired Gait No (0 pts) Mobility Assist Device Used No (0 pt) Altered Elimination No (0 pt) Score/Fall Risk Level 0 - 2 = Low Risk Oriented to surroundings, Maintained a safe environment. Abuse screen: Denies threats or abuse. Nutritional screening: On. Nutritional screening: No deficits noted. Tuberculosis screening: No symptoms or risk factors identified. Assessment: 13:45 General: Appears in no apparent distress. comfortable, Behavior is calm, cooperative. rs5 Pain: Denies pain. Neuro: Level of Consciousness is awake, alert, obeys commands, Oriented to person, place, time, situation. Cardiovascular: Patient's skin is warm and dry. Rhythm is regular. Respiratory: Reports shortness of breath Airway is patent Respiratory effort is even, unlabored, Respiratory pattern is regular, symmetrical. GI: Abdomen is round non-distended, Abd is soft and non tender X 4 quads. : No signs and/or symptoms were reported regarding the genitourinary system. EENT: Reports pt states "my nose was bleeding a bit earlier today" no active bleeding noted. Derm: Skin is intact, Skin is pink, warm \\T\\ dry. Musculoskeletal: Range of motion: intact in all extremities. 14:41 Reassessment: Patient and/or family updated on plan of care and expected duration. Pain rs5 level reassessed. Patient is alert, oriented x 3, equal unlabored respirations, skin warm/dry/pink. 15:55 Reassessment: No changes from previously documented assessment. rs5 17:01 Reassessment: Patient and/or family updated on plan of care and expected duration. Pain rs5 level reassessed. Patient is alert, oriented x 3, equal unlabored respirations, skin warm/dry/pink. Vital Signs: 13:33 BP 146 / 81; Pulse 99; Resp 16; Temp 97.9(TE); Pulse Ox 98% on R/A; Weight 74.39 kg; tl4 Height 5 ft. 4 in. ; Pain 0/10; 15:55 BP 139 / 77; Pulse 80; Resp 17; Pulse Ox 98% on R/A; rs5 17:25 BP 133 / 78; Pulse 77; Resp 17; Pulse Ox 98% on R/A; rs5 13:33 Body Mass Index 28.15 (74.39 kg, 162.56 cm) tl4 13:33 Pain Scale: Adult tl4 ED Course: 13:23 Patient arrived in ED. im 13:25 Adrien Polk PA is PHCP. cp 13:25 Rashi Barrett MD is Attending Physician. cp 13:38 Triage completed. tl4 13:42 Arm band placed on right wrist. tl4 13:45 Patient has correct armband on for positive identification. Placed in gown. Bed in low rs5 position. Call light in reach. Side rails up X2. 13:45 No provider procedures requiring assistance completed. rs5 14:28 Edmond Plunkett, RN is Primary Nurse. rs5 16:28 XRAY Chest (1 view) In Process Unspecified. EDMS 17:35 Inserted saline lock: 20 gauge in left antecubital area, using aseptic technique. Blood rs5 collected. Flushed with 10 mL NS. 17:40 IV discontinued, intact, bleeding controlled, No redness/swelling at site. Pressure rs5 dressing applied. Administered Medications: 13:55 Drug: Albuterol Inhalation 2.5 mg Inhalation once Route: Inhalation; rs5 14:20 Follow up: Response: No adverse reaction rs5 13:55 Drug: predniSONE PO 60 mg PO once Route: PO; rs5 15:01 Follow up: Response: No adverse reaction rs5 Medication: 15:56 VIS not applicable for this client. rs5 Outcome: 17:17 Discharge ordered by . cp 17:40 Patient left the ED. rs5 17:40 Discharged to home ambulatory, with family, rs5 17:40 Condition: stable 17:40 Discharge instructions given to patient, family, Instructed on discharge instructions, follow up and referral plans. medication usage, Demonstrated understanding of instructions, follow-up care, medications, Prescriptions given X 3, Signatures: Dispatcher [employer] EDMS Adrien Polk PA PA cp Sotelo, Ricky RN RN rs5 Mallory Romero Toni, RN RN tl4 Corrections: (The following items were deleted from the chart) 15:25 14:55 Albuterol Inhalation 2.5 mg Inhalation rs5 rs5 15:55 13:45 EENT: No signs and/or symptoms were reported regarding the EENT system. rs5 rs5 17:52 17:50 Patient left the ED. rs5 rs5
--- NOTE | 2024-07-07 17:18 | EDPHYS ---
Physician Documentation [facility] Name: Paulina Saravia Age: 58 yrs Sex: Female : 1965 Arrival Date: 07/07/2024 Time: 13:19 Bed 16 Private MD: ED Physician Rashi Barrett HPI: 07/07 13:50 This 58 yrs old Female presents to ER via Ambulatory with complaints of cp Breathing Difficulty, Nose Bleed. 13:50 The patient has shortness of breath at rest. cp 13:50 Onset: The symptoms/episode began/occurred continued since last visit 4 days ago. cp prescribed inhaler w/o improvement. denies chest pain, denies cough, denies fever. c/o nose bleed yesterday. Associated signs and symptoms: Pertinent negatives: non-productive cough, productive cough. Historical: - Allergies: 13:38 No Known Allergies; tl4 - Home Meds: 13:38 benztropine 0.5 mg Oral tablet [Active]; hydroxyzine HCl 25 mg Oral tablet [Active]; tl4 meloxicam 15 mg Oral tablet [Active]; metformin 500 mg Oral tablet daily [Active]; omeprazole 40 mg Oral capsule [Active]; topiramate 25 mg Oral tablet daily [Active]; triamcinolone acetonide 0.1 % Topical cream [Active]; ziprasidone HCl 40 mg Oral capsule [Active]; - PMHx: 13:38 Anxiety; pre-diabetic; tl4 - PSHx: 13:38 breast biopsy; tl4 - Immunization history:: Adult Immunizations unknown. - Infectious Disease History:: Denies. - Social history:: Smoking status: Patient denies any tobacco usage or history of. ROS: 13:55 Constitutional: Negative for body aches, chills, fever, poor PO intake, cp 13:55 Eyes: Negative for injury, pain, redness, and discharge, cp 13:55 ENT: Negative for drainage from ear(s), ear pain, sore throat, difficulty swallowing, difficulty handling secretions, active nose bleed, 13:55 Cardiovascular: Negative for chest pain, edema, palpitations, 13:55 Respiratory: Positive for shortness of breath, Negative for cough, wheezing, 13:55 Abdomen/GI: Negative for abdominal pain, vomiting, diarrhea, constipation, 13:55 Neuro: Negative for altered mental status, dizziness, headache, loss of consciousness, syncope, weakness, 13:55 All other systems are negative, Exam: 14:00 Constitutional: The patient appears in no acute distress, alert, awake, cp non-diaphoretic, non-toxic, well developed, well nourished, 14:00 Head/Face: Normocephalic, atraumatic. cp 14:00 Eyes: Periorbital structures: appear normal, Conjunctiva: normal, no exudate, no injection, Sclera: no appreciated abnormality, Lids and lashes: appear normal, bilaterally, 14:00 ENT: External ear(s): are unremarkable, Nose: External nose: no obvious acute abnormality, Nasal mucosa: dry, mild rhinorrhea, Mouth: Lips: moist, Oral mucosa: pink and intact, moist, Posterior pharynx: Airway: no evidence of obstruction, patent, 14:00 Neck: ROM/movement: is normal, is supple, without pain, no range of motions limitations, 14:00 Chest/axilla: Inspection: normal, cp 14:00 Cardiovascular: Rate: normal, Rhythm: regular, Edema: is not appreciated, JVD: is not appreciated, 14:00 Respiratory: the patient does not display signs of respiratory distress, Respirations: normal, no use of accessory muscles, no retractions, labored breathing, is not present, Breath sounds: are clear throughout, no decreased breath sounds, no stridor, no wheezing, 14:00 Abdomen/GI: Inspection: abdomen appears normal, Palpation: abdomen is soft and non-tender, in all quadrants, 14:00 Back: pain, is absent, ROM is normal, 15:40 ECG was reviewed by the Attending Physician. cp Vital Signs: 13:33 BP 146 / 81; Pulse 99; Resp 16; Temp 97.9(TE); Pulse Ox 98% on R/A; Weight 74.39 kg; tl4 Height 5 ft. 4 in. ; Pain 0/10; 15:55 BP 139 / 77; Pulse 80; Resp 17; Pulse Ox 98% on R/A; rs5 17:25 BP 133 / 78; Pulse 77; Resp 17; Pulse Ox 98% on R/A; rs5 13:33 Body Mass Index 28.15 (74.39 kg, 162.56 cm) tl4 13:33 Pain Scale: Adult tl4 MDM: 13:43 Patient medically screened. 17:16 Data reviewed: vital signs, nurses notes, lab test result(s), EKG, radiologic studies, cp plain films, and as a result, I will discharge patient. 17:16 Differential diagnosis: Anxiety Reaction asthma, CHF exacerbation, Chronic Obstructive cp Pulmonary Disease Myocardial Infarction pneumonia, Pneumothorax pulmonary edema, Pulmonary Embolism reactive airway disease. Antibiotic administration: Not indicated, the patient does not have an appreciated infiltrate. I considered the following discharge prescriptions or medication management in the emergency department Medications were administered in the Emergency Department. See MAR. Independent interpretation of the following test(s) in the Emergency Department EKG: See my EKG interpretation above. Counseling: I had a detailed discussion with the patient and/or guardian regarding the historical points, exam findings, and any diagnostic results supporting the discharge/admit diagnosis, lab results, radiology results, the need for outpatient follow up, a family practitioner, to return to the emergency department if symptoms worsen or persist or if there are any questions or concerns that arise at home. Response to treatment: the patient's symptoms have mildly improved after treatment, and as a result, I will discharge patient. 07/07 13:50 Order name: D-Dimer; Complete Time: 15:30 07/07 13:50 Order name: CBC with Diff; Complete Time: 15:30 07/07 15:30 Interpretation: Reviewed. 07/07 13:50 Order name: BMP; Complete Time: 16:35 07/07 16:35 Interpretation: Normal except: CL 110; GLUC 108; GFR 70. 07/07 13:50 Order name: Magnesium; Complete Time: 16:35 07/07 13:50 Order name: SARS RAPID; Complete Time: 16:35 cp 07/07 13:50 Order name: Influenza Screen (a \T\ B); Complete Time: 16:35 07/07 14:48 Order name: XRAY Chest (1 view); Complete Time: 17:21 07/07 17:21 Interpretation: Report review. 07/07 13:50 Order name: EKG - Nurse/Tech; Complete Time: 15:53 07/07 13:50 Order name: IV; Complete Time: 15:27 cp EC:40 Rate is 81 beats/min. Rhythm is regular. DC interval is normal. QRS interval is cp prolonged at 104 msec. QT interval is normal. Interpreted by me. Reviewed by me. Administered Medications: 13:55 Drug: Albuterol Inhalation 2.5 mg Inhalation once Route: Inhalation; rs5 14:20 Follow up: Response: No adverse reaction rs5 13:55 Drug: predniSONE PO 60 mg PO once Route: PO; rs5 15:01 Follow up: Response: No adverse reaction rs5 Disposition Summary: 07/07/24 17:17 Discharge Ordered Notes: Location: Home cp Problem: new cp Symptoms: have improved cp Condition: Stable cp Diagnosis - Shortness of breath cp - Allergic rhinitis, unspecified cp Followup: cp - With: Private Physician - When: 1 week - Reason: symptoms continue Discharge Instructions: - Discharge Summary Sheet cp - Allergies, Adult cp - Shortness of Breath, Adult cp - How to Use a Nebulizer, Adult cp - Aspirin and Your Heart cp Forms: - Medication Reconciliation Form cp - Antibiotic Education cp - Prescription Opioid Use cp - Patient Portal Instructions cp - Leadership Thank You Letter cp Prescriptions: - NEBULIZER MACHINE - nebulize 1 ampule INHALATION route every 4-6 hours; 1 unit; Refills: 0, Product cp Selection Permitted - Zyrtec 10 mg Oral Tablet - take 1 tablet ORAL route once daily As needed; 20 tablet; Refills: 0, Product cp Selection Permitted - Albuterol Sulfate 2.5 mg /3 mL (0.083 %) Inhalation Solution for Nebulization - inhale 1 unit NEBULIZATION route every 8 hours As needed; 1 unit; Refills: 0, cp Product Selection Permitted - Medrol (Dharmesh) 4 mg Oral Tablets, Dose Pack - take 1 tablet ORAL route as directed - follow package instructions; 1 packet; cp Refills: 0, Product Selection Permitted Addendum: 07/09/2024 18:59 Co-signature as Attending Physician, Rashi Barrett MD I reviewed the patient's care r n provided by the Advanced Practice Provider and agree with the diagnosis and treatment plan. Signatures: Dispatcher [employer] Rashi Borden MD MD rn Page, Corey, PA PA cp Edmond Plunkett RN RN rs5 [facility] RN RN tl4 Corrections: (The following items were deleted from the chart) 07/07 13:50 13:50 D-DIMER+COAG.LAB.BRZ ordered. EDMS EDMS 13:50 13:50 CBC+H.LAB.BRZ ordered. EDMS EDMS 13:50 13:50 BASIC METABOLIC PANEL+C.LAB.BRZ ordered. EDMS EDMS 13:50 13:50 MAGNESIUM+C.LAB.BRZ ordered. EDMS EDMS 13:50 13:50 SARS-COV-2 Antigen Rapid+I.LAB.BRZ ordered. EDMS EDMS 13:50 13:50 Influenza Screen (A \T\ B)+BA.LAB.BRZ ordered. EDMS EDMS
[2024-07-07 17:54] VITALS: TEMP 97.9; O2SAT 98
[2024-07-07 17:56] VITALS: BP 139/77
--- OUTSIDE RECORDS SUMMARY | 2024-07-10 08:42 | XMS REPORT | Continuity of Care Document ---
Author Name Unknown Address [address] [facility] [place] [address] [facility] Address [address] [facility] [address] [place] [address] Care Team Providers Care Corporate Development Officer Name Role Phone CONCEPCION BARRIENTOS Primary Care Physician Unavail able Danyel Jones Attending Clinician Unavailable DEVANG_Brennon Attending Clinician Unavaila josh GC_GCBZW_[place] lilia_S Attending Clinician Unavaila Kiesha Rivers MD Attending Clinician [phone] KIESHA WHEATLEY Attending Clinician Unavailable Nathaniel Hernadez DO Attending Clinician [phone] Shayy Toledo MD Attending Clinician [phone] SHAYY TOLEDO Attending Clinician Unavailable Ray Altman MD Attending Clinician [phone] Doctor Unassigned, [place] Attending Clinician U Philomena Guzman MD Attending Clinician [phone] PHILOMENA CHEUNG Attending Clinician Unavail able Juan Caldwell MD Attending Clinician Tamie Pulliam Attending Clinician + JUAN CALDWELL Attending Clinician Unavailable TAMIE SALINAS Attending Clinician Unavail able Darwin Admitting Clinician Unavaila ble GC_GCBZW_Kaabdi_Ran Admitting Clinician Unavaila ble Payers Payer Name Policy Type Policy Number Effective Date Expirati on Date Source [place] NOV[place]AS [employer] [id number] 2014 00:00:00 MEDICARE NOVITAS MB [id number] 2014 00:00:00 [facility] MEDICARE NOVITAS [id number] 2014 00:00:00 [facility] Problems Condition Name Condition Details Condition Category [...] Vaginal itching Disease Active 04-25 00:00: 00 [facility] Urinary frequency Urinary frequency Disease Active 04-25 00:00: 00 [facility] Postmenopa usal atrophic vaginitis Postmenopa usal atrophic vaginitis Disease Active 04-25 00:00: 00 [facility] H/O mammogram H/O mammogram Disease Active 2016-11 00:00: 00 Overview: Formattin g of this note might be different from the original. 09/20/17- see scanned records WNL [facility] History of thyroid disease History of thyroid disease Disease Active 05-28 00:00: 00 [facility] Post-menop ausal Post-menop ausal Disease Active 05-24 00:00: 00 [facility] H/O tubal ligation H/O tubal ligation Disease Active 05-24 00:00: 00 [facility] Depression Depression Disease Active 05-24 00:00: 00 [facility] Liver disease Liver disease Disease Active 05-24 00:00: 00 [facility] Obesity (BMI 30-39.9) Obesity (BMI 30-39.9) Disease Active 05-24 00:00: 00 Overview: Formattin g of this note might be different from the original. ICD10 Diagnosis Term Safety Officer Utility [facility] Well woman exam Well woman exam Disease Active 05-24 00:00: 00 Overview: Formattin g of this note might be different from the original. ICD10 Diagnosis Term Safety Officer Utility [facility] [id number] Abnormal mammogram Problem [facility] [id number] Sleep apnea in adult Problem [facility] Chronic hepatitis C Chronic hepatitis C Problem [facility] Vitamin D deficiency Vitamin D deficiency Problem [facility] Mixed hyperlipid emia Hyperlipid emia, mixed Problem [facility] Atopic dermatitis Atopic dermatitis Problem [facility] [id number] Eczema, unspecifie d type Problem [facility] [id number] Gastroesop hageal reflux disease without esophagiti s Problem [facility] Laboratory test result abnormal Liver enzyme elevation Problem [facility] Major depressive disorder, single episode, severe with psychotic features Depression , psychotic Problem [facility] Hiatal hernia Hiatal hernia Problem [facility] [id number] Generalize d anxiety disorder Problem [facility] Moderate major depression , single episode Major depressive disorder, single episode, moderate Problem [facility] [id number] Cirrhosis of liver without ascites, unspecifie d hepatic cirrhosis type Problem [facility] [id number] Depression with anxiety Problem [facility] Gastroesop hageal reflux disease GERD (gastroeso phageal reflux disease) Problem [facility] [id number] Bipolar affective disorder, currently depressed, moderate Problem [facility] Liver cyst Liver cyst Problem [facility] [id number] Elevated LFTs Problem [facility] Decreased hearing Decreased hearing Problem [facility] Hyperglyce guille Hyperglyce guille Problem [facility] [id number] Irritant contact dermatitis , unspecifie d trigger Problem [facility] [id number] Overactive bladder Problem [facility] [id number] Benzodiaze pine dependence , continuous Problem [facility] Allergies, Adverse Reactions, Alerts Allergy Name Allergy Type Status Severity Reaction(s) Onset Date Inactive Date Treating Clinician Comments Source Perfume Perfume Active rash [facility] NO KNOWN ALLERGIE S Drug Class Active [facility] Social History Social Habit Start Date Stop Date Quantity Comments Source History of Tobacco Use [facility] Sex Assigned At [facility] Exposure to SARS-CoV-2 (event) 2022-07-11 00:00:00 2022-07-21 14:42:00 Not sure [facility] Tobacco use and exposure 2022-07-21 00:00:00 2022-07-21 00:00:00 Smokeless tobacco non-user [facility] Alcohol intake 2022-07-21 00:00:00 2022-07-21 00:00:00 Current non-drinker of alcohol (finding) [facility] Smoking Status Start Date Stop Date Source Never Smoker [facility] Medications Ordered Medication Name Filled Medication Name Start Date Stop Date Current Medication? Ordering Clinician Indication Dosage Frequency Signature (SIG) Comments Components Source metformin 500 mg tablet 06-28 00:00: 00 Yes 1mg Nicholas Chisholm topiramate 25 mg tablet 06-15 00:00: 00 Yes 1mg Nicholas Chisholm Lomaira 8 mg tablet 06-15 00:00: 00 Yes 5mg Nicholas Chisholm Qsymia 3.75 mg-23 mg capsule, extended release 2023-0 -25 00:00: 00 Yes 1mg Nicholas Chisholm benztropine 0.5 mg tablet 2023-0 -23 00:00: 00 Yes mg Nicholas Chisholm omeprazole 40 mg capsule,del ayed release 2023-0 7-16 00:00: 00 Yes mg Nicholas Chisholm hydroxyzine HCl 25 mg tablet 2023-0 7-16 00:00: 00 Yes mg Nicholas Chisholm triamcinolo ne acetonide 0.1 % topical ointment 2023-0 -16 00:00: 00 Yes % Nicholas Chisholm ziprasidone 40 mg capsule 2023-0 7-05 00:00: 00 Yes mg Nicholas Chisholm ZIPRASIDONE 60MG 2023-0 4-12 00:00: 00 Yes Nicholas Chisholm meloxicam 15 mg tablet 2023-0 4-02 00:00: 00 Yes mg Nicholas Chisholm MELOXICAM 15MG 2023-0 2-22 00:00: 00 Yes Nicholas Chisholm TRIAMCINOLO N 0.1% OIN 2023-0 2-21 00:00: 00 Yes Nicholas Chisholm ZIPRASIDONE 40MG 2023-0 2-18 00:00: 00 Yes Nicholas Chisholm ZIPRASIDONE 40MG 2023-0 1-24 00:00: 00 Yes Nicholas Chisholm TRIAMCINOLO N 0.1% OIN 2022-1 2-05 00:00: 00 Yes Nicholas Chisholm HYDROXYZ HCL 25MG 2022-1 2-05 00:00: 00 Yes Nicholas Chisholm TAKE 1 CAPSULE BY MOUTH THREE TIMES DAILY FOR 14 DAYS 1 1-09 00:00: 00 Yes Nicholas Chisholm METHYLPRED 4MG 1 1-09 00:00: 00 Yes Nicholas Chisholm HYDROXYZ HCL 25MG 2022-1 0-24 00:00: 00 Yes Nicholas Chisholm TAKE 1 CAPSULE BY MOUTH EVERY DAY 2022-1 0-24 00:00: 00 Yes Nicholas Chisholm BENZTROPINE 0.5MG 2022-0 9-27 00:00: 00 Yes 500 Nicholas Chisholm TAKE 1 TABLET 3 TIMES DAILY. 2022-0 8-23 00:00: 00 2023- 05-08 00:00 :00 No 1 Nicholas Chisholm CHLORHEX GLU 0.12% ALESIA 3-0 7-25 00:00: 00 Yes Nicholas Chisholm TRIAMCINOLO N 0.1% OIN 2023-0 7-19 00:00: 00 Yes Nicholas Chisholm TAKE 1 TABLET BY MOUTH EVERY 12 HOURS NEEDED FOR ITCHING 3-0 7-19 00:00: 00 Yes Nicholas Chisholm BENZTROPINE 0.5MG 2023-0 7-13 00:00: 00 Yes 500 Nicholas Chisholm TAKE 1 CAPSULE BY MOUTH IN THE MORNING 3-0 6-26 00:00: 00 Yes Nicholas Chisholm ZIPRASIDONE 60MG 2023-0 6-13 00:00: 00 Yes Nicholas Chisholm OMEPRAZOLE 40MG 2023-0 6-13 00:00: 00 Yes [id number] Nicholas Chisholm OMEPRAZOLE 40MG 2023-0 5-24 00:00: 00 Yes [id number] Nicholas Chisholm CHLORHEX GLU 0.12% ALESIA 3-0 5-19 00:00: 00 Yes Nicholas Chisholm ZIPRASIDONE 40MG 2023-0 5-18 00:00: 00 Yes Nicholas Chisholm TRIAMCINOLO N 0.1% OIN 3-0 5-15 00:00: 00 Yes Nicholas Chisholm HYDROXYZ HCL 25MG 3-0 4-29 00:00: 00 Yes Nicholas Chisholm BENZTROPINE 0.5MG 2023-0 4-03 00:00: 00 Yes Nicholas Chisholm TAKE 2 CAPSULES BY MOUTH AT BEDTIME WITH FOOD 3-0 4-03 00:00: 00 Yes Nicholas Chisholm ZIPRASIDONE 40MG 2023-0 4-03 00:00: 00 Yes [id number] Nicholas Chisholm TAKE 1 TABLET BY MOUTH EVERY 12 HOURS NEEDED FOR ITCHING 2023-0 3-21 00:00: 00 Yes Nicholas Chisholm TAKE 1 CAPSULE BY MOUTH EVERY DAY 2023-0 2-27 00:00: 00 Yes Nicholas Chisholm TRIAMCINOLO N 0.1% OIN 2023-0 2-27 00:00: 00 Yes Nicholas Chisholm CHLORHEX GLU 0.12% ALESIA 2023-0 2-23 00:00: 00 Yes Nicholas Chisholm ZIPRASIDONE 40MG 2023-0 2-10 00:00: 00 Yes [id number] Nicholas Chisholm TAKE 1 TABLET BY MOUTH AT BEDTIME 2022-0 1-03 00:00: 00 Yes Nicholas Chisholm ZIPRASIDONE 40MG 3-0 1-03 00:00: 00 Yes [id number] Nicholas Chisholm ZIPRASIDONE 60MG 2021-1 2-22 00:00: 00 Yes [id number] Nicholas Chisholm HYDROXYZ HCL 25MG 2021-1 2-21 00:00: 00 Yes [id number] Nicholas Chisholm TAKE 1 CAPSULE BY MOUTH EVERY DAY 2021-1 2-13 00:00: 00 Yes 40 Nicholas Chisholm TRIAMCINOLO NE ACETONIDE 0.1% OIN 2021-1 2- 00:00: 00 Yes Nicholas Chisholm CHLORHEXIDI NE GLUCONATE 0.12% ALESIA 1 2- 00:00: 00 Yes Nicholas Chisholm ZIPRASIDONE HCL 40MG 2021-1 2-13 00:00: 00 Yes 40 Nicholas Chisholm APPLY TOPICALLY TO THE AFFECTED AREA TWICE DAILY 2021-1 2-13 00:00: 00 Yes Nicholas Chisholm SUPREP BOWEL PREP KIT PREP KIT ALESIA 2021-1 2- 00:00: 00 Yes Nicholas Chisholm APPLY 2 GRAMS TOPICALLY TO THE AFFECTED JOINTS TWICE DAILY NEEDED 2021-1 2-13 00:00: 00 05-08 00:00 :00 No Nicholas Chisholm ZIPRASIDONE 60MG 2021-1 1-28 00:00: 00 Yes [id number] Nicholas Chisholm CHLORHEX GLU 0.12% ALESIA 2021-1 1-07 00:00: 00 Yes 120 Nicholas Chisholm DICLOFENAC 1% GEL 2021-1 0-13 00:00: 00 Yes 1000 Nicholas Chisholm APPLY 2 GRAMS TOPICALLY TO THE AFFECTED JOINTS TWICE DAILY NEEDED 2021-1 0-11 00:00: 00 Yes Nicholas Chisholm ZIPRASIDONE 40MG 2021-1 0-10 00:00: 00 Yes [id number] Nicholas Chisholm TAKE 1 TABLET BY MOUTH TWICE DAILY NEEDED FOR ANXIETY OR SLEEP 2021-1 0-10 00:00: 00 Yes Nicholas Chisholm ZIPRASIDONE 60MG CAP 2021-1 0-05 00:00: 00 Yes Nicholas Chisholm OMEPRAZOLE 40MG 2022-0 8-23 00:00: 00 Yes [id number] Nicholas Chisholm HYDROXYZINE HYDROCHLORI DE 25MG 2-0 8-23 00:00: 00 Yes [id number] Nicholas Chisholm &lt 2022-0 8-15 00:00: 00 Yes 60 Nicholas Chisholm TAKE 2 CAPSULES BY MOUTH AT BEDTIME WITH FOOD 2-0 8-12 00:00: 00 Yes Nicholas Chisholm TAKE 1 TABLET BY MOUTH AT BEDTIME 2-0 8-09 00:00: 00 Yes Nicholas Chisholm &lt 2022-0 8-08 00:00: 00 Yes 40 Nicholas Chisholm ZIPRASIDONE HCL 40MG 2-0 8-08 00:00: 00 Yes [id number] Nicholas Chisholm &lt 2022-0 7-09 00:00: 00 [...] 1 TABLET BY MOUTH AT BEDTIME 2-0 6-21 00:00: 00 Yes Nicholas Chisholm &lt [...] 4 mg tablet 12-23 00:00: 00 Yes [id number] 4mg Take 1 tablet by mouth daily. [facility] triamcinolo ne acetonide 0.1 % cream 12-05 00:00: 00 Yes [id number] Use BID on affected areas of body. Do not use on face. [facility] omeprazole 40 mg capsule,del ayed release 04-22 00:00: 00 Yes 1mg Nicholas Chisholm Dose Unknown 11-22 00:00: 00 Yes Nicholas Chisholm LORazepam 0.5 mg tablet 02-13 00:00: 00 Yes TK 1 T PO Q 8 H PRF ANXIETY [facility] benzonatate 200 mg capsule TAKE 1 CAPSULE [...] 1 CAPSULE BY MOUTH IN THE MORNING [facility] ziprasidone 40 [...] Source SHINGRIX VACCINE SHINGRIX VACCINE 2022-02-02 00:00:00 Rex Chisholm Tdap Tdap 2022-02-02 00:00:00 Rex Chisholm Vital Signs Vital Name Observation Time Observation Value Comments S ource height 2024-06-06 09:10:00 62 [in_i] [facility]mo n [facility] weight 2024-06-06 09:10:00 156.6 [facility]-06 09:10:00 96.4 [degF] Com mon [facility] bmi 2024-06-06 09:10:00 28.64 kg/m2 Comm on [facility] oximetry 2024-06-06 09:10:00 96 % [facility] blood pressure systolic 2024-06-06 09:10:00 132 mm[Hg[facility] blood pressure diastolic 2024-06-06 09:10:00 70 mm[Hg] [facility] height 2024-06-06 09:10:00 62 [in_i] Commo n [facility] weight 2024-06-06 09:10:00 156.6 [lb_av] [facility] temperature 2024-06-06 09:10:00 96.4 [degF] Com [facility] bmi 2024-06-06 09:10:00 28.64 kg/m2 Comm on [facility] oximetry 2024-06-06 09:10:00 96 % [facility] blood pressure systolic 2024-06-06 09:10:00 132 mm[Hg] [facility] blood pressure diastolic 2024-06-06 09:10:00 70 mm[Hg] [facility] height 2024-02-03 16:10:00 62 [in_i] Commo n [facility] weight 2024-02-03 16:10:00 154.0 [lb_av] [facility] temperature 2024-02-03 16:10:00 97.5 [degF] Com [facility] bmi 2024-02-03 16:10:00 28.16 kg/m2 Comm [facility] oximetry 2024-02-03 16:10:00 96 % [facility] respiratory rate 2024-02-03 16:10:00 17 /min [facility] blood pressure systolic 2024-02-03 16:10:00 130 mm[Hg] [facility] blood pressure diastolic 2024-02-03 16:10:00 82 mm[Hg] [facility] Body Weight 2024-01-13 00:00:00 148 [lb_av] [facility] BMI (Body Mass Index) 2024-01-13 00:00:00 30.9 kg/m2 [facility] Height 2024-01-13 00:00:00 58 [in_i] [facility] Height 2024-01-13 00:00:00 58 [in_i] [facility] Body Weight 2024-01-13 00:00:00 148 [lb_av] [facility] BMI (Body Mass Index) 2024-01-13 00:00:00 30.9 kg/m2 [facility] height 2024-01-12 10:20:00 62 [in_i] Commo n [facility] weight 2024-01-12 10:20:00 151.0 [lb_av] Co [facility] temperature 2024-01-12 10:20:00 97.7 [degF] Com [facility] bmi 2024-01-12 10:20:00 27.62 kg/m2 Comm on [facility] oximetry 2024-01-12 10:20:00 97 % [facility] respiratory rate 2024-01-12 10:20:00 18 /min [facility] blood pressure systolic 2024-01-12 10:20:00 118 mm[Hg] [facility] blood pressure diastolic 2024-01-12 10:20:00 67 mm[Hg] [facility] height 2024-01-12 10:20:00 62 [in_i] Commo n [facility] weight 2024-01-12 10:20:00 151.0 [lb_av] [facility] temperature 2024-01-12 10:20:00 97.7 [degF] Com [facility] bmi 2024-01-12 10:20:00 27.62 kg/m2 Comm [facility] oximetry 2024-01-12 10:20:00 97 % [facility] respiratory rate 2024-01-12 10:20:00 18 /min [facility] blood pressure systolic 2024-01-12 10:20:00 118 mm[Hg] [facility] blood pressure diastolic 2024-01-12 10:20:00 67 mm[Hg] [facility] height 2023-09-30 10:40:00 62 [in_i] Commo n [facility] weight 2023-09-30 10:40:00 148.4 [lb_av] [facility] bmi 2023-09-30 10:40:00 27.14 kg/m2 Comm [facility] height 2023-09-14 14:30:00 62 [in_i] Commo n [facility] weight 2023-09-14 14:30:00 148.4 [lb_av] [facility] temperature 2023-09-14 14:30:00 97.2 [degF] Com [facility] bmi 2023-09-14 14:30:00 27.14 kg/m2 Comm [facility] oximetry 2023-09-14 14:30:00 94 % [facility] respiratory rate 2023-09-14 14:30:00 16 /min [facility] blood pressure systolic 2023-09-14 14:30:00 138 mm[Hg] [facility] blood pressure diastolic 2023-09-14 14:30:00 74 mm[Hg] [facility] height 2023-06-09 09:40:00 62 [in_i] Commo n [facility] weight 2023-06-09 09:40:00 149.0 [lb_av] Co [facility] temperature 2023-06-09 09:40:00 96.4 [degF] Com [facility] bmi 2023-06-09 09:40:00 27.25 kg/m2 Comm [facility] oximetry 2023-06-09 09:40:00 97 % [facility] respiratory rate 2023-06-09 09:40:00 17 /min [facility] blood pressure systolic 2023-06-09 09:40:00 131 mm[Hg] [facility] blood pressure diastolic 2023-06-09 09:40:00 68 mm[Hg] Common [facility] height 2023-06-09 09:40:00 62 [in_i] Commo n [facility] weight 2023-06-09 09:40:00 149.0 [lb_av] [facility] temperature 2023-06-09 09:40:00 96.4 [degF] Com [facility] bmi 2023-06-09 09:40:00 27.25 kg/m2 Comm [facility] oximetry 2023-06-09 09:40:00 97 % [facility] respiratory rate 2023-06-09 09:40:00 17 /min [facility] blood pressure systolic 2023-06-09 09:40:00 131 mm[Hg] [facility] blood pressure diastolic 2023-06-09 09:40:00 68 mm[Hg] [facility] height 2023-01-18 10:50:00 62 [in_i] Commo n [facility] weight 2023-01-18 10:50:00 150.2 [lb_av] [facility] 2023-01-18 10:50:00 97.2 [degF] Com [facility] bmi 2023-01-18 10:50:00 27.47 kg/m2 Comm on [facility] oximetry 2023-01-18 10:50:00 96 % [facility] respiratory rate 2023-01-18 10:50:00 17 /min [facility] blood pressure systolic 2023-01-18 10:50:00 119 mm[Hg] [facility] blood pressure diastolic 2023-01-18 10:50:00 67 mm[Hg] [facility] height 2022-10-14 10:40:00 62 [in_i] [facility]mo [facility] weight 2022-10-14 10:40:00 152.5 [lb_av] [facility] temperature 2022-10-14 10:40:00 97.2 [degF] Com mon [facility] bmi 2022-10-14 10:40:00 27.89 kg/m2 Comm on [facility] oximetry 2022-10-14 10:40:00 97 % [facility] respiratory rate 2022-10-14 10:40:00 17 /min [facility] blood pressure systolic 2022-10-14 10:40:00 131 mm[Hg] [facility] blood pressure diastolic 2022-10-14 10:40:00 74 mm[Hg] [facility] Respiratory rate 2022-07-21 20:12:00 18 /min [facility] Body height 2022-07-21 20:12:00 152.4 cm [facility] Body weight 2022-07-21 20:12:00 70.035 kg [facility] BMI 2022-07-21 20:12:00 30.15 kg/m2 [facility] height 2022-07-14 10:30:00 62 [in_i] Commo n [facility] weight 2022-07-14 10:30:00 152 [lb_av] Comm on [facility] temperature 2022-07-14 10:30:00 97.9 [degF] Com mon [facility] bmi 2022-07-14 10:30:00 27.8 kg/m2 Commo n [facility] oximetry 2022-07-14 10:30:00 97 % [facility] respiratory rate 2022-07-14 10:30:00 16 /min [facility] blood pressure systolic 2022-07-14 10:30:00 122 mm[Hg] [facility] blood pressure diastolic 2022-07-14 10:30:00 73 mm[Hg] [facility] height 2022-06-10 10:30:00 62.5 [in_i] Comm on [facility] weight 2022-06-10 10:30:00 152.8 [lb_av] Co [facility] temperature 2022-06-10 10:30:00 98.7 [degF] Com mon [facility] bmi 2022-06-10 10:30:00 27.5 kg/m2 Commo n [facility] oximetry 2022-06-10 10:30:00 96 % Commo n [facility] respiratory rate 2022-06-10 10:30:00 17 /min [facility] blood pressure systolic 2022-06-10 10:30:00 117 mm[Hg] [facility] blood pressure diastolic 2022-06-10 10:30:00 70 mm[Hg] [facility] height 2022-04-13 13:20:00 62.5 [in_i] Comm on [facility] weight 2022-04-13 13:20:00 151.8 [lb_av] [facility] temperature 2022-04-13 13:20:00 97.4 [degF] Com [facility] bmi 2022-04-13 13:20:00 27.32 kg/m2 Comm on [facility] oximetry 2022-04-13 13:20:00 97 % Commo n [facility] respiratory rate 2022-04-13 13:20:00 17 /min [facility] blood pressure systolic 2022-04-13 13:20:00 127 mm[Hg] [facility] blood pressure diastolic 2022-04-13 13:20:00 63 mm[Hg] [facility] height 2021-11-27 14:00:00 62.5 [in_i] Comm on [facility] weight 2021-11-27 14:00:00 151.3 [lb_av] [facility] temperature 2021-11-27 14:00:00 97.2 [degF] Com [facility] bmi 2021-11-27 14:00:00 27.23 kg/m2 Comm on [facility] oximetry 2021-11-27 14:00:00 98 % Commo n [facility] respiratory rate 2021-11-27 14:00:00 17 /min [facility] blood pressure systolic 2021-11-27 14:00:00 126 mm[Hg] [facility] blood pressure diastolic 2021-11-27 14:00:00 73 mm[Hg] [facility] height 2021-08-27 11:20:00 62.5 [in_i] Comm on [facility] weight 2021-08-27 11:20:00 154.1 [lb_av] [facility] temperature 2021-08-27 11:20:00 98.0 [degF] Com [facility] bmi 2021-08-27 11:20:00 27.73 kg/m2 Comm on [facility] oximetry 2021-08-27 11:20:00 95 % Commo n [facility] respiratory rate 2021-08-27 11:20:00 17 /min [facility] blood pressure systolic 2021-08-27 11:20:00 123 mm[Hg] [facility] blood pressure diastolic 2021-08-27 11:20:00 62 mm[Hg] [facility] BP Systolic 2024-07-03 08:35:00 121 mm[Hg] Stas leda Susi Phan BP Diastolic 2024-07-03 08:35:00 73 mm[Hg] Kg rebeca Susi Phan Weight Measured 2024-07-03 08:35:00 157.00 pounds Nicholas F Phan Height Measured 2024-07-03 08:35:00 62.00 inches Nicholas F Phan Body Temperature 2024-07-03 08:35:00 97.40 degrees Nicholas F Phan Heart Rate 2024-07-03 08:35:00 91.00 /min Olya en F Phan Respiratory Rate 2024-07-03 08:35:00 24.00 /min Nicholas F Phan BP Systolic 2024-06-26 08:37:00 113 mm[Hg] Step hen F Phan BP Diastolic 2024-06-26 08:37:00 71 mm[Hg] Kg phen F Phan Weight Measured 2024-06-26 08:37:00 156.60 pounds Nicholas F Phan Height Measured 2024-06-26 08:37:00 62.00 inches Nicholas F Phan Body Temperature 2024-06-26 08:37:00 97.30 degrees Nicholas [...] Phan Heart Rate 2023-07-14 11:00:00 90.00 /min Oyla en F Phan Respiratory Rate 2023-07-14 11:00:00 18.00 /min Nicholas F Phan BP Systolic 2022-05-12 09:45:00 133 mm[Hg] Step hen F Phan BP Diastolic 2022-05-12 09:45:00 83 mm[Hg] Kg phen F Phan Weight Measured 2022-05-12 09:45:00 152.60 pounds Nicholas F Phan Height Measured 2022-05-12 09:45:00 62.00 inches Nicholas F Phan Body Temperature 2022-05-12 09:45:00 97.40 degrees Nicholas F Phan Heart Rate 2022-05-12 09:45:00 96.00 /min Olya en F Phan Respiratory Rate 2022-05-12 09:45:00 Nicholas F Phan BP Systolic 2022-02-02 10:23:00 114 mm[Hg] Step hen F Phan BP Diastolic 2022-02-02 10:23:00 72 mm[Hg] Gk phen F Phan Weight Measured 2022-02-02 10:23:00 [...] Diastolic 2021-06-27 14:34:00 75 mm[Hg] Kg phen F Phan Weight Measured 2021-06-27 14:34:00 151.00 pounds Nicholas F Phan Height Measured 2021-06-27 14:34:00 62.00 inches Nicholas F Phan Body Temperature 2021-06-27 14:34:00 97.90 degrees Nicholas F Phan Heart Rate 2021-06-27 14:34:00 89.00 /min Olya en F Phan Respiratory Rate 2021-06-27 14:34:00 Nicholas F Phan BP Systolic 2020-06-24 11:24:00 144 mm[Hg] Step hen F Phan BP Diastolic 2020-06-24 11:24:00 81 mm[Hg] Kg phen F Phan Weight Measured 2020-06-24 11:24:00 155.00 pounds Nicholas F Phan Height Measured 2020-06-24 11:24:00 62.00 inches Nicholas F Phan Body Temperature 2020-06-24 11:24:00 98.60 degrees Nicholas F Phna Heart Rate 2020-06-24 11:24:00 97.00 /min Olya en F Phan Respiratory Rate 2020-06-24 11:24:00 16.00 /min Nicholas F Phan Procedures Procedure Date / Time Performed Performing Clinicia n Source XR, knee, 1 or 2 view 2024-01-13 00:00:00 [facility] Encounters Start Date/Time End Date/Time Encounter Type Admission Type Attending Clinicians Care Facility Care Department Encounter ID Source 2024-06-02 08:54:00 Outpatient Jones, Danyel STLMLC STLMLC [id number] [facility] 2024-01-10 11:29:00 Outpatient Jones, Danyel STLMLC STLMLC [id number] [facility] 2023-09-30 08:38:00 Outpatient Jones, Danyel STLMLC STLMLC [id number] [facility] 2023-06-23 12:01:00 Outpatient Jones, Danyel STLMLC STLMLC [id number] [facility] 2023-06-07 07:43:00 Outpatient Jones, Danyel STLMLC STLMLC [id number] [facility] 2023-01-14 08:26:00 Outpatient Jones, Danyel STLMLC STLMLC [id number] [facility] 2022-10-13 08:19:00 Outpatient Jones, Danyel STLMLC STLMLC [id number] [facility] 2022-10-02 08:24:00 Outpatient Jones, Danyel STLMLC STLMLC [id number] [facility] 2022-04-13 12:59:04 Outpatient Jones, Danyel STLMLC STLMLC [id number] [facility] 2022-04-09 16:18:00 Outpatient Jones, Danyel STLMLC STLMLC [id number] [facility] 2021-12-17 14:32:00 Outpatient Jones, Danyel STLMLC STLMLC [id number] [facility] 2021-12-17 14:31:33 Outpatient Jones, Danyel STLMLC STLMLC [id number] [facility] 2021-12-17 13:45:17 Outpatient Jones, Danyel STLMLC STLMLC [id number] [facility] 2021-12-17 12:48:47 [facility] [id number] [facility] 2021-12-17 12:48:29 [facility] [id number] [facility] 2021-12-17 12:18:24 [facility] [id number] [facility] 2021-12-17 11:44:15 [facility] [id number] [facility] 2021-12-17 11:25:09 [facility] [id number] [facility] 2021-12-17 11:24:16 [facility] [id number] [facility] 2021-12-17 11:16:21 [facility] [id number] [facility] 2024-07-03 08:32:55 2024-07-03 08:32:[address] [facility] [id number] Nicholas Chisholm 2024-07-03 00:00:00 2024-07-03 00:00:[address] [facility] [id number] Nicholas Chisholm 2024-06-27 13:00:19 2024-06-27 13:00:[address] [facility] [id number] Nicholas Chisholm 2024-06-26 08:30:10 2024-06-26 08:30:[address] [facility] [id number] Nicholas Chisholm 2024-06-26 00:00:00 2024-06-26 00:00:[address] [facility] [id number] Nicholas Chisholm 2024-06-15 17:46:51 2024-06-15 17:46:[address] [facility] [id number] Nicholas Chisholm 2024-06-15 00:00:00 2024-06-15 00:00:[address] [facility] [id number] Nicholas Chisholm 2024-06-06 00:00:00 2024-06-06 00:00:00 OFFICE VISIT ESTAB PT LEVEL 4 STLMLC STLC [id number] [facility] 2024-06-06 00:00:00 2024-06-06 00:00:00 [facility]NUAL [facility] [id number] [facility] 2024-05-22 13:38:40 2024-05-22 13:38:40 Outpatient [facility] [id number] Nicholas Chisholm 2024-04-18 09:55:33 2024-04-18 09:55:[address] [facility] [id number] Nicholas Chisholm 2024-04-13 00:00:00 2024-04-13 00:00:00 (TEL) STLMLC STLMLC [id number] [facility] 2024-03-09 00:00:00 2024-03-09 00:00:00 (TEL) STLMLC STLMLC [id number] [facility] 2024-03-07 14:21:40 2024-03-07 14:21:[address] [facility] [id number] Nicholas Chisholm 2024-02-22 00:00:00 2024-02-22 00:00:00 Joey Medrano MD: [address] [place] [address] , Ph. [phone] DEVANG_Mitchell_R nakia_ AO [place] [facility] [place] [id number] [facility] 2024-02-03 00:00:00 2024-02-03 00:00:00 OFFICE VISIT ESTAB PT LEVEL 3 [facility] [id number] [facility] 2024-02-01 14:26:12 2024-02-01 14:26:[address] [facility] [id number] Nicholas Chisholm 2024-02-01 00:00:00 2024-02-01 00:00:00 (WEB) [facility] [id number] [facility] 2024-01-27 09:51:30 2024-01-27 09:51:[address] [facility] [id number] Nicholas Goldman Phan 2024-01-13 00:00:00 2024-01-13 00:00:00 Joey Medraon MD: [address] [place], [place] [id number] , Ph. [phone] DEVANG_Alena Mack AOSM [place] [facility] [place] [id number] [facility] 2024-01-13 00:00:00 2024-01-13 00:00:00 Joey Medrano MD: [address] [place], [place] [address] , Ph. [phone] [place]OSM [place] [facility] [facility] [place] [id number] [facility] 2024-01-12 00:00:00 2024-01-12 00:00:00 Outpatient FOG_Alena Mack AO [place] [id number] [facility] 2024-01-12 00:00:00 2024-01-12 00:00:00 OFFICE VISIT ESTAB PT LEVEL 4 [facility] [id number] [facility] 2024-01-06 00:00:00 2024-01-06 00:00:00 Outpatient FOG_Alena Mack AO [place] [id number] [facility] 2024-01-04 00:00:00 2024-01-04 00:00:00 (TEL) STLMLC STLMLC [id number] [facility] 2023-12-28 14:15:32 2023-12-28 14:15:32 Outpatient SFA [facility] [id number] Nicholas Chisholm 2023-10-18 14:44:31 2023-10-18 14:44:31 Outpatient SFA [facility] [id number] Nicholas Chisholm 2023-10-18 00:00:00 2023-10-18 00:00:00 (TEL) STLMLC STLMLC [id number] [facility] 2023-09-30 00:00:00 2023-09-30 00:00:00 (TEL) STLMLC STLMLC [id number] [facility] 2023-09-30 00:00:00 2023-09-30 00:00:00 OFFICE VISIT ESTAB PT LEVEL 3 STLMLC STLMLC [id number] [facility] 2023-09-20 00:00:00 2023-09-20 00:00:00 Outpatient GC_GCBZW_Ka diyala_S [facility] [id number] [facility] 2023-09-14 00:00:00 2023-09-14 00:00:00 (TEL) STLMLC STLMLC [id number] [facility] 2023-09-14 00:00:00 2023-09-14 00:00:00 OFFICE VISIT ESTAB PT LEVEL 4 STLMLC STLMLC [id number] [facility] 2023-08-10 13:18:13 2023-08-10 13:18:13 Outpatient SFA SFA [id number] Nicholas Chisholm 2023-07-14 10:43:12 2023-07-14 10:43:12 Outpatient SFA SFA [id number] Nicholas Chisholm 2023-07-13 12:58:56 2023-07-13 12:58:56 Outpatient SFA SFA [id number] Nicholas Chisholm 2023-06-18 00:00:00 2023-06-18 00:00:00 (TEL) STLMLC STLMLC [id number] [facility] 2023-06-09 00:00:00 2023-06-09 00:00:00 OFFICE VISIT ESTAB PT LEVEL 4 STLMLC STLMLC [id number] [facility] 2023-06-09 00:00:00 2023-06-09 00:00:00 SUB ANNUAL [facility] WELLNESS VISIT STLMLC STLMLC [id number] [facility] 2023-06-08 12:58:13 2023-06-08 12:58:13 Outpatient SFA SFA [id number] Nicholas Chisholm 2023-05-11 12:58:26 2023-05-11 12:58:26 Outpatient SFA SFA [id number] Nicholas Chisholm 2023-04-19 12:58:11 2023-04-19 12:58:11 Outpatient SFA SFA [id number] Nicholas Chisholm 2023-04-14 00:00:00 2023-04-14 00:00:00 (TEL) STLMLC STLMLC [id number] [facility] 2023-04-09 13:59:04 2023-04-09 13:59:04 Outpatient SFA SFA [id number] Nicholas Chisholm 2023-03-23 10:17:50 2023-03-23 10:17:50 Outpatient SFA SFA [id number] Nicholas Chisholm 2023-03-11 14:38:18 2023-03-11 14:38:18 Outpatient SFA SFA [id number] Nicholas Chisholm 2023-03-01 00:00:00 2023-03-01 00:00:00 (TEL) STLMLC STLMLC [id number] [facility] 2023-01-18 00:00:00 2023-01-18 00:00:00 OFFICE VISIT ESTAB PT LEVEL 4 STLMLC STLMLC [id number] [facility] 2023-01-18 00:00:00 2023-01-18 00:00:00 (TEL) STLMLC STLMLC [id number] [facility] 2022-10-14 00:00:00 2022-10-14 00:00:00 OFFICE VISIT ESTAB PT LEVEL 4 STLMLC STLMLC [id number] [facility] 2022-10-02 00:00:00 2022-10-02 00:00:00 (TEL) STLMLC STLMLC [id number] [facility] 2022-08-17 00:00:00 2022-08-17 00:00:00 (TEL) STLMLC STLMLC [id number] [facility] 2022-08-13 00:00:00 2022-08-13 00:00:00 (TEL) STLMLC STLMLC [id number] [facility] 2022-08-07 00:00:00 2022-08-07 00:00:00 Telephone Addanie Kiesha Sanchez [facility] 1.2.840.114 350.1.13.10 4.2.7.2.686 [id number] [facility] 2022-07-21 15:00:00 2022-07-21 16:00:37 Office Visit Heaven Kiesha Sanchez [facility] 1.2.840.114 350.1.13.10 4.2.7.2.686 [id number] [facility] 2022-07-21 15:00:00 2022-07-21 16:00:37 Outpatient R HEAVEN KIESHA [facility] [id number] [facility] 2022-07-21 15:00:00 2022-07-21 15:00:00 Outpatient R ADDANIE KIESHA [facility] [id number] [facility] 2022-07-14 00:00:00 2022-07-14 00:00:00 OFFICE VISIT ESTAB PT LEVEL 4 STLMLC STLC [id number] [facility] 2022-06-10 00:00:00 2022-06-10 00:00:00 SUB ANNUAL MCR WELLNESS VISIT STLMLC STLMLC [id number] [facility] 2022-04-16 00:00:00 2022-04-16 00:00:00 (TEL) STLMLC STLMLC [id number] [facility] 2022-04-13 00:00:00 2022-04-13 00:00:00 OFFICE VISIT ESTAB PT LEVEL 4 STLMLC STLMLC [id number] [facility] 2022-02-24 00:00:00 2022-02-24 00:00:00 (TEL) STLMLC STLMLC [id number] [facility] 2021-11-27 00:00:00 2021-11-27 00:00:00 OFFICE VISIT ESTAB PT LEVEL 4 STLMLC STLMLC [id number] [facility] 2021-10-21 00:00:00 2021-10-21 00:00:00 (TEL) STLMLC STLMLC [id number] [facility] 2021-08-27 00:00:00 2021-08-27 00:00:00 OFFICE VISIT ESTAB PT LEVEL 4 STLMLC STLMLC [id number] [facility] 2021-08-13 00:00:00 2021-08-13 00:00:00 Outpatient STLMLC STLMLC [id number] [facility] 2021-07-24 00:00:00 2021-07-24 00:00:00 Outpatient STLMLC STLMLC [id number] [facility] 2021-07-24 00:00:00 2021-07-24 00:00:00 Outpatient STLMLC STLMLC [id number] [facility] 2021-05-29 00:00:00 2021-05-29 00:00:00 Outpatient STLMLC STLMLC [id number] [facility] 2021-05-29 00:00:00 2021-05-29 00:00:00 Outpatient STLMLC STLMLC [id number] [facility] 2021-04-22 00:00:00 2021-04-22 00:00:00 Outpatient STLMLC STLMLC [id number] [facility] 2021-02-26 00:00:00 2021-02-26 00:00:00 Outpatient STLMLC STLMLC [id number] [facility] 2021-02-01 00:00:00 2021-02-01 00:00:00 Patient Outreach aNthaniel Hernadez [facility] 1.2.840.114 350.1.13.10 4.2.7.2.686 [id number] [facility] 2021-01-21 00:00:00 2021-01-21 00:00:00 Outpatient STLMLC STLMLC [id number] [facility] 2020-12-24 00:00:00 2020-12-24 00:00:00 Outpatient STLMLC STLMLC [id number] [facility] 2020-12-23 15:22:06 2020-12-23 16:01:41 Office Visit ShreeShayy [facility] 1.2.840.114 350.1.13.10 4.2.7.2.686 [id number] [facility] 2020-12-23 15:30:00 2020-12-23 15:30:00 Outpatient SHAYY HENDRICKSON [facility] [id number] [facility] 2020-12-06 12:55:13 2020-12-06 13:25:13 Office Visit Ray AltmanShayy [facility] 1.2.840.114 350.1.13.10 4.2.7.2.686 [id number] [facility] 2020-12-06 13:00:00 2020-12-06 13:00:00 Outpatient SHAYY HENDRICKSON [facility] [id number] [facility] 2020-12-06 00:00:00 2020-12-06 00:00:00 Orders Only Doctor Unassigned, [place] [facility] 1.284.114 350.1.13.10 4.2.7.2.686 [id number] [facility] 2020-12-05 08:40:53 2020-12-05 16:49:31 Office Visit Philomena Cheung [facility] 1.2.114 350.1.13.10 4.2.7.2.686 [id number] 2020-12-05 08:40:53 2020-12-05 16:49:31 [facility] 1.284.114 350.1.13.10 4.2.7.2.686 [id number] [facility] 2020-12-05 08:45:00 2020-12-05 08:45:00 Outpatient R PHILOMENA CHENUG [facility] [id number] [facility] 2020-11-28 00:00:00 2020-11-28 00:00:00 Outpatient STLMLC STLMLC [id number] [facility] 2020-11-28 00:00:00 2020-11-28 00:00:00 Outpatient STLMLC STLMLC [id number] [facility] 2020-11-01 00:00:00 2020-11-01 00:00:00 Outpatient STLMLC STLMLC [id number] [facility] 2020-10-22 00:00:00 2020-10-22 00:00:00 Telephone Juan Caldwell [facility] 1.2.840.114 350.1.13.10 4.2.7.2.686 [id number] [facility] 2020-10-21 13:20:16 2020-10-21 14:09:54 Office Visit Shayy [place] [facility] Medical Office Building 1.2840.114 350.1.13.10 4.2.7.2.686 [id number] [facility] 2020-10-21 13:30:00 2020-10-21 13:30:00 Outpatient R SHAYY TOLEDO [facility] [id number] [facility] 2020-10-21 00:00:00 2020-10-21 00:00:00 Orders Only Doctor Unassigned, [place] [facility] 1.2.840.114 350.1.13.10 4.2.7.2.686 [id number] [facility] 2020-10-15 00:00:00 2020-10-15 00:00:00 Telephone Juan Caldwell [facility] 1.2.840.114 350.1.13.10 4.2.7.2.686 [id number] [facility] 2020-10-15 00:00:00 2020-10-15 00:00:00 Telephone Juan Caldwell [facility] 1.2.840.114 350.1.13.10 4.2.7.2.686 [id number] [facility] 2020-10-15 00:00:00 2020-10-15 00:00:00 Telephone Tamie Salinas [facility] 1.2.840.114 350.1.13.10 4.2.7.2.686 [id number] [facility] 2020-10-14 13:01:52 2020-10-14 13:28:42 [facility] 1.2840.114 350.1.13.10 4.2.7.2.686 [id number] [facility] 2020-10-14 13:00:00 2020-10-14 13:00:00 Outpatient JUAN ADAMES [facility] [id number] [facility] 2020-10-14 00:00:00 2020-10-14 00:00:00 Outpatient STLMLC STLMLC [id number] [facility] 2020-08-28 00:00:00 2020-08-28 00:00:00 Outpatient STLMLC STLMLC [id number] [facility] 2020-08-15 00:00:00 2020-08-15 00:00:00 Outpatient STLMLC STLMLC [id number] [facility] 2020-08-14 00:00:00 2020-08-14 00:00:00 Outpatient STLMLC STLMLC [id number] [facility] 2020-07-31 11:42:00 2020-07-31 11:42:00 Outpatient [facility] [id number] [facility] 2020-07-31 10:00:00 2020-07-31 10:00:00 Outpatient [facility] [id number] [facility] 2020-06-10 10:20:52 2020-06-18 15:33:43 Office Visit Tamie Salinas [facility] 1.2.840.114 350.1.13.10 4.2.7.2.686 [id number] [facility] 2020-06-11 13:45:00 2020-06-11 13:45:00 Outpatient [facility] [id number] [facility] 2020-06-10 10:15:00 2020-06-10 10:15:00 Outpatient TAMIE CONNELL [facility] [id number] [facility] 2020-06-10 00:00:00 2020-06-10 00:00:00 Orders Only Doctor Unassigned, [place] [facility] 1.2.840.114 350.1.13.10 4.2.7.2.686 [id number] [facility] 2020-06-04 08:47:00 2020-06-04 08:47:[address] [facility] [facility] [id number] [facility] 2020-05-28 15:17:00 2020-05-28 15:17:00 [facility] [id number] [facility] 2020-05-23 16:02:00 2020-05-23 16:02:00 [facility] [facility] [id number] [facility] 2020-05-22 09:28:00 2020-05-22 09:28:00 [facility] [id number] [facility] 2020-05-13 10:12:00 2020-05-13 10:12:00 [facility] [id number] [facility] 2020-05-08 14:30:00 2020-05-08 14:30:00 [facility] [id number] [facility] 2020-05-08 07:55:00 2020-05-08 07:55:00 [facility] [id number] [facility] 2020-04-30 10:45:00 2020-04-30 10:45:00 [facility] [id number] [facility] 2020-04-30 10:45:00 2020-04-30 10:45:00 [facility] [id number] [facility] 2020-04-08 13:10:00 2020-04-08 13:10:00 [facility] [id number] [facility] 2020-02-17 15:00:00 2020-02-17 15:00:00 [facility] [id number] [facility] 2020-02-16 16:47:00 2020-02-16 16:47:00 [facility] [id number] [facility] 2020-01-29 10:30:00 2020-01-29 10:30:00 [facility] [id number] [facility] 2019-10-30 10:15:00 2019-10-30 10:15:00 [facility] [id number] [facility] 2019-10-24 08:29:00 2019-10-24 08:29:00 [facility] [id number] [facility] 2019-07-27 09:45:00 2019-07-27 09:45:00 [facility] [id number] [facility] 2019-05-23 11:41:00 2019-05-23 11:41:00 [facility] [id number] [facility] 2019-03-08 14:45:00 2019-03-08 14:45:00 [facility] [id number] [facility] 2019-02-22 10:00:00 2019-02-22 10:00:00 [facility] [id number] [facility] 2019-02-01 09:33:00 2019-02-01 09:33:00 [facility] [id number] [facility] 2019-01-25 13:30:00 2019-01-25 13:30:00 Outpatient [facility] [id number] [facility] Results Test Description Test Time Test Comments Results Result Co mments Source HERPES SIMPLEX VIRUS, [id number] 00:00:00* Test Item Value Reference Range Interpretation Comme nts SPECIMEN SOURCE (test code = 96305) RIGHT LABIA HSV TYPE I (test code = 665158) NEGATIVE HSV TYPE II (test code = 254278) NEGATIVE Nicholas F AustinHERPES SIMPLEX VIRUS, [id number] 00:00:00* Test Item Value Reference Range Interpretation Comme nts SPECIMEN SOURCE (test code = 61228) RIGHT LABIA HSV TYPE I (test code = 379380) NEGATIVE HSV TYPE II (test code = 288580) NEGATIVE Nicholas Goldman AustinHERPES SIMPLEX VIRUS, [id number] 00:00:00* Test Item Value Reference Range Interpretation Comme nts SPECIMEN SOURCE (test code = 64373) RIGHT LABIA HSV TYPE I (test code = 249516) NEGATIVE HSV TYPE II (test code = 146192) NEGATIVE Nicholas F AustinCBC W/AUTO [id number] 00:00:00* Test Item Value Reference Range Interpretation Comme nts NUCLEATED RBCS (test code = 21803-8) 0.0 /100 WBC'S See_Comment [Automated messa ge] The system which generated this result transmitted reference range: 0.0 /100 WBC'S. The reference range was not used to interpret this result as normal/abnormal. ABSOLUTE EOSINOPHILS (test code = 69103-4) 0.11 K/UL See_Comment [Automated messa ge] The system which generated this result transmitted reference range: 0.00-0.50 K/UL. The reference range was not used to interpret this result as normal/abnormal. ABSOLUTE LYMPHOCYTES (test code = 09950-4) 1.86 K/UL See_Comment [Automated messa ge] The system which generated this result transmitted reference range: 1.00-4.00 K/UL. The reference range was not used to interpret this result as normal/abnormal. ABSOLUTE MONOCYTES (test code = 64331-8) 0.36 K/UL See_Comment [Automated messa ge] The system which generated this result transmitted reference range: 0.20-1.00 K/UL. The reference range was not used to interpret this result as normal/abnormal. ABSOLUTE NEUTROPHILS (test code = 59519-4) 2.59 K/UL See_Comment [Automated messa ge] The system which generated this result transmitted reference range: 1.50-7.50 K/UL. The reference range was not used to interpret this result as normal/abnormal. BASOPHILS (test code = 64202-5) 0.8 % EOSINOPHILS (test code = 85584-7) 2.2 % HEMATOCRIT (test code = 49422-6) 41.9 % See_Comment [Automated messa ge] The [...] result as normal/abnormal. LYMPHOCYTES (test code = 31046-2) 37.4 % MCH (test code = 57316-2) 26.6 PG See_Comment [Automated messa ge] The system which generated this result transmitted reference range: 25.0-33.0 PG. The reference range was not used to interpret this result as normal/abnormal. MCHC (test code = 66149-2) 32.2 G/DL See_Comment [Automated messa ge] The system which generated this result transmitted reference range: 31.0-36.0 G/DL. The reference range was not used to interpret this result as normal/abnormal. MCV (test code = 29494-3) 82.6 fL See_Comment [Automated messa ge] The system which generated this result transmitted reference range: 80.0-99.0 fL. The reference range was not used to interpret this result as normal/abnormal. MONOCYTES (test code = 11398-5) 7.2 % NEUTROPHILS (test code = 69405-7) 52.2 % PLATELET COUNT (test code = 90619-7) 201 K/UL See_Comment [Automated messa ge] The system which generated this result transmitted reference range: 130-400 K/UL. The reference range was not used to interpret this result as normal/abnormal. RBC (test code = 33714-4) 5.07 M/UL See_Comment [Automated messa ge] The system which generated this result transmitted reference range: 3.80-5.40 M/UL. The reference range was not used to interpret this result as normal/abnormal. RDW (test code = 07112-1) 12.2 % See_Comment [Automated messa ge] The system which generated this result transmitted reference range: 11.5-15.0 %. The reference range was not used to interpret this result as normal/abnormal. WBC (test code = 30303-1) 5.0 K/UL See_Comment [Automated messa ge] The system which generated this result transmitted reference range: 3.5-11.0 K/UL. The reference range was not used to interpret this result as normal/abnormal. HEMOGLOBIN [id number] 00:00:00* Test Item Value Reference Range Interpretation Comme [facility] HEMOGLOBIN A1c (test code = 4548-4) 5.8 % See_Comment H [Automated messa ge] The system which generated this result transmitted reference range: 4.2-5.6 %. The reference range was not used to interpret this result as normal/abnormal. VITAMIN D, 25 [id number] 00:00:00* Test Item Value Reference Range Interpretation Comme [facility] VITAMIN D, 25 OH (test code = 1989-3) 18 NG/ML SEE BELOW NG/ML L LIPID PANEL WITH REFLEX DIRECT [id number] 00:00:00* Test Item Value Reference Range Interpretation Comme [facility] CALC LDL CHOL (test code = 22859-9) 125 MG/DL See_Comment H [Automated messa ge] [...] normal/abnormal. RISK RATIO LDL/HDL (test code = 73567-4) 2.23 RATIO See_Comment [Automated message] The system [...] interpret this result as normal/abnormal. COMPREHENSIVE METABOLIC [id number] 00:00:00* Test Item Value Reference Range Interpretation Comme nts ALBUMIN (test code = 1751-7) 4.6 G/DL [...] code = 3094-0) 14 MG/DL See_Comment [Automated LY.coma ge] The system which generated this result transmitted reference range: 6-20 MG/DL. The reference range was not used to interpret this result as normal/abnormal. CALCIUM (test code = 48875-0) 9.6 MG/DL See_Comment [Automated messa ge] The system which generated this result transmitted reference range: 8.5-10.5 MG/DL. The reference range was not used to interpret this result as normal/abnormal. CALC A/G RATIO (test code = 1759-0) 1.6 RATIO See_Comment [Automated LY.coma ge] The system which generated this result [...] as normal/abnormal. CALC GLOBULIN (test code = 10176-8) 2.8 G/DL See_Comment [Automated messa ge] The [...] normal/abnormal. eGFR (2020 CKD-EPI) (test code = 36464-5) 77 ML/MIN/1.73 See_Comment [Automated messa ge] The [...] code = 1920-8) 19 U/L See_Comment [Automated LY.coma ge] The system which generated this result transmitted reference range: 9-40 U/L. The reference range was not used to interpret this result as normal/abnormal. ALT (test code = 1742-6) 19 U/L See_Comment [Automated LY.coma ge] The system which generated this result transmitted reference range: 5-40 U/L. The reference range was not used to interpret this result as normal/abnormal. SODIUM (test code = 2951-2) 144 MEQ/L See_Comment [Automated LY.coma ge] The system which generated this result transmitted reference range: 133-146 MEQ/L. The reference range was not used to interpret this result as normal/abnormal. CT/NG, NAAT, [id number] 20:27:14* Test Item Value Reference Range Interpretation Comme nts CHLAMYDIA, NAAT, URINE (test code = 24354) NEGATIVE NEGATIVE Testing is perfo rmed with Lisa JOSE 6800/8800 systems usingreal-time polymerase chain reaction (PCR) method. A negative result does not exclude low level infection, specimensampling error, or collection error. GONORRHEA, NAAT, URINE (test code = 32932) NEGATIVE NEGATIVE Testing is perfo rmed with Lisa JOSE 6800/8800 systems usingreal-time polymerase chain reaction (PCR) method. A negative result does not exclude low level infection, specimensampling error, or collection error. HIV 1/2 4TH GEN, RFLX [id number] 04:34:37* Test Item Value Reference Range Interpretation Comme nts HIV 1/2 4TH GEN, RFLX CONF (test code = 3514) NON-REACTIVE NON-REACTIVE UNLESS OTHERWISE INDICATED, ALL TESTING PERFORMED AT [facility] [address] [place] [address] TEASELER: FERMIN YBARRA M.D. CLIA NUMBER [id number] [place]. [id number] CT/NG, TMA, [id number] 00:00:00* Test Item Value Reference Range Interpretation Comme nts CHLAMYDIA, NAAT, URINE (test code = 38220) NEGATIVE GONORRHEA, NAAT, URINE (test code = 00510) NEGATIVE Nicholas Goldman AustinHIV 1/2 4TH GEN, RFLX [id number] 00:00:00* Test Item Value Reference Range Interpretation Comme nts HIV 1/2 4TH GEN, RFLX CONF ( test code = 3514) NON-REACTIVE Nicholas Goldman AustinCT/NG, TMA, [id number] 00:00:00* Test Item Value Reference Range Interpretation Comme nts CHLAMYDIA, NAAT, URINE (test code = 07547) NEGATIVE GONORRHEA, NAAT, URINE (test code = 82834) NEGATIVE Nicholas Goldman AustinHIV 1/2 4TH GEN, RFLX [id number] 00:00:00* Test Item Value Reference Range Interpretation Comme nts HIV 1/2 4TH GEN, RFLX CONF ( test code = 3514) NON-REACTIVE Nicholas Goldman AustinCT/NG, TMA, [id number] 00:00:00* Test Item Value Reference Range Interpretation Comme nts CHLAMYDIA, NAAT, URINE (test code = 85908) NEGATIVE GONORRHEA, NAAT, URINE (test code = 23353) NEGATIVE Nicholas Goldman AustinHIV 1/2 4TH GEN, RFLX [id number] 00:00:00* Test Item Value Reference Range Interpretation Comme nts HIV 1/2 4TH GEN, RFLX CONF ( test code = 3514) NON-REACTIVE Nicholas ChisholmCBC W/AUTO [id number] 00:00:00* Test Item Value Reference Range Interpretation Comme nts NUCLEATED RBCS (test code = 99714-7) 0.0 /100 WBC'S See_Comment [Automated messa ge] The system which generated this result transmitted reference range: 0.0 /100 WBC'S. The reference range was not used to interpret this result as normal/abnormal. ABSOLUTE EOSINOPHILS (test code = 33633-9) 0.14 K/UL See_Comment [Automated messa ge] The system which generated this result transmitted reference range: 0.00-0.50 K/UL. The reference range was not used to interpret this result as normal/abnormal. ABSOLUTE LYMPHOCYTES (test code = 48762-0) 1.81 K/UL See_Comment [Automated messa ge] The system which generated this result transmitted reference range: 1.00-4.00 K/UL. The reference range was not used to interpret this result as normal/abnormal. ABSOLUTE MONOCYTES (test code = 34450-2) 0.41 K/UL See_Comment [Automated messa ge] The system which generated this result transmitted reference range: 0.20-1.00 K/UL. The reference range was not used to interpret this result as normal/abnormal. ABSOLUTE NEUTROPHILS (test code = 68204-9) 2.52 K/UL See_Comment [Automated messa ge] The system which generated this result transmitted reference range: 1.50-7.50 K/UL. The reference range was not used to interpret this result as normal/abnormal. BASOPHILS (test code = 34321-9) 0.6 % EOSINOPHILS (test code = 90839-6) 2.8 % HEMATOCRIT (test code = 27737-2) 43.2 % See_Comment [Automated messa ge] The [...] result as normal/abnormal. LYMPHOCYTES (test code = 23186-5) 36.8 % MCH (test code = 28718-1) 27.8 PG See_Comment [Automated messa ge] The system which generated this result transmitted reference range: 25.0-33.0 PG. The reference range was not used to interpret this result as normal/abnormal. MCHC (test code = 21121-0) 32.6 G/DL See_Comment [Automated messa ge] The system which generated this result transmitted reference range: 31.0-36.0 G/DL. The reference range was not used to interpret this result as normal/abnormal. MCV (test code = 80719-6) 85.0 fL See_Comment [Automated messa ge] The system which generated this result transmitted reference range: 80.0-99.0 fL. The reference range was not used to interpret this result as normal/abnormal. MONOCYTES (test code = 70079-4) 8.3 % NEUTROPHILS (test code = 47871-1) 51.3 % PLATELET COUNT (test code = 11141-0) 194 K/UL See_Comment [Automated messa ge] The system which generated this result transmitted reference range: 130-400 K/UL. The reference range was not used to interpret this result as normal/abnormal. RBC (test code = 52349-0) 5.08 M/UL See_Comment [Automated messa ge] The system which generated this result transmitted reference range: 3.80-5.40 M/UL. The reference range was not used to interpret this result as normal/abnormal. RDW (test code = 73745-3) 12.9 % See_Comment [Automated messa ge] The system which generated this result transmitted reference range: 11.5-15.0 %. The reference range was not used to interpret this result as normal/abnormal. WBC (test code = 70331-9) 4.9 K/UL See_Comment [Automated messa ge] The system which generated this result transmitted reference range: 3.5-11.0 K/UL. The reference range was not used to interpret this result as normal/abnormal. HEMOGLOBIN [id number] 00:00:00* Test Item Value Reference Range Interpretation Comme [facility] HEMOGLOBIN A1c (test code = 4548-4) 5.8 % See_Comment H [Automated messa ge] The system which generated this result transmitted reference range: 4.2-5.6 %. The reference range was not used to interpret this result as normal/abnormal. VITAMIN D, 25 [id number] 00:00:00* Test Item Value Reference Range Interpretation Comme [facility] VITAMIN D, 25 OH (test code = 1989-3) 20 NG/ML SEE BELOW NG/ML L LIPID PANEL WITH REFLEX DIRECT [id number] 00:00:00* Test Item Value Reference Range Interpretation Comme [facility] CALC LDL CHOL (test code = 60490-1) 164 MG/DL See_Comment H [Automated messa ge] [...] normal/abnormal. RISK RATIO LDL/HDL (test code = 96838-2) 3.15 RATIO See_Comment [Automated message] The system [...] interpret this result as normal/abnormal. COMPREHENSIVE METABOLIC [id number] 00:00:00* Test Item Value Reference Range Interpretation [...] result as normal/abnormal. CALCIUM (test code = 22309-2) 9.8 MG/DL See_Comment [Automated messa ge] The [...] as normal/abnormal. CALC GLOBULIN (test code = 10243-0) 2.5 G/DL See_Comment [Automated messa ge] The [...] normal/abnormal. eGFR (2020 CKD-EPI) (test code = 41129-5) 73 ML/MIN/1.73 See_Comment [Automated messa ge] The [...] code = 1742-6) 17 U/L See_Comment [Automated LY[employer]coma ge] The system which generated this result transmitted reference range: 5-40 U/L. The reference range was not used to interpret this result as normal/abnormal. SODIUM (test code = 2951-2) 144 MEQ/L See_Comment [Automated LY[employer]coma [employer]] The system which generated this result transmitted reference range: 133-146 MEQ/L. The reference range was not used to interpret this result as normal/abnormal. TSH, THIRD [id number] 05:29:52* Test Item Value Reference Range Interpretation Comme [facility] TSH, THIRD GENERATION (test code = 2821) 1.630 UIU/ML 0.400-4.100 VITAMIN D, 25 [id number] 05:21:29* Test Item Value Reference Range Interpretation Comme [facility] VITAMIN D, 25 OH (test code = [...] 30-100 UNLESS OTHERWISE INDICATED, [facility] [address] [place] [address] TEASELER: LUIS HUMPHREYS M.D. CLIA NUMBER [id number] [facility] [place]. [id number] HEMOGLOBIN [id number] 05:14:35* Test Item Value Reference Range Interpretation Comme nts HEMOGLOBIN A1c (test code = 64066) 5.8 % 4.2-5.6 H COMPREHENSIVE METABOLIC [id number] 05:08:46* Test Item Value Reference Range Interpretation Comme nts GLUCOSE (test code = 7) 107 MG/DL 70-99 H BUN (test code = 2207) 13 MG/DL 6-20 CREATININE (test code = 221) 0.86 MG/DL 0.60-1.30 eGFR (2020 CKD-EPI) (test code = 50214) 79 ML/MIN/1.73 >60 CALC BUN/CREAT (test code = 2235) 15 RATIO 6-28 SODIUM (test code = 223) 144 MEQ/L 133-146 POTASSIUM (test code = [...] code = 2219) 23 U/L 5-40 LIPID [id number] 05:08:46* Test Item Value Reference Range Interpretation [...] SPECIMENS. FOR MOREINFORMATION, SEE CLIENT ANNOUNCEMENT AT [email or web address] RISK RATIO LDL/HDL (test code = 2238) 2.28 RATIO <3.22 CBC W/AUTO DIFF WITH [id number] 03:31:03* Test Item Value Reference Range Interpretation [...] = 1065) 0.0 /100 WBC'S See_Comment [Automated [employer]] The system which generated this result transmitted [...] 0.00-0.10 ABS NUCLEATED RBCS (test code = 00864) 0.00 K/UL 0.00-0.11 COMPREHENSIVE METABOLIC [id number] 00:00:00* Test Item Value Reference Range Interpretation Comme nts GLUCOSE (test code = 2217) 107 MG/DL BUN (test code = 2208) 13 MG/DL CREATININE (test code = 2214) 0.86 MG/DL eGFR (2020 CKD-EPI) (test co de = 48141) 79 ML/MIN/1.73 CALC BUN/CREAT (test code = [...] (test code = 2219) 23 U/L Nicholas F AustinLIPID [id number] 00:00:00* Test Item Value Reference Range Interpretation Comme nts CHOLESTEROL (test code = 2210) 214 MG/DL TRIGLYCERIDES (test code = 2232) 80 MG/DL HDL CHOLESTEROL (test code = 2220) 60 MG/DL CALC LDL CHOL (test code = 2237) 137 MG/DL RISK RATIO LDL/HDL (test cod e = 2238) 2.28 RATIO Nicholas ChisholmHEMOGLOBIN [id number] 00:00:00* Test Item Value Reference Range Interpretation Comme nts HEMOGLOBIN A1c (test code = 02327) 5.8 % Nicholas [id number] 00:00:00* Test Item Value Reference Range Interpretation Comme nts TSH, THIRD GENERATION (test code = 2821) 1.630 UIU/ML Nicholas ChisholmCBC W/AUTO [id number] 00:00:00* Test Item Value Reference Range Interpretation [...] ABS NUCLEATED RBCS (test cod e = 42491) 0.00 K/UL Nicholas ChisholmVITAMIN D, 25 [id number] 00:00:00* Test Item Value Reference Range Interpretation Comme nts VITAMIN D, 25 OH (test code = 4958) 12 NG/ML Nicholas ChisholmCOMPREHENSIVE METABOLIC [id number] 00:00:00* Test Item Value Reference Range Interpretation Comme nts GLUCOSE (test code = 2217) 107 MG/DL BUN (test code = 2208) 13 MG/DL CREATININE (test code = 2214) 0.86 MG/DL eGFR (2020 CKD-EPI) (test co de = 59176) 79 ML/MIN/1.73 CALC BUN/CREAT (test code = [...] code = 2219) 23 U/L Nicholas ChisholmLIPID [id number] 00:00:00* Test Item Value Reference Range Interpretation Comme nts CHOLESTEROL (test code = 2210) 214 MG/DL TRIGLYCERIDES (test code = 2232) 80 MG/DL HDL CHOLESTEROL (test code = 2220) 60 MG/DL CALC LDL CHOL (test code = 2237) 137 MG/DL RISK RATIO LDL/HDL (test cod e = 2238) 2.28 RATIO Nicholas ChisholmHEMOGLOBIN [id number] 00:00:00* Test Item Value Reference Range Interpretation Comme [facility] HEMOGLOBIN A1c (test code = 21748) 5.8 % Nicholas [id number] 00:00:00* Test Item Value Reference Range Interpretation Comme [facility] TSH, THIRD GENERATION (test code = 2821) 1.630 UIU/ML Nicholas ChisholmCBC W/AUTO [id number] 00:00:00* Test Item Value Reference Range Interpretation [...] ABS NUCLEATED RBCS (test cod e = 41049) 0.00 K/UL Nicholas ChisholmVITAMIN D, 25 [id number] 00:00:00* Test Item Value Reference Range Interpretation Comme nts VITAMIN D, 25 OH (test code = 4958) 12 NG/ML Nicholas ChisholmCOMPREHENSIVE METABOLIC [id number] 00:00:00* Test Item Value Reference Range Interpretation Comme nts GLUCOSE (test code = 2217) 107 MG/DL BUN (test code = 2208) 13 MG/DL CREATININE (test code = 2214) 0.86 MG/DL eGFR (2020 CKD-EPI) (test co de = 30419) 79 ML/MIN/1.73 CALC BUN/CREAT (test code = [...] code = 2219) 23 U/L Nicholas ChisholmLIPID [id number] 00:00:00* Test Item Value Reference Range Interpretation Comme nts CHOLESTEROL (test code = 2210) 214 MG/DL TRIGLYCERIDES (test code = 2232) 80 MG/DL HDL CHOLESTEROL (test code = 2220) 60 MG/DL CALC LDL CHOL (test code = 2237) 137 MG/DL RISK RATIO LDL/HDL (test cod e = 2238) 2.28 RATIO Nicholas ChisholmHEMOGLOBIN [id number] 00:00:00* Test Item Value Reference Range Interpretation Comme nts HEMOGLOBIN A1c (test code = 45928) 5.8 % Nicholas [id number] 00:00:00* Test Item Value Reference Range Interpretation Comme nts TSH, THIRD GENERATION (test code = 2821) 1.630 UIU/ML Nicholas ChisholmCBC W/AUTO [id number] 00:00:00* Test Item Value Reference Range Interpretation [...] ABS NUCLEATED RBCS (test cod e = 40704) 0.00 K/UL Nicholas ChisholmVITAMIN D, 25 [id number] 00:00:00* Test Item Value Reference Range Interpretation Comme nts VITAMIN D, 25 OH (test code = 4958) 12 NG/ML Nicholas Goldman AustinHCV RNA, PCR [id number] 00:00:00* Test Item Value Reference Range Interpretation Comme nts HCV RNA, PCR QUANT (test code = 4571) NOT DETEC IU/ML HCV VIRAL LOG (test code = 98234) NOT DETEC LOGIU/ML Nicholas Goldman AustinHCV RNA, PCR [id number] 00:00:00* Test Item Value Reference Range Interpretation Comme nts HCV RNA, PCR QUANT (test code = 4571) NOT DETEC IU/ML HCV VIRAL LOG (test code = 33035) NOT DETEC LOGIU/ML Nicholas Goldman AustinHCV RNA, PCR [id number] 00:00:00* Test Item Value Reference Range Interpretation Comme nts HCV RNA, PCR QUANT (test code = 4571) NOT DETEC IU/ML HCV VIRAL LOG (test code = 78790) NOT DETEC LOGIU/ML Nicholas ChisholmCBC W/AUTO [id number] 00:00:00* Test Item Value Reference Range Interpretation [...] (test code = 1015) 190 K/UL Nicholas [id number] 00:00:00* Test Item Value Reference Range Interpretation Comme nts TSH, THIRD GENERATION (test code = 2821) 1.570 UIU/ML Nicholas ChisholmCOMPREHENSIVE METABOLIC [id number] 00:00:00* Test Item Value Reference Range Interpretation Comme nts GLUCOSE (test code = 2217) 118 MG/DL BUN (test code = 2208) 8 MG/DL CREATININE (test code = 2214) 0.75 MG/DL eGFR AMER. (test cod e = 17825) 104 ML/MIN/1.73 eGFR NON- AMER. (test code = 14369) 90 ML/MIN/1.73 CALC BUN/CREAT (test code = [...] = 2219) 18 U/L Nicholas ChisholmCBC W/AUTO [id number] 00:00:00* Test Item Value Reference Range Interpretation [...] (test code = 1015) 190 K/UL Nicholas [id number] 00:00:00* Test Item Value Reference Range Interpretation Comme nts TSH, THIRD GENERATION (test code = 2821) 1.570 UIU/ML Nicholas ChisholmCOMPREHENSIVE METABOLIC [id number] 00:00:00* Test Item Value Reference Range Interpretation Comme nts GLUCOSE (test code = 2217) 118 MG/DL BUN (test code = 2208) 8 MG/DL CREATININE (test code = 2214) 0.75 MG/DL eGFR AMER. (test cod e = 17642) 104 ML/MIN/1.73 eGFR NON- AMER. (test code = 62235) 90 ML/MIN/1.73 CALC BUN/CREAT (test code = [...] = 2219) 18 U/L Nicholas ChisholmCBC W/AUTO [id number] 00:00:00* Test Item Value Reference Range Interpretation [...] (test code = 1015) 190 K/UL Nicholas [id number] 00:00:00* Test Item Value Reference Range Interpretation Comme nts TSH, THIRD GENERATION (test code = 2821) 1.570 UIU/ML Nicholas ChisholmCOMPREHENSIVE METABOLIC [id number] 00:00:00* Test Item Value Reference Range Interpretation Comme nts GLUCOSE (test code = 2217) 118 MG/DL BUN (test code = 2208) 8 MG/DL CREATININE (test code = 2214) 0.75 MG/DL eGFR AMER. (test cod e = 02926) 104 ML/MIN/1.73 eGFR NON- AMER. (test code = 69771) 90 ML/MIN/1.73 CALC BUN/CREAT (test code = [...] (test code = 2219) 18 U/L Nicholas ChisholmGC AND CHLAMYDIA AMPLIFIED, [id number] 00:00:00* Test Item Value Reference Range Interpretation Comme nts GONORRHEA, TMA (test code = 46098) NEGATIVE CHLAMYDIA, TMA (test code = 12111) NEGATIVE Nicholas ChisholmHIV AB/AG COMBO RFLX [id number] 00:00:00* Test Item Value Reference Range Interpretation Comme nts HIV 1/2 4TH GEN, RFLX CONF ( test code = 3514) NON-REACTIVE Nicholas ChisholmPAP TEST, THINPREP, [id number] 00:00:00* Test Item Value Reference Range Interpretation Comme nts SOURCE: (test code = 8001) Cervical/Endocervical SLIDES: (test code = 8011) 1 LMP: (test code = 8021) SEE NOTE SPECIMEN ADEQUACY: (test code = 97919) (NOTE) INTERPRETATION: (test code = 46178) NILM/NO EPITH. ABNORMALITY;SEE BELOW OTHER COMMENTS: (test code = 8081) (NOTE) PARALEGAL INSTRUCTOR: (test code = 8101) ASHTYN Morales(ASCP)IA C LOCATION: (test code = 14722) (NOTE) CPT: (test code = 8140) (NOTE) Nicholas ChisholmACUTE HEPATITIS [id number] 00:00:00* Test Item Value Reference Range Interpretation Comme nts HEPATITIS A IgM (test code = 14483) NON-REACTIVE HEPATITIS B CORE IgM (test c ode = 4644) NON-REACTIVE HEPATITIS B SURF AG (test co de = 1018) NON-REACTIVE HEPATITIS C ANTIBODY (test c ode = 7604) REACTIVE INTERPRETATION HEPATITIS A: (test code = 2552) (NOTE) INTERPRETATION HEPATITIS B: (test code = 44120) (NOTE) INTERPRETATION HEPATITIS C: (test code = 51192) (NOTE) Nicholas [id number] 00:00:00* Test Item Value Reference Range Interpretation Comme nts RPR RESULT (test code = 3501) NON-REACTIVE RPR TITER (test code = 3500) NOT INDIC. TITER Nicholas ChisholmHPV HIGH RISK WITH GENOTYPE, [id number] 00:00:00* Test Item Value Reference Range Interpretation Comme nts HPV HIGH RISK INTERP (test c ode = 36842) NEGATIVE HPV 16 (test code = 34524) NEGATIVE HPV 18 (test code = 03125) NEGATIVE HPV, HR, OTHER GENOTYPES (te st code = 89734) NEGATIVE Nicholas ChisholmHIV AB/AG COMBO RFLX [id number] 00:00:00* Test Item Value Reference Range Interpretation Comme nts HIV 1/2 4TH GEN, RFLX CONF ( test code = 3514) NON-REACTIVE Nicholas ChisholmGC AND CHLAMYDIA AMPLIFIED, [id number] 00:00:00* Test Item Value Reference Range Interpretation Comme nts GONORRHEA, TMA (test code = 30451) NEGATIVE CHLAMYDIA, TMA (test code = 82311) NEGATIVE Nicholas ChisholmPAP TEST, THINPREP, [id number] 00:00:00* Test Item Value Reference Range Interpretation Comme nts SOURCE: (test code = 8001) Cervical/Endocervical SLIDES: (test code = 8011) 1 LMP: (test code = 8021) SEE NOTE SPECIMEN ADEQUACY: (test code = 76011) (NOTE) INTERPRETATION: (test code = 78131) NILM/NO EPITH. ABNORMALITY;SEE BELOW OTHER COMMENTS: (test code = 8081) (NOTE) PARALEGAL INSTRUCTOR: (test code = 8101) ASHTYN Morales(ASCP)IA C LOCATION: (test code = 87530) (NOTE) CPT: (test code = 8140) (NOTE) Nicholas ChisholmACUTE HEPATITIS [id number] 00:00:00* Test Item Value Reference Range Interpretation Comme nts HEPATITIS A IgM (test code = 85447) NON-REACTIVE HEPATITIS B CORE IgM (test c ode = 4644) NON-REACTIVE HEPATITIS B SURF AG (test co de = 2739) NON-REACTIVE HEPATITIS C ANTIBODY (test c ode = 4675) REACTIVE INTERPRETATION HEPATITIS A: (test code = 2552) (NOTE) INTERPRETATION HEPATITIS B: (test code = 17272) (NOTE) INTERPRETATION HEPATITIS C: (test code = 43114) (NOTE) Nicholas ChisholmHPV HIGH RISK WITH GENOTYPE, [id number] 00:00:00* Test Item Value Reference Range Interpretation Comme nts HPV HIGH RISK INTERP (test c ode = 06411) NEGATIVE HPV 16 (test code = 21491) NEGATIVE HPV 18 (test code = 87940) NEGATIVE HPV, HR, OTHER GENOTYPES (te st code = 96379) NEGATIVE Nicholas [id number] 00:00:00* Test Item Value Reference Range Interpretation Comme nts RPR RESULT (test code = 3501) NON-REACTIVE RPR TITER (test code = 3500) NOT INDIC. TITER Nicholas ChisholmHIV AB/AG COMBO RFLX [id number] 00:00:00* Test Item Value Reference Range Interpretation Comme nts HIV 1/2 4TH GEN, RFLX CONF ( test code = 3514) NON-REACTIVE Nicholas ChisholmGC AND CHLAMYDIA AMPLIFIED, [id number] 00:00:00* Test Item Value Reference Range Interpretation Comme nts GONORRHEA, TMA (test code = 72638) NEGATIVE CHLAMYDIA, TMA (test code = 66340) NEGATIVE Nicholas ChsiholmACUTE HEPATITIS [id number] 00:00:00* Test Item Value Reference Range Interpretation Comme nts HEPATITIS A IgM (test code = 05327) NON-REACTIVE HEPATITIS B CORE IgM (test c ode = 4644) NON-REACTIVE HEPATITIS B SURF AG (test co de = 2739) NON-REACTIVE HEPATITIS C ANTIBODY (test c ode = 4675) REACTIVE INTERPRETATION HEPATITIS A: (test code = 2552) (NOTE) INTERPRETATION HEPATITIS B: (test code = 87351) (NOTE) INTERPRETATION HEPATITIS C: (test code = 63961) (NOTE) Nicholas ChisholmPAP TEST, THINPREP, [id number] 00:00:00* Test Item Value Reference Range Interpretation Comme nts SOURCE: (test code = 8001) Cervical/Endocervical SLIDES: (test code = 8011) 1 LMP: (test code = 8021) SEE NOTE SPECIMEN ADEQUACY: (test code = 17017) (NOTE) INTERPRETATION: (test code = 52564) NILM/NO EPITH. ABNORMALITY;SEE BELOW OTHER COMMENTS: (test code = 8081) (NOTE) PARALEGAL INSTRUCTOR: (test code = 8101) ASHTYN Morales(ASCP)IA C LOCATION: (test code = 66004) (NOTE) CPT: (test code = 8140) (NOTE) Nicholas ChisholmHPV HIGH RISK WITH GENOTYPE, [id number] 00:00:00* Test Item Value Reference Range Interpretation Comme nts HPV HIGH RISK INTERP (test c ode = 02837) NEGATIVE HPV 16 (test code = 87453) NEGATIVE HPV 18 (test code = 80192) NEGATIVE HPV, HR, OTHER GENOTYPES (te st code = 36936) NEGATIVE Nicholas [id number] 00:00:00* Test Item Value Reference Range Interpretation Comme nts RPR RESULT (test code = 3501) NON-REACTIVE RPR TITER (test code = 3500) NOT INDIC. TITER Nicholas Chisholm3D SCR BREEZY BILAT W/CAD3D SCR BREEZY BILAT W/CAD3D SCR BREEZY BILAT W/CAD3D SCR BREEZY BILAT W/CADPOC, COVID 19 Antigen + Flu by SofiaPOC, COVID 19 Antigen + Flu by Renetta Notes Date/Time Note Provider Source Nicholas Guillen [facility]2024-08-05 00:00:00 Plan Activity triamcinolone acetonide 0.1 % [...] results RTC 1-2 weeks for follow-up 2024-01-27 Continue lomaira 4 mg/topoma x 25 mg po am x 7 days and consider increasing to 7.5 mg/46 mg po qam Discussed CHN weight loss protocol visits May consider GLP 1 agonist later verified with flip melara with overweight and HLD/prediabetes 2024-06-15 COLOGUARD 2024-06-26 Continue lomaira 4 mg/topoma x 25 mg po am x 7 days and consider increasing to 7.5 mg/46 mg po qam Discussed CHN weight loss protocol visits May consider GLP 1 agonist later verified with flip melara with overweight and HLD/prediabetes 2024-06-26 Nicholas Chisholm [facility]2024-07-25 00:00:00 Plan Activity triamcinolone acetonide 0.1 [...] obesity meds to start 2024-06-15 Nicholas Chisholm [facility]
== END 2024-07-07 17:50 | disposition home or self-care (01) ==
LOC: ER 13:19
DX: R06.02 Shortness of breath (principal); J30.9 Allergic rhinitis, unspecified; F41.9 Anxiety disorder, unspecified; R73.03 Prediabetes; Z11.52 Encounter for screening for COVID-19
CPT/HCPCS: 85025; 80048; 36415; 83735; 85379; 87804 ×2; 71045; 99284; 87811; J7512; J7613